=== PATIENT | male | born 1965 | race Caucasian/White ===

== ENCOUNTER 2017-05-09 15:52 | Emergency (ER) | payer OTHER ==
[~2017-05-09] VITALS: Ht 170.2 cm; Wt 91.6 kg
[~2017-05-09 15:52] MED LIST: ALBU18 IN; ASP81EC PO; ATO40T PO; CAR125T PO; CETI10CH PO; CHOL1TAB42 PO; FLUT50SP13; FURO20TA PO; HYDR-4663 PO; LEVO100T8 PO; LOSA25TA9 PO; OME20T PO; PRAM0.12 PO; SERT-138 PO; SPIR25TA89 PO
[2017-05-09 16:41] LABS: Basophils # (auto) 0 uL; Basophils % (auto) 0.4 % (0.0-2.0); CONDITION Y; Eosinophils # (auto) 0.3 uL; Eosinophils % (auto) 2.2 % (0.0-7.0); Hematocrit 48.6 % (41.0-53.0); Hemoglobin 16.9 g/dL (13.5-17.5); Lymphocytes # (auto) 2.1 uL; Lymphocytes % (auto) 17.3 % (10.0-50.0); Mean Corpuscular Hgb Conc. 34.8 g/dL (32.0-36.0); Mean Corpuscular Volume 86.3 fL (80.0-100.0); Mean Platelet Volume 9.5 fL (7.4-10.4); Monocytes # (auto) 0.7 uL; Monocytes % (auto) 6.1 % (0.0-12.0); Neutrophils # (auto) 8.8 uL; Platelet Count (auto) 237 10^3/uL (140-450); Red Cell Distribution Width 14.3 % (11.6-16.0); White Blood Cell 11.9 10^3/uL (4.4-10.8)
[2017-05-09 17:01] LABS: Albumin 3.8 g/dL (3.4-5.0); Alkaline Phosphatase 163 U/L (45-117); Anion Gap 9 (5-15); Aspartate Aminotransferase 17 U/L (15-37); BUN/Creatinine Ratio 12.3; Bilirubin, Total 0.3 mg/dL (0.2-1.0); Blood Urea Nitrogen 10 mg/dL (7-18); Calcium 9.1 mg/dL (8.5-10.1); Carbon Dioxide 24 mmol/L (21-32); Chloride 104 mmol/L (98-107); GFR African American 130 mL/min; GFR Non-African American 108 mL/min; Glucose 94 mg/dL (74-106); Magnesium 2.2 mg/dL (1.6-2.6); Potassium 3.8 mmol/L (3.5-5.1); Sodium 137 mmol/L (136-145); Total Protein 7.9 g/dL (6.4-8.2)
[2017-05-09 17:04] LABS: B-Type Natriuretic Peptide 13.21 pg/mL (0-100)
[2017-05-09] MEDS ORDERED: ASPirin 325 MG TAB PO ONE (17:15)
[2017-05-09 17:25] LABS: Temperature: 22.9 C (20.0-25.0)
[2017-05-09 17:49] VITALS: BP 143/81
== END 2017-05-09 17:54 | disposition home or self-care (01) ==
LOC: ER 15:55
DX: R07.89 Other chest pain (principal); J40 Bronchitis, not specified as acute or chronic; J44.9 Chronic obstructive pulmonary disease, unspecified; I13.0 Hypertensive heart and chronic kidney disease with heart failure and stage 1 through stage 4 chronic kidney disease, or unspecified chronic kidney disease; N18.9 Chronic kidney disease, unspecified; I50.9 Heart failure, unspecified; R51 Headache; I25.2 Old myocardial infarction; E07.9 Disorder of thyroid, unspecified; F17.210 Nicotine dependence, cigarettes, uncomplicated; Z79.82 Long term (current) use of aspirin; Z88.0 Allergy status to penicillin
CPT/HCPCS: 36415; 70450; 71020; 80053; 83735; 83880; 84484; 85025; 93005

== ENCOUNTER 2017-06-13 17:29 | Emergency (ER) | payer OTHER ==
[~2017-06-13] VITALS: Ht 170.2 cm; Wt 89.4 kg
[2017-06-13 17:43] VITALS: BP 120/75
[2017-06-13 18:26] LABS: Urine Bilirubin Negative (Negative); Urine Blood Negative /uL (Negative); Urine Color Yellow (Yellow); Urine Glucose Normal (Normal); Urine Ketone Negative (Negative); Urine Mucus FEW (None Seen); Urine Nitrite Negative (Negative); Urine RBC 1 /hpf (0 - 3); Urine Squamous Epithelial Cell FEW /hpf (<5); Urine Urobilinogen Normal (Negative); Urine pH 5.5 (5.0-8.0)
[2017-06-13 18:40] LABS: B-Type Natriuretic Peptide 14.39 pg/mL (0-100)
[2017-06-13 18:41] LABS: Albumin 3.9 g/dL (3.4-5.0); Alkaline Phosphatase 159 U/L (45-117); Anion Gap 8 (5-15); Aspartate Aminotransferase 19 U/L (15-37); BUN/Creatinine Ratio 10.3; Bilirubin, Total 0.3 mg/dL (0.2-1.0); Blood Urea Nitrogen 9 mg/dL (7-18); Carbon Dioxide 25 mmol/L (21-32); Chloride 104 mmol/L (98-107); GFR African American 120 mL/min; GFR Non-African American 99 mL/min; Glucose 92 mg/dL (74-106); Magnesium 2.3 mg/dL (1.6-2.6); Potassium 3.7 mmol/L (3.5-5.1); Sodium 137 mmol/L (136-145); Temperature: 22.2 C (20.0-25.0); Total Protein 7.8 g/dL (6.4-8.2)
[2017-06-13 21:15] LABS: Basophils # (auto) 0.1 uL; Basophils % (auto) 0.7 % (0.0-2.0); CONDITION Y; Eosinophils # (auto) 0.4 uL; Eosinophils % (auto) 3.3 % (0.0-7.0); Hemoglobin 16.5 g/dL (13.5-17.5); Lymphocytes # (auto) 2.8 uL; Lymphocytes % (auto) 23.4 % (10.0-50.0); Mean Corpuscular Hemoglobin 28.9 pg (28.0-32.0); Mean Corpuscular Hgb Conc. 33.8 g/dL (32.0-36.0); Mean Corpuscular Volume 85.7 fL (80.0-100.0); Monocytes # (auto) 0.8 uL; Neutrophils # (auto) 7.8 uL; Neutrophils % (auto) 65.6 % (37.0-80.0); Platelet Count (auto) 272 10^3/uL (140-450); Red Cell Distribution Width 14.2 % (11.6-16.0); White Blood Cell 11.9 10^3/uL (4.4-10.8)
[2017-06-15] MEDS ORDERED: LOSA25TA9 PO (01:41)
[2017-06-15] MEDS ORDERED: CARV12.544 PO (01:41)
== END 2017-06-13 21:51 | disposition left against medical advice (07) ==
LOC: ER 17:53
DX: R07.89 Other chest pain (principal); Z53.21 Procedure and treatment not carried out due to patient leaving prior to being seen by health care provider
CPT/HCPCS: 36415; 71010; 80053; 81001; 83735; 83880; 84484; 93005

== ENCOUNTER 2017-12-20 03:16 | Emergency (ER) | payer OTHER ==
[~2017-12-20] VITALS: Ht 170.2 cm; Wt 86.2 kg
[~2017-12-20 03:16] MED LIST changes: -HYDR-4663 PO
[2017-12-20] MEDS ORDERED: NALBUPHINE HCL 10 MG/1ml INJECTION IM ONE (07:15)
[2017-12-20 07:21] VITALS: BP 148/88
== END 2017-12-20 07:43 | disposition home or self-care (01) ==
LOC: ER 03:16
DX: M43.6 Torticollis (principal); I13.0 Hypertensive heart and chronic kidney disease with heart failure and stage 1 through stage 4 chronic kidney disease, or unspecified chronic kidney disease; I50.9 Heart failure, unspecified; N18.9 Chronic kidney disease, unspecified; J44.9 Chronic obstructive pulmonary disease, unspecified; I25.2 Old myocardial infarction; E07.9 Disorder of thyroid, unspecified; Z90.49 Acquired absence of other specified parts of digestive tract; F17.210 Nicotine dependence, cigarettes, uncomplicated
CPT/HCPCS: 70450; 96372; 99284; J2300

== ENCOUNTER 2018-07-14 13:59 | Emergency (ER) | payer OTHER ==
[~2018-07-14] VITALS: Ht 170.2 cm; Wt 88.9 kg
[~2018-07-14 13:59] MED LIST changes: +LOSA25TA40 PO; -LOSA25TA9 PO; -SPIR25TA89 PO
[2018-07-14 14:12] VITALS: BP 146/84
[2018-07-14] MEDS ORDERED: INDOMETHACIN 25 MG CAP PO ONE (15:00)
== END 2018-07-14 15:19 | disposition home or self-care (01) ==
LOC: ER 13:59
DX: M25.571 Pain in right ankle and joints of right foot (principal); I13.0 Hypertensive heart and chronic kidney disease with heart failure and stage 1 through stage 4 chronic kidney disease, or unspecified chronic kidney disease; N18.9 Chronic kidney disease, unspecified; I50.9 Heart failure, unspecified; J44.9 Chronic obstructive pulmonary disease, unspecified; E07.9 Disorder of thyroid, unspecified; I25.2 Old myocardial infarction; F17.210 Nicotine dependence, cigarettes, uncomplicated; Z88.0 Allergy status to penicillin; Z79.899 Other long term (current) drug therapy; Z79.82 Long term (current) use of aspirin
CPT/HCPCS: 73610

== ENCOUNTER 2018-08-26 21:13 | Inpatient (IN) | payer OTHER ==
[~2018-08-26] VITALS: Ht 170.2 cm; Wt 90.0 kg
[2018-08-26 22:01] LABS: Urine Bacteria NONE SEEN /hpf (None Seen); Urine Blood Negative /uL (Negative); Urine Hyaline Cast FEW /lpf (0 - 2); Urine Mucus FEW (None Seen); Urine Specific Gravity 1.015 (1.001-1.035); Urine WBC 4 /hpf (0 - 3)
[2018-08-26 22:07] LABS: Basophils # (auto) 0 uL; Basophils % (auto) 0.3 % (0.0-2.0); Eosinophils # (auto) 0.4 uL; Eosinophils % (auto) 3.4 % (0.0-7.0); Hemoglobin 17.5 g/dL (13.5-17.5); Lymphocytes # (auto) 3.3 uL; Mean Corpuscular Hemoglobin 29.7 pg (28.0-32.0); Mean Corpuscular Hgb Conc. 34.2 g/dL (32.0-36.0); Mean Corpuscular Volume 86.8 fL (80.0-100.0); Monocytes % (auto) 8.5 % (0.0-12.0); Neutrophils # (auto) 7.1 uL; Neutrophils % (auto) 59.8 % (37.0-80.0); Nucleated Red Blood Cells % 0.2 %; Platelet Count (auto) 245 10^3/uL (140-450); Red Blood Cells 5.88 10^6/uL (4.5-5.90); Red Cell Distribution Width 14.3 % (11.8-14.3); White Blood Cell 11.9 10^3/uL (4.4-10.8)
[2018-08-26 22:21] LABS: Alanine Aminotransferase 27 U/L (16-61); Anion Gap 10 (5-15); BUN/Creatinine Ratio 10.6; Blood Urea Nitrogen 11 mg/dL (7-18); Calcium 8.7 mg/dL (8.5-10.1); Carbon Dioxide 25 mmol/L (21-32); Chloride 104 mmol/L (98-107); GFR African American 97 mL/min; GFR Non-African American 80 mL/min; Glucose 92 mg/dL (74-106); Magnesium 2.2 mg/dL (1.6-2.6); Potassium 3.6 mmol/L (3.5-5.1); Sodium 139 mmol/L (136-145)
[2018-08-26 22:29] LABS: Alkaline Phosphatase 155 U/L (45-117); Aspartate Aminotransferase 21 U/L (15-37); Bilirubin, Total 0.5 mg/dL (0.2-1.0); Total Protein 7.9 g/dL (6.4-8.2)
[2018-08-27] MEDS ORDERED: FUROSEMIDE 20 MG/2 ML VIAL IV ONE (00:45)
[2018-08-27] MEDS ORDERED: NITROGLYCERIN 0.4 MG SL TAB SL PRN (02:45)
[2018-08-27] MEDS ORDERED: MORPHINE SULFATE 4 MG/ML SYR/VIAL IV PRN (02:45)
[2018-08-27] MEDS ORDERED: ACETAMINOPHEN 500 MG TAB PO PRN (02:45)
[2018-08-27] MEDS ORDERED: ONDANSETRON HCL 4 MG/2 ML VIAL IV PRN (02:45)
[2018-08-27] MEDS ORDERED: HYDROcodone-ACET 5/325MG TAB PO PRN (02:45)
[2018-08-27 03:50] VITALS: BP 122/84
[2018-08-27 05:00] VITALS: BP 122/84
[2018-08-27] MEDS ORDERED: ATOR1TAB PO (05:04)
[2018-08-27] MEDS ORDERED: LOSA25TA40 PO (05:04)
[2018-08-27] MEDS: LEVOTHYROXINE SODIUM 100 MCG TAB PO SCH (06:37)
[2018-08-27 09:00] VITALS: BP 126/78
[2018-08-27] MEDS: CARVEDILOL 12.5 MG TAB PO SCH ×2 (09:47→22:19)
[2018-08-27] MEDS: SERTRALINE HCL 50 MG TAB PO SCH (09:47)
[2018-08-27] MEDS: ASPirin-EC 81 mg tab PO SCH (09:47)
[2018-08-27] MEDS: FUROSEMIDE 20 MG TAB PO SCH (09:48)
[2018-08-27 13:00] VITALS: BP 110/68
[2018-08-27] MEDS: ENOXAPARIN SOD 40 MG/0.4 ML SYRINGE SC SCH (13:40)
[2018-08-27 17:00] VITALS: BP 106/71
[2018-08-27 22:00] VITALS: BP 122/74
[2018-08-27] MEDS ORDERED: PRAMIPEXOLE DIHYDROCHLORIDE MO 0.25 MG TAB PO SCH (22:00)
[2018-08-27] MEDS ORDERED: ATORVASTATIN 20 MG TAB PO SCH (22:00)
[2018-08-28 05:45] VITALS: BP 114/64
[2018-08-28] MEDS: LEVOTHYROXINE SODIUM 100 MCG TAB PO SCH (06:38)
[2018-08-28 08:00] LABS: Basophils # (auto) 0.1 uL; Eosinophils # (auto) 0.3 uL; Eosinophils % (auto) 3.3 % (0.0-7.0); Hematocrit 50.7 % (41.0-53.0); Hemoglobin 17.3 g/dL (13.5-17.5); Lymphocytes # (auto) 2.4 uL; Lymphocytes % (auto) 28.7 % (10.0-50.0); Mean Corpuscular Hemoglobin 29.4 pg (28.0-32.0); Mean Corpuscular Hgb Conc. 34.1 g/dL (32.0-36.0); Mean Corpuscular Volume 86.4 fL (80.0-100.0); Monocytes # (auto) 0.7 uL; Monocytes % (auto) 8.6 % (0.0-12.0); Neutrophils # (auto) 4.9 uL; Neutrophils % (auto) 58.4 % (37.0-80.0); Nucleated Red Blood Cells % 0.2 %; Platelet Count (auto) 202 10^3/uL (140-450); Red Blood Cells 5.87 10^6/uL (4.5-5.90); Red Cell Distribution Width 14.7 % (11.8-14.3); White Blood Cell 8.5 10^3/uL (4.4-10.8)
[2018-08-28 08:19] LABS: BUN/Creatinine Ratio 18.1; Potassium 3.8 mmol/L (3.5-5.1)
[2018-08-28 09:15] VITALS: BP 125/85
[2018-08-28] MEDS: FUROSEMIDE 20 MG TAB PO SCH (09:26)
[2018-08-28] MEDS: ENOXAPARIN SOD 40 MG/0.4 ML SYRINGE SC SCH (09:26)
[2018-08-28] MEDS: ASPirin-EC 81 mg tab PO SCH (09:27)
[2018-08-28] MEDS: SERTRALINE HCL 50 MG TAB PO SCH (09:27)
[2018-08-28] MEDS: CARVEDILOL 12.5 MG TAB PO SCH (09:27)
[2018-08-28 13:02] VITALS: BP 125/85
[2018-08-28 13:18] VITALS: BP 117/90
== END 2018-08-28 14:30 | disposition home or self-care (01) | DRG 194 ==
LOC: ER 21:14 → TELE 21:15 → TELE-CENTR 08-27 03:46
PROVIDERS: ADMIT Nurse Practitioner Family; ATTEND Internal Medicine
DX: I11.0 Hypertensive heart disease with heart failure (principal); E03.9 Hypothyroidism, unspecified; I50.43 Acute on chronic combined systolic (congestive) and diastolic (congestive) heart failure; I25.10 Atherosclerotic heart disease of native coronary artery without angina pectoris; E78.5 Hyperlipidemia, unspecified; F17.210 Nicotine dependence, cigarettes, uncomplicated; F32.9 Major depressive disorder, single episode, unspecified; F41.9 Anxiety disorder, unspecified; J44.9 Chronic obstructive pulmonary disease, unspecified; F10.10 Alcohol abuse, uncomplicated; Z79.82 Long term (current) use of aspirin; Z80.3 Family history of malignant neoplasm of breast; Z82.3 Family history of stroke; Z82.49 Family history of ischemic heart disease and other diseases of the circulatory system; Z95.810 Presence of automatic (implantable) cardiac defibrillator; Z83.3 Family history of diabetes mellitus; Z88.0 Allergy status to penicillin; Z71.41 Alcohol abuse counseling and surveillance of alcoholic; Z71.6 Tobacco abuse counseling; R07.2 Precordial pain
CPT/HCPCS: 36415; 71045; 80048; 80053; 81001; 83735; 83880; 84484; 85025; 93005; 93306; 94761; 96374; G0378

== ENCOUNTER 2019-03-14 17:18 | Emergency (ER) | payer MEDICAID, OTHER ==
[~2019-03-14] VITALS: Ht 170.2 cm; Wt 91.6 kg
[~2019-03-14 17:18] MED LIST changes: -ATO40T PO; +ATOR1TAB PO
[2019-03-14 20:03] LABS: Basophils # (auto) 0.1 uL; Basophils % (auto) 1.1 % (0.0-2.0); Eosinophils # (auto) 0.3 uL; Eosinophils % (auto) 3.2 % (0.0-7.0); Hematocrit 48.6 % (41.0-53.0); Lymphocytes % (auto) 28.9 % (10.0-50.0); Mean Corpuscular Hemoglobin 30.2 pg (28.0-32.0); Mean Corpuscular Volume 86.1 fL (80.0-100.0); Monocytes # (auto) 0.7 uL; Monocytes % (auto) 6.9 % (0.0-12.0); Neutrophils # (auto) 6.1 uL; Neutrophils % (auto) 59.9 % (37.0-80.0); Nucleated Red Blood Cells % 0.2 %; Platelet Count (auto) 217 10^3/uL (140-450); Red Blood Cells 5.64 10^6/uL (4.5-5.90); Red Cell Distribution Width 14.2 % (11.8-14.3); White Blood Cell 10.3 10^3/uL (4.4-10.8)
[2019-03-14 20:17] LABS: Albumin 3.9 g/dL (3.4-5.0); Calcium 8.9 mg/dL (8.5-10.1); Potassium 3.6 mmol/L (3.5-5.1)
[2019-03-14 20:20] LABS: Bilirubin, Total 0.5 mg/dL (0.2-1.0); Total Protein 7.7 g/dL (6.4-8.2)
[2019-03-14 23:54] VITALS: BP 125/99
[2019-03-15] MEDS ORDERED: KETOROLAC TROMETH 60MG/2ML VIAL IM ONE
== END 2019-03-15 00:36 | disposition home or self-care (01) ==
LOC: ER 17:18
DX: R51 Headache (principal); R42 Dizziness and giddiness; E11.22 Type 2 diabetes mellitus with diabetic chronic kidney disease; I13.0 Hypertensive heart and chronic kidney disease with heart failure and stage 1 through stage 4 chronic kidney disease, or unspecified chronic kidney disease; N18.9 Chronic kidney disease, unspecified; I50.9 Heart failure, unspecified; J44.9 Chronic obstructive pulmonary disease, unspecified; I25.2 Old myocardial infarction; F17.210 Nicotine dependence, cigarettes, uncomplicated; Z86.39 Personal history of other endocrine, nutritional and metabolic disease; Z79.4 Long term (current) use of insulin; Z95.0 Presence of cardiac pacemaker
CPT/HCPCS: 36415; 70450; 72125; 80053; 85025; 96372; 99284; J1885

== ENCOUNTER 2019-06-12 20:33 | Inpatient (IN) | payer MEDICAID ==
[~2019-06-12] VITALS: Ht 170.2 cm; Wt 98.2 kg
[~2019-06-12 20:33] MED LIST changes: +FURO1TAB33 PO; -FURO20TA PO; +LOSA25TA38 PO; -LOSA25TA40 PO; -SERT-138 PO; +SERT50TA PO
[2019-06-12 21:24] LABS: Basophils # (auto) 0.1 uL; Basophils % (auto) 1.1 % (0.0-2.0); Eosinophils # (auto) 0.4 uL; Eosinophils % (auto) 3.6 % (0.0-7.0); Hematocrit 46.9 % (41.0-53.0); Hemoglobin 16.1 g/dL (13.5-17.5); Lymphocytes # (auto) 3.2 uL; Lymphocytes % (auto) 31.1 % (10.0-50.0); Mean Corpuscular Hemoglobin 29.4 pg (28.0-32.0); Mean Corpuscular Hgb Conc. 34.4 g/dL (32.0-36.0); Mean Corpuscular Volume 85.4 fL (80.0-100.0); Monocytes # (auto) 0.9 uL; Monocytes % (auto) 9.1 % (0.0-12.0); Neutrophils # (auto) 5.7 uL; Neutrophils % (auto) 55.1 % (37.0-80.0); Platelet Count (auto) 221 10^3/uL (140-450); Red Cell Distribution Width 14.5 % (11.8-14.3); White Blood Cell 10.3 10^3/uL (4.4-10.8)
[2019-06-12] MEDS ORDERED: LORazepam 0.5 MG TAB PO ONE (21:30)
[2019-06-12] MEDS ORDERED: NITROGLYCERIN 0.2MG/HR TOPICAL PATCH TD ONE (21:30)
[2019-06-12] MEDS ORDERED: ASPirin-EC 325mg tab PO ONE (21:30)
[2019-06-12 21:38] LABS: Alanine Aminotransferase 28 U/L (16-61); Albumin 3.5 g/dL (3.4-5.0); Anion Gap 9 (5-15); Aspartate Aminotransferase 19 U/L (15-37); BUN/Creatinine Ratio 6.1; Blood Urea Nitrogen 6 mg/dL (7-18); Calcium 8.4 mg/dL (8.5-10.1); Carbon Dioxide 27 mmol/L (21-32); Chloride 104 mmol/L (98-107); GFR African American 104 mL/min; GFR Non-African American 86 mL/min; Glucose 114 mg/dL (74-106); Magnesium 2.2 mg/dL (1.6-2.6); Potassium 3.5 mmol/L (3.5-5.1); Sodium 140 mmol/L (136-145)
[2019-06-12 21:43] LABS: Alkaline Phosphatase 141 U/L (45-117); Bilirubin, Total 0.4 mg/dL (0.2-1.0); Total Protein 7.4 g/dL (6.4-8.2)
[2019-06-12 21:54] LABS: INR < 0.93 (0.9-1.15); Partial Thromboplastin Time 27.2 sec (23.64-32.05)
[2019-06-12 22:54] LABS: Urine Bacteria FEW /hpf (None Seen); Urine Blood Negative /uL (Negative); Urine Mucus FEW (None Seen); Urine Specific Gravity 1.016 (1.001-1.035); Urine WBC 8 /hpf (0 - 3)
[2019-06-13] MEDS ORDERED: ONDANSETRON HCL 4 MG/2 ML VIAL IV PRN (02:30)
[2019-06-13] MEDS ORDERED: MORPHINE SULF INJ 2 MG/ML SYRINGE 1ML IV PRN (02:30)
[2019-06-13] MEDS ORDERED: NITROGLYCERIN 0.4 MG SL TAB SL PRN (02:30)
[2019-06-13] MEDS ORDERED: TEMAZEPAM 15 MG CAP PO PRN (02:30)
[2019-06-13] MEDS: ACETAMINOPHEN 325 MG TAB PO PRN (04:43)
[2019-06-13 04:45] VITALS: BP 99/50
--- NOTE | 2019-06-13 05:01 | NUR ---
Telemetry admit from ER YAMILKA VASQUEZ admitted to Telemetry unit after SBAR received. Patient oriented to Serena Samuel RN primary RN, unit, room, bed, and unit policies regarding patient care and visiting hours. Patient now on continuous telemetry monitoring, tele box # [id number] and telemetry reading on arrival to unit is SR. Patient weighed by bedscale and encouraged to call if they need something. All questions and concerns addressed, patient verbalized understanding, will continue to monitor Note: []
[2019-06-13 05:14] VITALS: BP 99/50
[2019-06-13] MEDS ORDERED: LEVOTHYROXINE SODIUM 50 MCG TAB PO SCH (07:00)
--- NOTE | 2019-06-13 07:15 | NUR ---
Open Shift Note Received report on patient, awake and lying in bed. Patient shows no signs of distress at this time. Patient states still having slight pain 3/10 in chest but states it is better than yesterday. Discussed POC with patient and plans for cardiology consult. Patient verbalized understanding. Bed in lowest locked position, side rails up x2 and call light within reach. Will continue to monitor.
[2019-06-13 08:42] VITALS: BP 100/57
[2019-06-13] MEDS ORDERED: LOSARTAN POTASSIUM 25 MG TAB PO SCH (10:00)
[2019-06-13] MEDS ORDERED: FUROSEMIDE 20 MG TAB PO SCH (10:00)
[2019-06-13] MEDS ORDERED: CARVEDILOL 12.5 MG TAB PO SCH (10:00)
[2019-06-13] MEDS: SERTRALINE HCL 50 MG TAB PO SCH (10:50)
[2019-06-13] MEDS: ASPirin 81 mg TAB PO SCH (10:51)
[2019-06-13] MEDS: FAMOTIDINE 20 MG TAB PO SCH ×2 (10:51→21:45)
[2019-06-13] MEDS ORDERED: CARVEDILOL 3.125 MG TAB PO SCH ×2 (11:00→11:15)
[2019-06-13] MEDS ORDERED: SACUBITRIL-VALSARTAN 24mg/26mg TAB PO ONE (11:15)
[2019-06-13 12:42] LABS: Cholesterol 276 mg/dL (< 200)
[2019-06-13 12:44] LABS: HDL Cholesterol 28 mg/dL (40-59); LDL Cholesterol 188 mg/dL (< 100); Triglycerides 325 mg/dL (< 150)
[2019-06-13 12:46] VITALS: BP 102/58
[2019-06-13] MEDS ORDERED: ENOXAPARIN SOD 40 MG/0.4 ML SYRINGE SC ONE (15:00)
[2019-06-13] MEDS ORDERED: FUROSEMIDE 20 MG/2 ML VIAL IV ONE (16:45)
[2019-06-13 16:59] VITALS: BP 114/69
--- NOTE | 2019-06-13 19:01 | NUR ---
End of Shift Endorsed care to NOC nurse. Patient shows no signs of distress at this time. Bed in lowest locked position, side rails up x2 and call light within reach.
--- NOTE | 2019-06-13 19:30 | NUR ---
Opening Shift Note Assumed care of patient, awake and alert x4. Patient states he is having slight sharp chest pain (pain scale 3/10). Patient states the chest pain has been intermittent since admission. Patient denies nausea, shortness of breath, or radiation at this time. Patient instructed on plan of care and to call for assistance as needed. Bed is locked in lowest position, side rails x 2 are up, and call light is within reach.
[2019-06-13 21:43] VITALS: BP 106/71
[2019-06-13] MEDS: ATORVASTATIN 20 MG TAB PO SCH (21:44)
[2019-06-13] MEDS: SACUBITRIL-VALSARTAN 24mg/26mg TAB PO SCH (21:44)
--- NOTE | 2019-06-14 04:30 | NUR ---
IV INSERTION IV access obtained, via clean sterile technique by inserting 20 gauge catheter at left hand after 2 attempts. IV secured properly. No trauma to site. Patient tolerated well.
[2019-06-14 05:12] VITALS: BP 119/71
[2019-06-14] MEDS: LEVOTHYROXINE SODIUM 100 MCG TAB PO SCH (06:26)
[2019-06-14 06:56] LABS: Basophils # (auto) 0 uL; Basophils % (auto) 0.5 % (0.0-2.0); Eosinophils # (auto) 0.3 uL; Eosinophils % (auto) 3.7 % (0.0-7.0); Hematocrit 45.2 % (41.0-53.0); Hemoglobin 15.6 g/dL (13.5-17.5); Lymphocytes # (auto) 2.3 uL; Lymphocytes % (auto) 28.4 % (10.0-50.0); Mean Corpuscular Hemoglobin 29.5 pg (28.0-32.0); Mean Corpuscular Hgb Conc. 34.5 g/dL (32.0-36.0); Mean Corpuscular Volume 85.4 fL (80.0-100.0); Monocytes # (auto) 0.6 uL; Monocytes % (auto) 7.6 % (0.0-12.0); Neutrophils # (auto) 4.8 uL; Neutrophils % (auto) 59.8 % (37.0-80.0); Nucleated Red Blood Cells % 0.1 %; Platelet Count (auto) 193 10^3/uL (140-450); Red Blood Cells 5.29 10^6/uL (4.5-5.90); Red Cell Distribution Width 14.4 % (11.8-14.3)
[2019-06-14 07:03] LABS: Potassium 3.8 mmol/L (3.5-5.1)
[2019-06-14 07:07] LABS: BUN/Creatinine Ratio 11.7; Calcium 8.6 mg/dL (8.5-10.1)
--- NOTE | 2019-06-14 07:13 | NUR ---
Open Shift Note Received report on patient, asleep in bed but easily awoken. Patient shows no signs of distress at this time. Discussed POC with patient and how stress tests are not performed on the weekends, patient verbalized understanding. Bed in lowest locked position, side rails up x2 and call light within reach. Will continue to monitor.
[2019-06-14 09:00] VITALS: BP 117/80
[2019-06-14] MEDS: FUROSEMIDE 20 MG/2 ML VIAL IV SCH (10:29)
[2019-06-14] MEDS: ENOXAPARIN SOD 40 MG/0.4 ML SYRINGE SC SCH (10:29)
[2019-06-14] MEDS: ASPirin 81 mg TAB PO SCH (10:30)
[2019-06-14] MEDS: FAMOTIDINE 20 MG TAB PO SCH ×2 (10:31→22:21)
[2019-06-14] MEDS: CARVEDILOL 3.125 MG TAB PO SCH (10:31)
[2019-06-14] MEDS: SERTRALINE HCL 50 MG TAB PO SCH (10:31)
[2019-06-14] MEDS: SACUBITRIL-VALSARTAN 24mg/26mg TAB PO SCH ×2 (10:31→22:22)
--- NOTE | 2019-06-14 10:40 | NUR ---
Paged Dr Washington Paged Dr Washington to have echo read. Awaiting call back.
[2019-06-14 13:02] VITALS: BP 116/83
[2019-06-14] MEDS ORDERED: LEVOFLOXACIN 500MG 100 ML IV ONE (16:45)
[2019-06-14 17:00] VITALS: BP 123/74
[2019-06-14] MEDS: ACETAMINOPHEN 325 MG TAB PO PRN (17:40)
--- NOTE | 2019-06-14 18:53 | NUR ---
Closing Note Endorsed care to NOC nurse. Patient shows no signs of distress at this time. Bed in lowest locked position, side rails up x2 and call light within reach. Will continue to monitor.
--- NOTE | 2019-06-14 19:30 | NUR ---
Opening Shift Note Assumed care of patient, awake and alert x4. Patient denies pain at this time. No S/S of distress/SOB noted at this time. Patient instructed on plan of care and to call for assistance as needed. Bed is locked in lowest position, side rails x 2 are up, and call light is within reach.
[2019-06-14 21:49] VITALS: BP 127/79
[2019-06-14] MEDS: ATORVASTATIN 20 MG TAB PO SCH (22:22)
[2019-06-15 05:17] VITALS: BP 118/77
[2019-06-15] MEDS: LEVOTHYROXINE SODIUM 100 MCG TAB PO SCH (06:18)
[2019-06-15 07:10] LABS: BUN/Creatinine Ratio 11.3; Calcium 8.8 mg/dL (8.5-10.1)
--- NOTE | 2019-06-15 07:30 | NUR ---
Opening Shift Note Assumed care of patient, awake and alert. No S/S of distress/SOB or pain. Instructed on POC and to call for assist PRN, will continue to monitor for changes Q1hr and PRN.
[2019-06-15 08:00] VITALS: BP 113/78
[2019-06-15] MEDS: SACUBITRIL-VALSARTAN 24mg/26mg TAB PO SCH ×2 (09:44→21:59)
[2019-06-15] MEDS: ENOXAPARIN SOD 40 MG/0.4 ML SYRINGE SC SCH (09:44)
[2019-06-15] MEDS: FUROSEMIDE 20 MG/2 ML VIAL IV SCH (09:44)
[2019-06-15] MEDS: ASPirin 81 mg TAB PO SCH (09:45)
[2019-06-15] MEDS: CARVEDILOL 3.125 MG TAB PO SCH (09:45)
[2019-06-15] MEDS: FAMOTIDINE 20 MG TAB PO SCH ×2 (09:45→21:59)
[2019-06-15] MEDS: SERTRALINE HCL 50 MG TAB PO SCH (09:45)
--- NOTE | 2019-06-15 11:00 | NUR ---
Patient ambulates ad july in [place] and outside to smoke.
[2019-06-15 12:30] VITALS: BP 120/83
[2019-06-15] MEDS ORDERED: NITROFURANTOIN (MONO) 100 mg CAP PO ONE (14:00)
[2019-06-15] MEDS: ACETAMINOPHEN 325 MG TAB PO PRN (15:34)
[2019-06-15 17:10] VITALS: BP 109/62
--- NOTE | 2019-06-15 19:00 | NUR ---
OPENING NOTE- NOC SHIFT PATIENT IS ALERT AND ORIENTED X4, ANSWERS IN COMPLETE SENTENCES AND MAKES APPROPRIATE EYE CONTACT. PATIENT IS STANDING IN DOOR WAY AND IS ASKED TO RETURN TO BED FOR ASSESSMENT. GAIT IS NOTED TO BE STEADY AND INDEPENDENTLY, TOLERATES WELL WITHOUT NC O2. BEDSIDE TABLE IS WITHIN REACH, CALL LIGHT WITHIN REACH, DISCUSSED POC WITH PATIENT AND INSTRUCTED PATIENT TO CALL PRN; PATIENT VERBALIZED UNDERSTANDING. PATIENT STATED THAT HE WOULD BE GOING DOWN STAIRS TO SMOKE, MADE PATIENT AWARE OF HOSPITAL POLICY; PATIENT VERBALIZED UNDERSTANDING.
--- NOTE | 2019-06-15 19:25 | NUR ---
PATIENT BACK IN BED FROM AMA SMOKE. NO S/SX OF DISTRESS OR SOB NOTED. PATIENT DENIES PAIN AT THIS TIME.
[2019-06-15] MEDS: ATORVASTATIN 20 MG TAB PO SCH (21:59)
[2019-06-15] MEDS: NITROFURANTOIN (MONO) 100 mg CAP PO SCH (21:59)
[2019-06-15 22:00] VITALS: BP 130/80
--- NOTE | 2019-06-16 01:34 | NUR ---
ROUNDS PATIENT IS RESTING IN BED, EYES CLOSED. RESPIRATIONS ARE EVEN AND UNLABORED. NO S/SX OF DISTRESS, SOB OR PAIN.
[2019-06-16 05:24] VITALS: BP 113/72
[2019-06-16] MEDS: LEVOTHYROXINE SODIUM 100 MCG TAB PO SCH (06:39)
--- NOTE | 2019-06-16 06:52 | NUR ---
CLOSING NOTE PATIENT IS AWARE THAT HE IS SCHEDULED FOR A CARDIOLITE STRESS TEST. PATIENT IS AWARE THAT HE CAN ONLY HAVE WATER PRIOR TO TEST. TWO PATENT IVs TO LEFT ARM FOR PROCEDURE ARE PRESENT. NO S/SX OF DISTRESS, SOB OR PAIN. WILL ENDORSE CARE TO DAY SHIFT RN.
--- NOTE | 2019-06-16 07:20 | NUR ---
Open Shift Note Received report on patient, asleep in bed but easily awoken. Patient shows no signs of distress at this time. Discussed POC with patient and plans for stress test. Patient aware to remain NPO until after stress test. Instructed patient not to go downstairs and smoke before stress test, patient verbalized understanding. Patient states no pain at this time. Bed in lowest locked position, side rails up x2 and call light within reach. Will continue to monitor.
[2019-06-16] MEDS ORDERED: ADENOSINE 78 MG in GIVE UN-DILUTED 0 ML IV STA (08:40)
[2019-06-16 10:35] VITALS: BP 126/77
[2019-06-16 11:51] VITALS: BP 128/73
--- NOTE | 2019-06-16 12:24 | NUR ---
Nutrition Assessment Notes please see attached link for complete assessment Est. Needs ABW (80 kg): [id number] kcal (23-25 kcal/kgBW), 80-88 gms pro (1.0-1.1 gms/kgBW). Will continue to monitor pertinent labs and reassess nutrient need prn Addendum: 06/16/19 at [address] Amended: Links added.
[2019-06-16] MEDS: FAMOTIDINE 20 MG TAB PO SCH ×2 (12:33→21:47)
[2019-06-16] MEDS: ENOXAPARIN SOD 40 MG/0.4 ML SYRINGE SC SCH (12:33)
[2019-06-16] MEDS: SACUBITRIL-VALSARTAN 24mg/26mg TAB PO SCH ×2 (12:33→21:47)
[2019-06-16] MEDS: FUROSEMIDE 20 MG/2 ML VIAL IV SCH (12:33)
[2019-06-16] MEDS: NITROFURANTOIN (MONO) 100 mg CAP PO SCH ×2 (12:34→21:47)
[2019-06-16] MEDS: CARVEDILOL 3.125 MG TAB PO SCH (12:34)
[2019-06-16] MEDS: ASPirin 81 mg TAB PO SCH (12:35)
[2019-06-16] MEDS: SERTRALINE HCL 50 MG TAB PO SCH (12:35)
--- NOTE | 2019-06-16 13:25 | NUR ---
Endorsed Care to MIKO Chakraborty Endorsed care to MIKO Chakraborty. Patient currently downstairs.
--- NOTE | 2019-06-16 15:24 | NUR ---
SPOKE WITH DELIA SANCHEZ PT'S STRESS TEST CAME BACK SHOWING L INFERIOR INFARCT. WILL COME DISCUSS WITH PATIENT POSSIBLE LHC.
[2019-06-16 16:57] VITALS: BP 108/74
--- NOTE | 2019-06-16 19:00 | NUR ---
OPENING SHIFT NOTE- NOC SHIFT PATIENT IS ALERT AND ORIENTED X4. PATIENT IS COMFORTABLE IN BED. BED IS LOCKED IN LOWEST POSITION, BED RAILS UP X2 AND HEAD OF BED IS UP >30 DEGREES FOR SAFETY PRECAUTIONS. BEDSIDE TABLE WITHIN REACH, CALL LIGHT WITHIN, PERSONAL BELONGINGS WITHIN REACH. DISCUSSED POC WITH PATIENT AND INSTRUCTED PATIENT TO CALL PRN; PATIENT VERBALIZED UNDERSTANDING. WILL CONTINUE TO MONITOR Q1H AND PRN.
--- NOTE | 2019-06-16 19:30 | NUR ---
PATIENT OFF FLOOR TO SMOKE. AMA IS SIGNED AND CHARTED IN HARD CHART. PATIENT IS AWARE OF HOSPITAL POLICY. EDUCATED PATIENT REGARDING RISKS OF SMOKING. PATIENT VERBALIZES THAT HE IS AWARE AND DECIDES TO GO ANYWAY. STEADY GAIT IS NOTED. NO S/SX OF DISTRESS, SOB OR PAIN. PATIENT IS WEARING TENNIS SHOES, SOCKS AND HIS PERSONAL CLOTHES.
--- NOTE | 2019-06-16 19:48 | NUR ---
PATIENT IS BACK IN BED FROM AMA SMOKE. PATIENT IS RESTING COMFORTABLE IN BED. NO S/SX OF DISTRESS, SOB OR PAIN.
[2019-06-16] MEDS: ATORVASTATIN 20 MG TAB PO SCH (21:48)
[2019-06-16 22:09] VITALS: BP 110/73
[2019-06-17 05:26] VITALS: BP 111/75
[2019-06-17 05:58] LABS: Calcium 8.8 mg/dL (8.5-10.1)
[2019-06-17 05:59] LABS: BUN/Creatinine Ratio 15.7
[2019-06-17] MEDS: LEVOTHYROXINE SODIUM 100 MCG TAB PO SCH (06:51)
--- NOTE | 2019-06-17 07:10 | NUR ---
ENDORSED PATIENT CARE TO DAY SHIFT NURSE ROBERTA RN. PATIENT IS RESTING IN BED. NO S/SX OF DISTRESS, SOB OR PAIN.
[2019-06-17 08:00] VITALS: BP 122/79
[2019-06-17 09:00] VITALS: BP 122/79
[2019-06-17] MEDS: ENOXAPARIN SOD 40 MG/0.4 ML SYRINGE SC SCH (09:42)
[2019-06-17] MEDS: ASPirin 81 mg TAB PO SCH (09:43)
[2019-06-17] MEDS: FAMOTIDINE 20 MG TAB PO SCH (09:43)
[2019-06-17] MEDS: FUROSEMIDE 20 MG/2 ML VIAL IV SCH (09:43)
[2019-06-17] MEDS: NITROFURANTOIN (MONO) 100 mg CAP PO SCH (09:43)
[2019-06-17] MEDS: SACUBITRIL-VALSARTAN 24mg/26mg TAB PO SCH (09:43)
[2019-06-17] MEDS: SERTRALINE HCL 50 MG TAB PO SCH (09:47)
[2019-06-17] MEDS ORDERED: CARVEDILOL 12.5 MG TAB PO SCH (10:00)
--- NOTE | 2019-06-17 10:50 | NUR ---
DR. CRYSTAL AT BEDSIDE.
--- NOTE | 2019-06-17 11:10 | NUR ---
MARTINA OROSCO AT THE BEDSIDE. POC DISCUSSED WITH PT.
[2019-06-17 13:00] VITALS: BP 142/67
[2019-06-17] MEDS ORDERED: SACU1TAB PO (13:18)
[2019-06-17] MEDS ORDERED: NITR100C44 PO (13:18)
[2019-06-17 13:54] VITALS: BP 122/79
[2019-06-17 14:22] VITALS: BP 122/79
--- NOTE | 2019-06-17 15:45 | NUR ---
Discharge instructions given as ordered. Encourage to follow up with PCP and manager biostatistics Dr. Tomas Dunn within 2 days as instructed. All questions and concerns addressed. Patient verbalized understanding. Medication reconciliation form completed and copy given to patient. Prescription given to pt. IV removed with catheter intact, pressure dressing applied. Telemetry unit returned to [facility]. Patient taken to vehicle via wheelchair with all personal belongings, accompanied by staff and family member. No distress noted at time of departure.
== END 2019-06-17 15:50 | disposition home or self-care (01) | DRG 198 ==
LOC: ER 20:34 → TELE 20:35 → TELE-WESTW 06-13 03:45
PROVIDERS: ADMIT Nurse Practitioner; ATTEND Internal Medicine Nephrology
DX: I25.119 Atherosclerotic heart disease of native coronary artery with unspecified angina pectoris (principal); I50.23 Acute on chronic systolic (congestive) heart failure; I13.0 Hypertensive heart and chronic kidney disease with heart failure and stage 1 through stage 4 chronic kidney disease, or unspecified chronic kidney disease; I42.9 Cardiomyopathy, unspecified; B95.2 Enterococcus as the cause of diseases classified elsewhere; E03.9 Hypothyroidism, unspecified; J44.9 Chronic obstructive pulmonary disease, unspecified; N18.9 Chronic kidney disease, unspecified; F41.8 Other specified anxiety disorders; F32.9 Major depressive disorder, single episode, unspecified; E78.5 Hyperlipidemia, unspecified; N39.0 Urinary tract infection, site not specified; G43.909 Migraine, unspecified, not intractable, without status migrainosus; I08.0 Rheumatic disorders of both mitral and aortic valves; E78.00 Pure hypercholesterolemia, unspecified; F17.210 Nicotine dependence, cigarettes, uncomplicated; F41.9 Anxiety disorder, unspecified; Z79.82 Long term (current) use of aspirin; Z80.3 Family history of malignant neoplasm of breast; Z82.3 Family history of stroke; Z82.49 Family history of ischemic heart disease and other diseases of the circulatory system; Z82.5 Family history of asthma and other chronic lower respiratory diseases; Z83.3 Family history of diabetes mellitus; Z87.19 Personal history of other diseases of the digestive system; Z95.810 Presence of automatic (implantable) cardiac defibrillator; Z88.0 Allergy status to penicillin; Z88.8 Allergy status to other drugs, medicaments and biological substances; Z83.6 Family history of other diseases of the respiratory system; Z79.899 Other long term (current) drug therapy
CPT/HCPCS: 36415; 71045; 78452; 80048; 80053; 80061; 81001; 82533; 83735; 83880; 84443; 84484; 85025; 85379; 85610; 85730; 87086; 87088; 87186; 93005; 93017; 93306; 96365; 96367; 96372; G0378; J0153; J1956

== ENCOUNTER 2020-08-05 15:26 | Inpatient (IN) | payer MEDICAID ==
[~2020-08-05] VITALS: Ht 170.2 cm; Wt 90.6 kg
[~2020-08-05 15:26] MED LIST changes: -ASP81EC PO; +ASPI-394 PO; -CETI10CH PO; -CHOL1TAB42 PO; -LOSA25TA38 PO; +NITR-87 PO; -PRAM0.12 PO; +SACU1TAB PO
[2020-08-05] MEDS ORDERED: ASPirin 81 mg TAB PO ONE (15:45)
[2020-08-05 16:27] LABS: Chloride 106 mmol/L (98-107); Potassium 3.4 mmol/L (3.5-5.1); Sodium 139 mmol/L (136-145)
[2020-08-05 16:36] LABS: Alanine Aminotransferase 35 U/L (16-61); Alkaline Phosphatase 159 U/L (45-117); Anion Gap 8 (5-15); Aspartate Aminotransferase 19 U/L (15-37); BUN/Creatinine Ratio 11.7; Bilirubin, Total 0.8 mg/dL (0.2-1.0); Blood Urea Nitrogen 13 mg/dL (7-18); Calcium 8.9 mg/dL (8.5-10.1); Carbon Dioxide 25 mmol/L (21-32); GFR African American 89 mL/min; GFR Non-African American 74 mL/min; Glucose 86 mg/dL (74-106); Total Protein 7.5 g/dL (6.4-8.2)
[2020-08-05 16:49] LABS: Basophils # (auto) 0.1 10 ^3/uL (0-0.2); Basophils % (auto) 0.6 % (0.0-2.0); Eosinophils # (auto) 0.3 10 ^3/uL (0-0.8); Eosinophils % (auto) 2.4 % (0.0-7.0); Hematocrit 46.9 % (41.0-53.0); Hemoglobin 16.2 g/dL (13.5-17.5); Lymphocytes # (auto) 2.6 10 ^3/uL (0.4-5.4); Lymphocytes % (auto) 22.8 % (10.0-50.0); Mean Corpuscular Hemoglobin 29.8 pg (28.0-32.0); Mean Corpuscular Hgb Conc. 34.6 g/dL (32.0-36.0); Monocytes % (auto) 8.5 % (0.0-12.0); Neutrophils # (auto) 7.4 10 ^3/uL (1.6-8.6); Neutrophils % (auto) 65.7 % (37.0-80.0); Nucleated Red Blood Cells % 0.1 %; Platelet Count (auto) 231 10^3/uL (140-450); Red Blood Cells 5.45 10^6/uL (4.5-5.90); Red Cell Distribution Width 14.1 % (11.8-14.3); White Blood Cell 11.3 10^3/uL (4.4-10.8)
[2020-08-05] MEDS ORDERED: POTASSIUM EFFERVESENT TAB 25 MEQ PO ONE (17:00)
[2020-08-05] MEDS ORDERED: MORPHINE SULF INJ 2 MG/ML SYRINGE 1ML IV PRN ×3 (18:00→18:30)
[2020-08-05] MEDS ORDERED: NITROGLYCERIN 0.4 MG SL TAB SL PRN ×2 (18:00→18:30)
[2020-08-05] MEDS ORDERED: ONDANSETRON HCL 4 MG/2 ML VIAL IV PRN (18:30)
[2020-08-05] MEDS ORDERED: DOCUSATE SOD 100 MG CAP PO PRN (18:30)
[2020-08-05] MEDS ORDERED: ALUM & MAG HYDROX-SIMETH LIQ(MAALOX) 30 ML PO PRN (18:30)
[2020-08-05] MEDS ORDERED: ACETAMINOPHEN 325 MG TAB PO PRN (18:30)
[2020-08-05] MEDS ORDERED: POTASSIUM CHL 20MEQ/100ML 100 ML IV ONE (18:30)
[2020-08-05] MEDS ORDERED: LORazepam 0.5 MG TAB PO PRN (18:30)
[2020-08-05] MEDS ORDERED: HYDROcodone-ACET 5/325MG TAB PO PRN (18:30)
[2020-08-05] MEDS ORDERED: SODIUM CHLORIDE 0.9% 1,000 ML IV SCH (18:30)
[2020-08-05] MEDS ORDERED: AZTREONAM 1GM INJ 1 GM in D5W 5% 50 ML IV ONE (18:45)
[2020-08-05 20:02] LABS: Cholesterol 184 mg/dL (< 200)
[2020-08-05 20:06] LABS: HDL Cholesterol 33 mg/dL (40-59); LDL Cholesterol 113 mg/dL (< 100); Triglycerides 328 mg/dL (< 150)
[2020-08-05] MEDS ORDERED: ALBUTEROL SULF 2.5 MG/0.5ML(0.5%) NEB SOLN NEB PRN (20:15)
[2020-08-05] MEDS ORDERED: IPRATROPIUM BROM 0.5 MG/2.5ML INH SOL NEB PRN (20:30)
--- NOTE | 2020-08-05 20:40 | NUR ---
ADMIT TO TELE FROM ER Assumed care of patient who is alert and oriented, currently on RA with no S/S of distress or SOB noted at this time. Patient is oriented to room and hospital policies. Tele monitor #27 running normal sinus at 70bpm. Bed in lowest position, locked, side rails up x2. POC discussed with patient in detail and all questions answered. Patient is ambulatory and encouraged to call for assistance as needed. Call light within reach. Will continue to monitor PRN.
[2020-08-05 20:43] LABS: Urine Bacteria NONE SEEN /hpf (None Seen); Urine Blood Negative /uL (Negative); Urine Mucus MANY (None Seen); Urine Specific Gravity 1.036 (1.001-1.035); Urine WBC 7 /hpf (0 - 3)
[2020-08-05 20:50] VITALS: BP 116/43
[2020-08-05 20:56] LABS: Alcohol, Urine < 3.0 mg/dL (0-10); Amphetamine Screen, Urine NEGATIVE (NEGATIVE); Barbiturate Scree,Urine NEGATIVE (NEGATIVE); Benzodiazephine Screen, Urine NEGATIVE (NEGATIVE); Cannabinoid Screen, Urine NEGATIVE (NEGATIVE); Cocaine Screen, Urine NEGATIVE (NEGATIVE); Opiate Scree,Urine NEGATIVE (NEGATIVE); Phencyclidine Screen, Urine NEGATIVE (NEGATIVE)
[2020-08-05 21:00] VITALS: BP 112/77
[2020-08-05] MEDS ORDERED: AZITHROMYCIN 500MG/ 250ML 250 ML IV ONE (21:00)
--- NOTE | 2020-08-05 21:45 | NUR ---
CALL FROM FAMILY Password verified, updated on plan of care.
[2020-08-05 22:00] VITALS: BP 112/72
[2020-08-05] MEDS ORDERED: IPRATROPIUM BROM 0.5 MG/2.5ML INH SOL NEB SCH (22:00)
[2020-08-05] MEDS ORDERED: ATORVASTATIN 20 MG TAB PO SCH (22:00)
[2020-08-05] MEDS ORDERED: ATOR80TA PO (22:27)
[2020-08-05] MEDS ORDERED: CETI10TA80 PO (22:27)
[2020-08-05] MEDS ORDERED: CHOL20007 PO (22:27)
[2020-08-05] MEDS ORDERED: FLUT1SUS (22:27)
[2020-08-05] MEDS ORDERED: HYDR-4833 PO (22:27)
--- NOTE | 2020-08-05 22:30 | NUR ---
RT NOTE PT WAS SEEN BY RT FOR PRN HHN TX ASSESSMENT. PT IS SLEEPING BUT EASILY AWAKENED. NO SOB OR DISTRESS NOTED. PT STATES NO TX NEEDED AT THIS TIME. NO TX INDICATED EITHER. HR 77, RR 16, BS CLEAR/SIM, POX 96% ON ROOM AIR. WILL CONT TO MONITOR Addendum: 08/05/20 at 2235 by Nika Jessica RT Amended: Links added.
[2020-08-05] MEDS: FAMOTIDINE 20 MG TAB PO SCH (22:32)
[2020-08-05] MEDS: SACUBITRIL-VALSARTAN 24mg/26mg TAB PO SCH (22:32)
[2020-08-05] MEDS: methylPREDNISolone SOD SUCC 40 MG/ML VL IV SCH (22:33)
[2020-08-05] MEDS: CARVEDILOL 3.125 MG TAB PO SCH (22:33)
--- NOTE | 2020-08-05 23:39 | NUR ---
ER CALLED CARDIO CONSULT TO DR. VALERO.
[2020-08-06 05:00] VITALS: BP 97/69
[2020-08-06] MEDS: AZTREONAM 1GM INJ 1 GM in D5W 5% 50 ML IV SCH ×2 (05:40→14:00)
[2020-08-06] MEDS ORDERED: FUROSEMIDE 20 MG/2 ML VIAL IV SCH (06:00)
[2020-08-06] MEDS ORDERED: LEVOTHYROXINE SODIUM 100 MCG TAB PO SCH (07:00)
--- NOTE | 2020-08-06 07:18 | NUR ---
CARE ENDORSED TO GO CROUCH
--- NOTE | 2020-08-06 07:20 | NUR ---
Opening Shift Note Assumed care of patient, awake and alert. No S/S of distress/SOB or pain. Instructed on POC and to call for assist PRN, will continue to monitor for changes Q1hr and PRN. Bed locked in lowest position, HOB elevated at least 30 degrees, call light is within reach and side rails up x 2.
--- NOTE | 2020-08-06 08:16 | NUR ---
AMA TO SMOKE PATIENT SIGNED AMA TO SMOKE. EDUCATED PATIENT ON RISKS OF LEAVING UNIT. PATIENT THEN SIGNED AMA AND LEFT UNIT TO SMOKE IN DESIGNATED SMOKING AREA.
--- NOTE | 2020-08-06 08:25 | NUR ---
PATIENT RETURNED TO ROOM. NO DISTRESS NOTED AT THIS TIME
--- NOTE | 2020-08-06 08:40 | NUR ---
Respiratory note: ASSESSED PT FOR PRN TX PT WAS AWAKE AND ALERT, NO RESP DISTRESS NOTED. HR 76, RR 16, SPO2 95% ON ROOM AIR. BS ARE CLEAR, NO INDICATION FOR TX AT THIS TIME. PT KNOWS TO HAVE RT PAGED IF TX IS NEEDED.
[2020-08-06 09:44] VITALS: BP 102/54
[2020-08-06] MEDS ORDERED: CHOLECALCIFEROL (VITD3) 2,000 UNIT CAP PO SCH (10:00)
[2020-08-06] MEDS ORDERED: SERTRALINE HCL 50 MG TAB PO SCH (10:00)
[2020-08-06] MEDS ORDERED: ENOXAPARIN SOD 40 MG/0.4 ML SYRINGE SC SCH (10:00)
[2020-08-06] MEDS: CARVEDILOL 3.125 MG TAB PO SCH (10:00)
[2020-08-06] MEDS ORDERED: ASPirin 81 mg TAB PO SCH (10:00)
[2020-08-06] MEDS ORDERED: AZITHROMYCIN 500MG/ 250ML 250 ML IV SCH (10:00)
[2020-08-06] MEDS ORDERED: POTASSIUM CHL 20 Meq TABLET PO SCH ×2 (10:00)
[2020-08-06] MEDS: SACUBITRIL-VALSARTAN 24mg/26mg TAB PO SCH (10:24)
[2020-08-06] MEDS: FAMOTIDINE 20 MG TAB PO SCH (10:24)
[2020-08-06] MEDS: methylPREDNISolone SOD SUCC 40 MG/ML VL IV SCH (10:33)
--- NOTE | 2020-08-06 10:35 | NUR ---
patient refused medication Patient refused coreg. Patient verbalized that he felt his blood pressure was too low and that he felt a headache. Blood pressure check performed. BBlood pressure at 102/54. Heart rate at 71. Educated patient on importance of administering medication however patent still refused.
[2020-08-06 12:45] VITALS: BP 101/65
--- NOTE | 2020-08-06 12:53 | NUR ---
ENDORSED CARE TO FUNMI CROUCH
--- NOTE | 2020-08-06 12:58 | NUR ---
Opening Shift Note Assumed care of patient after report received, patient awake and alert Walking in hallway. Patient is on room air with even and unlabored respirations. No S/S of distress/SOB or pain at this time. Instructed on POC and to call for assist PRN, will continue to monitor for changes Q1hr and PRN.
[2020-08-06] MEDS ORDERED: ALBU108A14 IN (13:50)
[2020-08-06] MEDS ORDERED: NITR0.4S29 SL (13:50)
--- NOTE | 2020-08-06 15:23 | NUR ---
Patient Discharged Discharge instructions given as ordered. Encourage to follow up with PMD as instructed. All questions and concerns addressed. Patient verbalized understanding. Medication reconciliation form completed and copy given to patient. IV removed with catheter intact, pressure dressing applied, no trauma to site noted. Telemetry unit returned to ICU. Patient declined wheelchair at this time. Pt escorted with all personal belongings, accompanied by this RN to lobby. Patient alert and awake with even and unlabored respirations. No s/s of distress/SOB or pain noted at time of discharge. Patient ambulating with steady gait at time of departure.
== END 2020-08-06 15:23 | disposition home or self-care (01) | DRG 198 ==
LOC: ER 15:26 → TELE 15:27 → TELE-CENTR 20:35
PROVIDERS: ADMIT Hospitalist; ATTEND Internal Medicine
DX: I25.110 Atherosclerotic heart disease of native coronary artery with unstable angina pectoris (principal); J44.1 Chronic obstructive pulmonary disease with (acute) exacerbation; E87.6 Hypokalemia; I11.0 Hypertensive heart disease with heart failure; I50.82 Biventricular heart failure; E03.9 Hypothyroidism, unspecified; E78.5 Hyperlipidemia, unspecified; F17.210 Nicotine dependence, cigarettes, uncomplicated; F32.9 Major depressive disorder, single episode, unspecified; Z91.19 Patient's noncompliance with other medical treatment and regimen; K21.9 Gastro-esophageal reflux disease without esophagitis; D72.829 Elevated white blood cell count, unspecified; N39.0 Urinary tract infection, site not specified; K29.70 Gastritis, unspecified, without bleeding; Z79.82 Long term (current) use of aspirin; Z79.899 Other long term (current) drug therapy; Z80.3 Family history of malignant neoplasm of breast; Z82.3 Family history of stroke; Z82.49 Family history of ischemic heart disease and other diseases of the circulatory system; Z83.3 Family history of diabetes mellitus; Z86.73 Personal history of transient ischemic attack (TIA), and cerebral infarction without residual deficits; Z91.81 History of falling; Z95.810 Presence of automatic (implantable) cardiac defibrillator; F15.10 Other stimulant abuse, uncomplicated; F10.10 Alcohol abuse, uncomplicated; F41.9 Anxiety disorder, unspecified; R16.0 Hepatomegaly, not elsewhere classified; Z88.0 Allergy status to penicillin; Z88.8 Allergy status to other drugs, medicaments and biological substances; I42.8 Other cardiomyopathies
CPT/HCPCS: 36415; 71046; 80053; 80061; 80307; 81001; 83036; 83880; 84484; 85025; 87040; 87086; 93005; 93306; 96365; 96367; G0378; J3480; J7060

== ENCOUNTER 2021-04-13 11:48 | Emergency (ER) | payer MEDICAID ==
[~2021-04-13] VITALS: Ht 170.2 cm; Wt 86.2 kg
[~2021-04-13 11:48] MED LIST changes: +ALBU108A14 IN; +ATOR-47 PO; -ATOR1TAB PO; +CETI10TA80 PO; +CHOL20007 PO; +FLUT1SUS; -FLUT50SP13; +HYDR-4833 PO; -NITR-87 PO; +NITR0.4S29 SL
[2021-04-13] MEDS ORDERED: SODIUM CHLORIDE 0.9% 1,000 ML IV ONE (12:30)
[2021-04-13 12:34] LABS: Basophils # (auto) 0.1 10 ^3/uL (0-0.2); Basophils % (auto) 1.2 % (0.0-2.0); Eosinophils # (auto) 0.3 10 ^3/uL (0-0.8); Eosinophils % (auto) 2.9 % (0.0-7.0); Hemoglobin 16.5 g/dL (13.5-17.5); Lymphocytes # (auto) 2.7 10 ^3/uL (0.4-5.4); Lymphocytes % (auto) 23.5 % (10.0-50.0); Mean Corpuscular Hgb Conc. 34.4 g/dL (32.0-36.0); Mean Corpuscular Volume 87.2 fL (80.0-100.0); Monocytes # (auto) 0.8 10 ^3/uL (0-1.3); Monocytes % (auto) 6.8 % (0.0-12.0); Neutrophils # (auto) 7.6 10 ^3/uL (1.6-8.6); Neutrophils % (auto) 65.6 % (37.0-80.0); Nucleated Red Blood Cells % 0.1 %; Platelet Count (auto) 220 10^3/uL (140-450); White Blood Cell 11.6 10^3/uL (4.4-10.8)
[2021-04-13] MEDS ORDERED: KETOROLAC TROMETH 30 MG/ML 1ML VIAL IV ONE (12:45)
[2021-04-13] MEDS ORDERED: PROMETHAZINE HCL 25 MG/ML 1ML IM ONE (12:45)
[2021-04-13 12:49] LABS: Magnesium 2.2 mg/dL (1.6-2.6)
[2021-04-13 12:50] LABS: Albumin 3.8 g/dL (3.4-5.0); Calcium 8.8 mg/dL (8.5-10.1); Potassium 3.9 mmol/L (3.5-5.1)
[2021-04-13 12:54] LABS: BUN/Creatinine Ratio 16.1; Bilirubin, Total 0.5 mg/dL (0.2-1.0); Total Protein 7.5 g/dL (6.4-8.2)
[2021-04-13 14:20] VITALS: BP 103/53
[2021-04-13 17:42] LABS: Urine Bacteria NONE SEEN /hpf (None Seen); Urine Blood TRACE /uL (Negative); Urine Mucus FEW (None Seen); Urine WBC 5 /hpf (0 - 3)
== END 2021-04-13 15:29 | disposition home or self-care (01) ==
LOC: ER 11:48
DX: M54.16 Radiculopathy, lumbar region (principal); M79.10 Myalgia, unspecified site; J44.9 Chronic obstructive pulmonary disease, unspecified; I25.2 Old myocardial infarction; F17.210 Nicotine dependence, cigarettes, uncomplicated; I13.0 Hypertensive heart and chronic kidney disease with heart failure and stage 1 through stage 4 chronic kidney disease, or unspecified chronic kidney disease; N18.9 Chronic kidney disease, unspecified; I50.9 Heart failure, unspecified; Z95.810 Presence of automatic (implantable) cardiac defibrillator; Z90.89 Acquired absence of other organs; Z79.82 Long term (current) use of aspirin; Z79.899 Other long term (current) drug therapy; Z88.0 Allergy status to penicillin; Z88.8 Allergy status to other drugs, medicaments and biological substances
CPT/HCPCS: 36415; 71045; 71250; 72131; 80053; 81001; 83690; 83735; 85025; 85049; 96361; 96372; 96374; 99285; J1885; J2550

== ENCOUNTER 2021-04-20 11:37 | Emergency (ER) | payer MEDICAID ==
[~2021-04-20] VITALS: Ht 170.2 cm; Wt 89.8 kg
[~2021-04-20 11:37] MED LIST changes: +CETI10TA2 PO; -CETI10TA80 PO
[2021-04-20] MEDS ORDERED: TETRACAINE HCL 0.5% OPTH(EYE) SOLN 4ML EACHEYE ONE (12:30)
[2021-04-20] MEDS ORDERED: FLUORESCEIN SOD OPTH TEST STRIP OP ONE (12:30)
[2021-04-20 13:20] VITALS: BP 139/80
== END 2021-04-20 13:55 | disposition home or self-care (01) ==
LOC: ER 11:37
DX: S05.01XA Injury of conjunctiva and corneal abrasion without foreign body, right eye, initial encounter (principal); I13.0 Hypertensive heart and chronic kidney disease with heart failure and stage 1 through stage 4 chronic kidney disease, or unspecified chronic kidney disease; N18.9 Chronic kidney disease, unspecified; I50.9 Heart failure, unspecified; J44.9 Chronic obstructive pulmonary disease, unspecified; I25.2 Old myocardial infarction; F17.210 Nicotine dependence, cigarettes, uncomplicated; Z95.0 Presence of cardiac pacemaker; Z90.89 Acquired absence of other organs; Z79.82 Long term (current) use of aspirin; Z79.899 Other long term (current) drug therapy; Z88.0 Allergy status to penicillin; Z88.8 Allergy status to other drugs, medicaments and biological substances; X58.XXXA Exposure to other specified factors, initial encounter; Y93.89 Activity, other specified; Y92.89 Other specified places as the place of occurrence of the external cause; Y99.8 Other external cause status

== ENCOUNTER 2021-08-03 21:50 | Emergency (ER) | payer MEDICAID ==
[~2021-08-03] VITALS: Ht 170.2 cm; Wt 87.1 kg
[2021-08-03 21:52] VITALS: BP 131/74
[2021-08-04] MEDS ORDERED: KETOROLAC TROMETH 60MG/2ML VIAL IM ONE (01:15)
[2021-08-04] MEDS ORDERED: ACETAMINOPHEN 500 MG TAB PO ONE (01:15)
== END 2021-08-04 01:18 | disposition home or self-care (01) ==
LOC: ER 21:50
DX: M25.551 Pain in right hip (principal); I13.0 Hypertensive heart and chronic kidney disease with heart failure and stage 1 through stage 4 chronic kidney disease, or unspecified chronic kidney disease; N18.9 Chronic kidney disease, unspecified; I50.9 Heart failure, unspecified; J44.9 Chronic obstructive pulmonary disease, unspecified; I25.2 Old myocardial infarction; E03.9 Hypothyroidism, unspecified; F17.210 Nicotine dependence, cigarettes, uncomplicated; Z79.82 Long term (current) use of aspirin; Z79.899 Other long term (current) drug therapy; Z88.0 Allergy status to penicillin; Z88.8 Allergy status to other drugs, medicaments and biological substances
CPT/HCPCS: 72170; 73502; 96372; 99284; J1885

== ENCOUNTER 2021-12-24 11:40 | Emergency (ER) | payer MEDICAID ==
[~2021-12-24] VITALS: Ht 170.2 cm; Wt 89.8 kg
[2021-12-24] MEDS ORDERED: SODIUM CHLORIDE 0.9% 1,000 ML IV ONE (12:00)
[2021-12-24] MEDS ORDERED: ASPirin 81 mg TAB PO ONE (12:00)
[2021-12-24] MEDS ORDERED: SODIUM CHLORIDE 0.9% 250 ML IV ONE (12:30)
[2021-12-24] MEDS ORDERED: FUROSEMIDE 40 MG/4 ML VIAL IV ONE (12:45)
[2021-12-24 13:05] LABS: Basophils # (auto) 0.1 10 ^3/uL (0-0.2); Basophils % (auto) 0.8 % (0.0-2.0); Eosinophils # (auto) 0.3 10 ^3/uL (0-0.8); Eosinophils % (auto) 3.4 % (0.0-7.0); Hematocrit 46.3 % (41.0-53.0); Hemoglobin 15.6 g/dL (13.5-17.5); Lymphocytes # (auto) 2.6 10 ^3/uL (0.4-5.4); Lymphocytes % (auto) 27.6 % (10.0-50.0); Mean Corpuscular Hemoglobin 29.3 pg (28.0-32.0); Mean Corpuscular Hgb Conc. 33.7 g/dL (32.0-36.0); Mean Corpuscular Volume 86.8 fL (80.0-100.0); Monocytes # (auto) 0.6 10 ^3/uL (0-1.3); Monocytes % (auto) 6.8 % (0.0-12.0); Neutrophils # (auto) 5.7 10 ^3/uL (1.6-8.6); Neutrophils % (auto) 61.4 % (37.0-80.0); Nucleated Red Blood Cells % 0.1 %; Red Blood Cells 5.33 10^6/uL (4.5-5.90); White Blood Cell 9.3 10^3/uL (4.4-10.8)
[2021-12-24 13:22] LABS: Albumin 3.5 g/dL (3.4-5.0); Calcium 8.6 mg/dL (8.5-10.1); Potassium 3.8 mmol/L (3.5-5.1)
[2021-12-24 13:28] LABS: BUN/Creatinine Ratio 10.5; Bilirubin, Total 0.6 mg/dL (0.2-1.0); Total Protein 6.8 g/dL (6.4-8.2)
[2021-12-24] MEDS ORDERED: IOHEXOL 350 MG/ML 100ML IJ ONE (14:30)
[2021-12-24 15:41] VITALS: BP 108/74
== END 2021-12-24 16:07 | disposition home or self-care (01) ==
LOC: ER 11:40
DX: I13.0 Hypertensive heart and chronic kidney disease with heart failure and stage 1 through stage 4 chronic kidney disease, or unspecified chronic kidney disease (principal); N18.9 Chronic kidney disease, unspecified; I50.9 Heart failure, unspecified; R07.89 Other chest pain; I25.2 Old myocardial infarction; J44.9 Chronic obstructive pulmonary disease, unspecified; E03.9 Hypothyroidism, unspecified; F17.210 Nicotine dependence, cigarettes, uncomplicated; Z95.0 Presence of cardiac pacemaker; Z90.89 Acquired absence of other organs; Z79.82 Long term (current) use of aspirin; Z79.899 Other long term (current) drug therapy; Z88.0 Allergy status to penicillin; Z88.8 Allergy status to other drugs, medicaments and biological substances
CPT/HCPCS: 36415; 71275; 80053; 83880; 84484; 85025; 93005; 96361; 96374; 99285; J1940; J7050; Q9967

== ENCOUNTER 2022-04-02 11:39 | Emergency (ER) | payer MEDICAID ==
[~2022-04-02] VITALS: Ht 170.2 cm; Wt 86.2 kg
[2022-04-02 11:47] VITALS: BP 129/72
== END 2022-04-02 13:52 | disposition home or self-care (01) ==
LOC: ER 11:39
DX: S20.212A Contusion of left front wall of thorax, initial encounter (principal); I13.0 Hypertensive heart and chronic kidney disease with heart failure and stage 1 through stage 4 chronic kidney disease, or unspecified chronic kidney disease; N18.9 Chronic kidney disease, unspecified; I50.9 Heart failure, unspecified; J44.9 Chronic obstructive pulmonary disease, unspecified; F17.210 Nicotine dependence, cigarettes, uncomplicated; Z88.0 Allergy status to penicillin; W26.8XXA Contact with other sharp object(s), not elsewhere classified, initial encounter; Y93.89 Activity, other specified; Y92.89 Other specified places as the place of occurrence of the external cause; Y99.8 Other external cause status
CPT/HCPCS: 71046; 93005

== ENCOUNTER 2022-10-24 06:22 | Inpatient (IN) | payer MEDICAID ==
[~2022-10-24] VITALS: Ht 170.2 cm; Wt 87.6 kg
[2022-10-24] VITALS (8 sets, daily range): BP systolic 117–159; BP diastolic 67–109
[2022-10-24] MEDS ORDERED: ONDANSETRON HCL 4 MG/2 ML VIAL IV ONE (07:00)
[2022-10-24] MEDS ORDERED: ASPirin 325 MG TAB PO ONE (07:00)
[2022-10-24] MEDS ORDERED: MORPHINE SULFATE 4 MG/ML SYR/VIAL IV ONE (07:00)
[2022-10-24] MEDS ORDERED: NITROGLYCERIN 0.4 MG SL TAB SL ONE (07:00)
[2022-10-24 07:05] LABS: Basophils # (auto) 0.1 10 ^3/uL (0-0.2); Basophils % (auto) 0.3 % (0.0-2.0); Eosinophils # (auto) 0 10 ^3/uL (0-0.8); Hematocrit 45.6 % (41.0-53.0); Hemoglobin 16.1 g/dL (13.5-17.5); Lymphocytes # (auto) 0.8 10 ^3/uL (0.4-5.4); Lymphocytes % (auto) 4.8 % (10.0-50.0); Mean Corpuscular Hemoglobin 30.1 pg (28.0-32.0); Mean Corpuscular Hgb Conc. 35.4 g/dL (32.0-36.0); Mean Corpuscular Volume 85.2 fL (80.0-100.0); Monocytes # (auto) 0.1 10 ^3/uL (0-1.3); Monocytes % (auto) 0.8 % (0.0-12.0); Neutrophils # (auto) 14.9 10 ^3/uL (1.6-8.6); Neutrophils % (auto) 94.1 % (37.0-80.0); Nucleated Red Blood Cells % 0.8 %; Red Blood Cells 5.35 10^6/uL (4.5-5.90); Red Cell Distribution Width 13.8 % (11.8-14.3); White Blood Cell 15.8 10^3/uL (4.4-10.8)
[2022-10-24 07:10] LABS: Albumin 4.2 g/dL (3.4-5.0); Potassium 3.9 mmol/L (3.5-5.1)
[2022-10-24 07:12] LABS: BUN/Creatinine Ratio 16.1
[2022-10-24 07:14] LABS: Bilirubin, Total 0.4 mg/dL (0.2-1.0); Total Protein 7.4 g/dL (6.4-8.2)
[2022-10-24] MEDS ORDERED: ENOXAPARIN SOD 100 MG/1 ML SYRINGE SC ONE (07:30)
[2022-10-24] MEDS ORDERED: DAPA1TAB4 PO (09:18)
[2022-10-24] MEDS ORDERED: NTG 0.1MG/HR TOPICAL PATCH TD ONE (09:30)
[2022-10-24] MEDS ORDERED: NITROGLYCERIN 0.4 MG SL TAB SL PRN ×2 (09:30)
[2022-10-24] MEDS ORDERED: MORPHINE SULFATE INJ 2 MG/ml SYRG IV PRN ×2 (09:30)
[2022-10-24 09:59] LABS: INR 0.94 (0.9-1.15); Partial Thromboplastin Time 27.8 sec (24.6-33.4)
[2022-10-24] MEDS: EMPAGLIFLOZIN 10 MG TAB PO SCH (10:00)
[2022-10-24] MEDS ORDERED: PATIENTS OWN MEDICATION (Dapagliflozin Propanediol (Farxiga) 10 MG) PO SCH (10:00)
[2022-10-24] MEDS ORDERED: CARVEDILOL 3.125 MG TAB PO SCH (10:00)
[2022-10-24] MEDS: LEVOTHYROXINE SODIUM 100 MCG TAB PO SCH (10:00)
[2022-10-24] MEDS: SACUBITRIL-VALSARTAN 24mg/26mg TAB PO SCH ×2 (10:00→21:26)
[2022-10-24 10:17] LABS: Cholesterol 205 mg/dL (< 200); HDL Cholesterol 46 mg/dL (40-59); LDL Cholesterol 149 mg/dL (< 100); Triglycerides 60 mg/dL (< 150)
[2022-10-24] MEDS ORDERED: ONDANSETRON HCL 4 MG/2 ML VIAL IV PRN (10:45)
[2022-10-24] MEDS ORDERED: HEPARIN SODIUM (PORCINE) 5000 UNITS/ML 1ML VIAL IV ONE (10:45)
[2022-10-24] MEDS ORDERED: DEXTROSE (50%) 50ML SYRG IV PRN (10:45)
[2022-10-24] MEDS ORDERED: HYDROcodone-ACET 5/325MG TAB PO PRN (10:45)
[2022-10-24] MEDS ORDERED: MORPHINE SULFATE 4 MG/ML SYR/VIAL IV PRN (10:45)
[2022-10-24] MEDS: PANTOPRAZOLE 40 MG TAB PO SCH (10:45)
[2022-10-24] MEDS: InsuLIN REG 1unit/0.01ml Soln (100units/ml) SC SCH ×2 (11:30→17:55)
[2022-10-24] MEDS: ACCU-CHEK COMFORT CURVE STRIP VI SCH ×3 (11:30→21:28)
[2022-10-24] MEDS ORDERED: HEPARIN DRIP/D5W 100UNITS/ML 250 ML IV SCH (11:45)
[2022-10-24] MEDS ORDERED: VERAPAMIL 2.5MG/ML INJ 2ML VIAL IV ONE (16:10)
[2022-10-24] MEDS ORDERED: HEPARIN SODIUM (PORCINE) 5000 UNITS/ML 1ML VIAL ONE (16:10)
[2022-10-24] MEDS ORDERED: ANGIOMAX 250 MG VIAL IV ONE (16:10)
[2022-10-24] MEDS ORDERED: SODIUM CHL 0.9% 50 ML ONE (16:11)
[2022-10-24] MEDS ORDERED: MIDAZOLAM HCL 2MG/2ML 2ml VIAL (1mg/ml) ONE (16:11)
[2022-10-24] MEDS ORDERED: IOHEXOL 350 MG/ML 100ML IJ ONE ×2 (16:11→17:00)
[2022-10-24] MEDS ORDERED: LIDOCAINE 2%HCL (LOCAL ANESTH.) INJ 10ml MDV ONE (16:11)
[2022-10-24] MEDS ORDERED: fentaNYL CITRATE 100 MCG/2 ML VL ONE (16:11)
[2022-10-24] MEDS ORDERED: ATROPINE SULF 1 MG/10ml SYR ONE (16:53)
[2022-10-24] MEDS ORDERED: EPINEPHrine HCL 1 MG/10 ML SYRG ONE (16:53)
[2022-10-24] MEDS ORDERED: CLOPIDOGREL 300 MG TAB ONE (17:25)
[2022-10-24] MEDS ORDERED: NICOTINE 14 MG/24HR TOPICAL PATCH TD ONE (20:00)
[2022-10-24 21:06] LABS: INR 0.93 (0.9-1.15); Partial Thromboplastin Time 33.1 sec (24.6-33.4)
[2022-10-24] MEDS ORDERED: InsuLIN REG 1unit/0.01ml Soln (100units/ml) SC SCH (22:00)
[2022-10-24] MEDS ORDERED: ATORVASTATIN 20 MG TAB PO SCH (22:00)
[2022-10-25 05:00] VITALS: BP 101/62
[2022-10-25] MEDS: InsuLIN REG 1unit/0.01ml Soln (100units/ml) SC SCH ×2 (06:16→12:19)
[2022-10-25] MEDS: ACCU-CHEK COMFORT CURVE STRIP VI SCH ×2 (06:16→11:30)
[2022-10-25 06:28] LABS: Basophils # (auto) 0.1 10 ^3/uL (0-0.2); Basophils % (auto) 0.4 % (0.0-2.0); Eosinophils # (auto) 0 10 ^3/uL (0-0.8); Eosinophils % (auto) 0.2 % (0.0-7.0); Hematocrit 44.6 % (41.0-53.0); Hemoglobin 15.6 g/dL (13.5-17.5); Lymphocytes # (auto) 2.8 10 ^3/uL (0.4-5.4); Mean Corpuscular Hemoglobin 30.1 pg (28.0-32.0); Mean Corpuscular Volume 86.1 fL (80.0-100.0); Monocytes # (auto) 0.9 10 ^3/uL (0-1.3); Monocytes % (auto) 6.6 % (0.0-12.0); Neutrophils # (auto) 10.2 10 ^3/uL (1.6-8.6); Neutrophils % (auto) 72.8 % (37.0-80.0); Nucleated Red Blood Cells % 0.1 %; Red Blood Cells 5.18 10^6/uL (4.5-5.90); Red Cell Distribution Width 14.1 % (11.8-14.3)
[2022-10-25 06:47] LABS: Potassium 4.1 mmol/L (3.5-5.1)
[2022-10-25 07:00] LABS: Albumin 3.7 g/dL (3.4-5.0); BUN/Creatinine Ratio 18.9; Bilirubin, Total 0.8 mg/dL (0.2-1.0); Calcium 8.8 mg/dL (8.5-10.1); Total Protein 6.4 g/dL (6.4-8.2)
[2022-10-25] MEDS ORDERED: SERTRALINE HCL 50 MG TAB PO SCH (07:00)
[2022-10-25 09:00] VITALS: BP 102/69
[2022-10-25] MEDS ORDERED: CLOPIDOGREL BISULFATE 75 MG TAB PO SCH (10:00)
[2022-10-25] MEDS ORDERED: ASPirin-EC 81 mg tab PO SCH (10:00)
[2022-10-25] MEDS ORDERED: NICOTINE 14 MG/24HR TOPICAL PATCH TD SCH (10:00)
[2022-10-25] MEDS: PANTOPRAZOLE 40 MG TAB PO SCH (10:06)
[2022-10-25] MEDS: LEVOTHYROXINE SODIUM 100 MCG TAB PO SCH (10:07)
[2022-10-25 11:19] VITALS: BP 105/63
[2022-10-25] MEDS ORDERED: CARVEDILOL 3.125 MG TAB PO SCH (11:45)
[2022-10-25] MEDS ORDERED: SACUBITRIL-VALSARTAN 24mg/26mg TAB PO SCH (11:45)
[2022-10-25] MEDS: EMPAGLIFLOZIN 10 MG TAB PO SCH (12:22)
[2022-10-25 12:49] VITALS: BP 113/68
[2022-10-25] MEDS ORDERED: BENZ100C19 PO (13:52)
[2022-10-25] MEDS ORDERED: ASPI-543 PO (13:52)
[2022-10-25] MEDS ORDERED: CLOP75TA70 PO (13:52)
[2022-10-25 16:11] VITALS: BP 113/68
== END 2022-10-25 16:56 | disposition home or self-care (01) | DRG 174 ==
LOC: ER 06:22 → TELE 09:25 → TELE-CENTR 19:06
PROVIDERS: ADMIT Registered Nurse; ATTEND Nurse Practitioner
PROC: 4A023N7 Measurement of Cardiac Sampling and Pressure, Left Heart, Percutaneous Approach (ICD-10-PCS; principal; 2022-10-24)
PROC: 027034Z Dilation of Coronary Artery, One Artery with Drug-eluting Intraluminal Device, Percutaneous Approach (ICD-10-PCS; 2022-10-24)
PROC: B2111ZZ Fluoroscopy of Multiple Coronary Arteries using Low Osmolar Contrast (ICD-10-PCS; 2022-10-24)
PROC: B2151ZZ Fluoroscopy of Left Heart using Low Osmolar Contrast (ICD-10-PCS; 2022-10-24)
PROC: B241ZZ3 Ultrasonography of Multiple Coronary Arteries, Intravascular (ICD-10-PCS; 2022-10-24)
DX: I21.4 Non-ST elevation (NSTEMI) myocardial infarction (principal); I13.0 Hypertensive heart and chronic kidney disease with heart failure and stage 1 through stage 4 chronic kidney disease, or unspecified chronic kidney disease; I42.8 Other cardiomyopathies; E78.5 Hyperlipidemia, unspecified; E11.22 Type 2 diabetes mellitus with diabetic chronic kidney disease; E03.9 Hypothyroidism, unspecified; Z20.822 Contact with and (suspected) exposure to COVID-19; E11.65 Type 2 diabetes mellitus with hyperglycemia; I25.10 Atherosclerotic heart disease of native coronary artery without angina pectoris; K21.9 Gastro-esophageal reflux disease without esophagitis; N18.9 Chronic kidney disease, unspecified; Z80.3 Family history of malignant neoplasm of breast; Z82.3 Family history of stroke; Z82.49 Family history of ischemic heart disease and other diseases of the circulatory system; Z82.5 Family history of asthma and other chronic lower respiratory diseases; Z83.3 Family history of diabetes mellitus; Z87.19 Personal history of other diseases of the digestive system; Z88.0 Allergy status to penicillin; Z95.810 Presence of automatic (implantable) cardiac defibrillator; Z72.0 Tobacco use
CPT/HCPCS: 36415; 71045; 80053; 80061; 82962; 83036; 83880; 84443; 84484; 85025; 85379; 85610; 85730; 86850; 86900; 86901; 87426; 92928; 92978; 93005; 93306; 93458; 96365; 96372; 99152; 99153; C1874; C1887; G0378; J1815; J2001; J2250

== ENCOUNTER 2023-02-13 00:22 | Emergency (ER) | payer MEDICAID ==
[~2023-02-13] VITALS: Ht 170.2 cm; Wt 84.1 kg
[~2023-02-13 00:22] MED LIST changes: -ASPI-394 PO; +ASPI-543 PO; +BENZ100C19 PO; +CLOP75TA70 PO; +DAPA1TAB4 PO
[2023-02-13 01:16] LABS: Basophils # (auto) 0.1 10 ^3/uL (0-0.2); Basophils % (auto) 0.7 % (0.0-2.0); Eosinophils # (auto) 0.4 10 ^3/uL (0-0.8); Eosinophils % (auto) 3.1 % (0.0-7.0); Hematocrit 46.9 % (41.0-53.0); Hemoglobin 16.5 g/dL (13.5-17.5); Lymphocytes # (auto) 3.4 10 ^3/uL (0.4-5.4); Lymphocytes % (auto) 25.2 % (10.0-50.0); Mean Corpuscular Hemoglobin 30.6 pg (28.0-32.0); Mean Corpuscular Hgb Conc. 35.1 g/dL (32.0-36.0); Mean Corpuscular Volume 87.1 fL (80.0-100.0); Monocytes # (auto) 0.9 10 ^3/uL (0-1.3); Monocytes % (auto) 6.9 % (0.0-12.0); Neutrophils # (auto) 8.6 10 ^3/uL (1.6-8.6); Neutrophils % (auto) 64.1 % (37.0-80.0); Nucleated Red Blood Cells % 0.1 %; Red Blood Cells 5.38 10^6/uL (4.5-5.90); White Blood Cell 13.4 10^3/uL (4.4-10.8)
[2023-02-13 01:25] LABS: Albumin 3.6 g/dL (3.4-5.0); BUN/Creatinine Ratio 20.2 (10.0-20.0); Magnesium 2.2 mg/dL (1.6-2.6); Potassium 3.7 mmol/L (3.5-5.1)
[2023-02-13 01:28] LABS: Bilirubin, Total 0.3 mg/dL (0.2-1.0); Total Protein 7.2 g/dL (6.4-8.2)
[2023-02-13 04:52] VITALS: BP 103/64
== END 2023-02-13 04:52 | disposition home or self-care (01) ==
LOC: ER 00:22
DX: R07.89 Other chest pain (principal); F41.9 Anxiety disorder, unspecified; J44.9 Chronic obstructive pulmonary disease, unspecified; F32.9 Major depressive disorder, single episode, unspecified; F17.210 Nicotine dependence, cigarettes, uncomplicated; I13.0 Hypertensive heart and chronic kidney disease with heart failure and stage 1 through stage 4 chronic kidney disease, or unspecified chronic kidney disease; N18.9 Chronic kidney disease, unspecified; I50.89 Other heart failure; Z88.0 Allergy status to penicillin; Z88.8 Allergy status to other drugs, medicaments and biological substances; Z98.890 Other specified postprocedural states; Z90.89 Acquired absence of other organs; Z79.82 Long term (current) use of aspirin
CPT/HCPCS: 36415; 71045; 80053; 83735; 83880; 84484; 85025; 93005

== ENCOUNTER 2023-09-11 02:07 | Emergency (ER) | payer MEDICAID ==
[~2023-09-11] VITALS: Ht 170.2 cm; Wt 86.0 kg
[2023-09-11 02:30] LABS: Basophils # (auto) 0.1 10 ^3/uL (0-0.2); Basophils % (auto) 1.2 % (0.0-2.0); Eosinophils # (auto) 0.1 10 ^3/uL (0-0.8); Eosinophils % (auto) 2.2 % (0.0-7.0); Hematocrit 48.3 % (41.0-53.0); Hemoglobin 16.7 g/dL (13.5-17.5); Lymphocytes # (auto) 1.7 10 ^3/uL (0.4-5.4); Lymphocytes % (auto) 28.1 % (10.0-50.0); Mean Corpuscular Hemoglobin 30.8 pg (28.0-32.0); Mean Corpuscular Hgb Conc. 34.6 g/dL (32.0-36.0); Mean Corpuscular Volume 89.1 fL (80.0-100.0); Monocytes # (auto) 0.8 10 ^3/uL (0-1.3); Monocytes % (auto) 13.3 % (0.0-12.0); Neutrophils # (auto) 3.4 10 ^3/uL (1.6-8.6); Neutrophils % (auto) 55.2 % (37.0-80.0); Nucleated Red Blood Cells % 0.5 %; Red Blood Cells 5.43 10^6/uL (4.5-5.90); Red Cell Distribution Width 14.5 % (11.8-14.3); White Blood Cell 6.2 10^3/uL (4.4-10.8)
[2023-09-11] MEDS ORDERED: ALBUTEROL MEDNEB 2.5 mg/3ml NEB NEB ONE (02:30)
[2023-09-11] MEDS ORDERED: IPRATROPIUM BROM 0.5 MG/2.5ML INH SOL NEB ONE (02:30)
[2023-09-11 02:43] LABS: Alanine Aminotransferase 25 U/L (7-40); Albumin 4.5 g/dL (3.2-4.8); Alkaline Phosphatase 112 U/L (46-116); Anion Gap 10 (5-15); BUN/Creatinine Ratio 10.9 (10.0-20.0); Blood Urea Nitrogen 11 mg/dL (9-23); Calcium 8.8 mg/dL (8.7-10.4); Carbon Dioxide 20 mmol/L (20-30); Chloride 106 mmol/L (98-107); Glucose 90 mg/dL (74-106); Potassium 4.2 mmol/L (3.5-5.1); Sodium 136 mmol/L (136-145)
[2023-09-11 02:44] LABS: Bilirubin, Total 0.2 mg/dL (0.2-1.0); Total Protein 6.8 g/dL (5.7-8.2)
[2023-09-11 02:45] LABS: INR 0.93 (0.9-1.15); Partial Thromboplastin Time 29.4 SEC (24.5-34.5); Prothrombin Time 9.8 sec (9.3-11.8)
[2023-09-11 02:47] LABS: Aspartate Aminotransferase 19 U/L (13-40)
[2023-09-11] MEDS ORDERED: DexAMETHasone SOD PHOS 10MG/1ML VIAL INJ IV ONE (06:45)
[2023-09-11] MEDS ORDERED: ASPirin 325 MG TAB PO ONE (06:45)
[2023-09-11 07:10] VITALS: BP 141/81; PULSE 82; RESP 20; O2SAT 98
== END 2023-09-11 09:39 | disposition left against medical advice (07) ==
LOC: ER 02:07
DX: R07.89 Other chest pain (principal); R06.02 Shortness of breath; I25.10 Atherosclerotic heart disease of native coronary artery without angina pectoris; I13.0 Hypertensive heart and chronic kidney disease with heart failure and stage 1 through stage 4 chronic kidney disease, or unspecified chronic kidney disease; N18.9 Chronic kidney disease, unspecified; I50.9 Heart failure, unspecified; J44.9 Chronic obstructive pulmonary disease, unspecified; I25.2 Old myocardial infarction; E03.9 Hypothyroidism, unspecified; F17.210 Nicotine dependence, cigarettes, uncomplicated; Z95.0 Presence of cardiac pacemaker; Z90.89 Acquired absence of other organs; Z79.899 Other long term (current) drug therapy; Z79.82 Long term (current) use of aspirin; Z79.01 Long term (current) use of anticoagulants; Z88.0 Allergy status to penicillin; Z88.8 Allergy status to other drugs, medicaments and biological substances
CPT/HCPCS: 36415; 71045; 80053; 83735; 83880; 84484; 85025; 85610; 85730; 93005; 96374; 99285; J1100; J7644

== ENCOUNTER 2023-10-11 07:44 | Emergency (ER) | payer MEDICAID ==
[~2023-10-11] VITALS: Ht 170.2 cm; Wt 90.5 kg
[2023-10-11] MEDS ORDERED: ASPirin 81 mg TAB PO ONE (08:00)
[2023-10-11 08:19] LABS: Basophils # (auto) 0.1 10 ^3/uL (0-0.2); Basophils % (auto) 1.2 % (0.0-2.0); Eosinophils # (auto) 0.4 10 ^3/uL (0-0.8); Eosinophils % (auto) 3.3 % (0.0-7.0); Hematocrit 47.1 % (41.0-53.0); Hemoglobin 16.1 g/dL (13.5-17.5); Lymphocytes # (auto) 2.3 10 ^3/uL (0.4-5.4); Lymphocytes % (auto) 19.3 % (10.0-50.0); Mean Corpuscular Hgb Conc. 34.1 g/dL (32.0-36.0); Monocytes # (auto) 1.1 10 ^3/uL (0-1.3); Monocytes % (auto) 9.3 % (0.0-12.0); Neutrophils % (auto) 66.9 % (37.0-80.0); Nucleated Red Blood Cells % 0.1 %; Red Blood Cells 5.35 10^6/uL (4.5-5.90); Red Cell Distribution Width 14.7 % (11.8-14.3); White Blood Cell 11.9 10^3/uL (4.4-10.8)
[2023-10-11 08:34] LABS: Alanine Aminotransferase 32 U/L (7-40); Albumin 4.5 g/dL (3.2-4.8); Alkaline Phosphatase 116 U/L (46-116); Anion Gap 7 (5-15); Aspartate Aminotransferase 19 U/L (13-40); BUN/Creatinine Ratio 12.9 (10.0-20.0); Bilirubin, Total 0.6 mg/dL (0.2-1.0); Blood Urea Nitrogen 12 mg/dL (9-23); Calcium 9.4 mg/dL (8.5-10.1); Carbon Dioxide 25 mmol/L (20-30); Chloride 106 mmol/L (98-107); Glucose 81 mg/dL (74-106); Potassium 4.3 mmol/L (3.5-5.1); Sodium 138 mmol/L (136-145); Total Protein 6.6 g/dL (5.7-8.2)
[2023-10-11 08:38] LABS: INR 0.95 (0.9-1.15); Partial Thromboplastin Time 30.3 SEC (24.5-34.5)
[2023-10-11 10:21] VITALS: BP 123/58; PULSE 70; RESP 20; TEMP 98; O2SAT 100
[2023-10-11 10:35] LABS: Urine Bacteria NONE SEEN /hpf (None Seen); Urine Blood TRACE /uL (Negative); Urine Clarity Clear (Clear); Urine Color Yellow (Yellow); Urine Protein, UAD Negative (Negative); Urine Specific Gravity 1.023 (1.001-1.035); Urine WBC 1 /hpf (0 - 3)
[2023-10-11 10:46] LABS: Amphetamine Screen, Urine Neg (NEGATIVE)
[2023-10-11 10:47] LABS: Barbiturate Scree,Urine Neg (NEGATIVE); Benzodiazephine Screen, Urine Neg (NEGATIVE); Cocaine Screen, Urine Neg (NEGATIVE); Opiate Scree,Urine Neg (NEGATIVE); Phencyclidine Screen, Urine Neg (NEGATIVE)
[2023-10-11 10:48] LABS: Cannabinoid Screen, Urine Neg (NEGATIVE)
[2023-10-11 15:18] LABS: Magnesium 2.1 mg/dL (1.6-2.6)
== END 2023-10-11 10:44 | disposition home or self-care (01) ==
LOC: ER 07:44
DX: R07.89 Other chest pain (principal); I13.0 Hypertensive heart and chronic kidney disease with heart failure and stage 1 through stage 4 chronic kidney disease, or unspecified chronic kidney disease; N18.9 Chronic kidney disease, unspecified; I50.9 Heart failure, unspecified; J44.9 Chronic obstructive pulmonary disease, unspecified; F17.210 Nicotine dependence, cigarettes, uncomplicated; Z88.0 Allergy status to penicillin; Z88.6 Allergy status to analgesic agent; Z79.899 Other long term (current) drug therapy
CPT/HCPCS: 36415; 71045; 80053; 80307; 81001; 83735; 83880; 84484; 85025; 85610; 85730; 93005

== ENCOUNTER 2023-11-29 21:59 | Emergency (ER) | payer MEDICAID ==
[~2023-11-29] VITALS: Ht 170.2 cm; Wt 90.0 kg
[2023-11-29 22:26] LABS: Basophils # (auto) 0.1 10 ^3/uL (0-0.2); Basophils % (auto) 1.1 % (0.0-2.0); Eosinophils # (auto) 0.4 10 ^3/uL (0-0.8); Eosinophils % (auto) 4.1 % (0.0-7.0); Hematocrit 49.3 % (41.0-53.0); Hemoglobin 16.8 g/dL (13.5-17.5); Lymphocytes # (auto) 2.7 10 ^3/uL (0.4-5.4); Lymphocytes % (auto) 27.9 % (10.0-50.0); Mean Corpuscular Hemoglobin 30.2 pg (28.0-32.0); Mean Corpuscular Hgb Conc. 34.2 g/dL (32.0-36.0); Mean Corpuscular Volume 88.3 fL (80.0-100.0); Monocytes % (auto) 10.6 % (0.0-12.0); Neutrophils # (auto) 5.5 10 ^3/uL (1.6-8.6); Neutrophils % (auto) 56.3 % (37.0-80.0); Nucleated Red Blood Cells % 0.2 %; Red Blood Cells 5.58 10^6/uL (4.5-5.90); Red Cell Distribution Width 13.9 % (11.8-14.3); White Blood Cell 9.8 10^3/uL (4.4-10.8)
[2023-11-29 22:29] LABS: Chloride 106 mmol/L (98-107); Potassium 3.7 mmol/L (3.5-5.1); Sodium 139 mmol/L (136-145)
[2023-11-29 22:30] LABS: Anion Gap 4 (5-15); Carbon Dioxide 29 mmol/L (20-30)
[2023-11-29 22:31] LABS: Calcium 9.6 mg/dL (8.5-10.1)
[2023-11-29 22:35] LABS: Blood Urea Nitrogen 8 mg/dL (9-23); Glucose 93 mg/dL (74-106)
[2023-11-29 23:53] VITALS: BP 112/75; TEMP 98; O2SAT 97
[2023-11-29 23:55] VITALS: PULSE 75; RESP 18
== END 2023-11-30 00:03 | disposition home or self-care (01) ==
LOC: ER 21:59
DX: R07.89 Other chest pain (principal); R06.00 Dyspnea, unspecified; I13.2 Hypertensive heart and chronic kidney disease with heart failure and with stage 5 chronic kidney disease, or end stage renal disease; N18.6 End stage renal disease; I50.9 Heart failure, unspecified; J44.9 Chronic obstructive pulmonary disease, unspecified; I25.2 Old myocardial infarction; E03.9 Hypothyroidism, unspecified; F17.210 Nicotine dependence, cigarettes, uncomplicated; Z95.0 Presence of cardiac pacemaker; Z90.89 Acquired absence of other organs; Z79.82 Long term (current) use of aspirin; Z79.899 Other long term (current) drug therapy; Z88.0 Allergy status to penicillin; Z88.8 Allergy status to other drugs, medicaments and biological substances
CPT/HCPCS: 36415; 71045; 80048; 84484; 85025; 93005

== ENCOUNTER 2023-11-30 18:57 | Inpatient (IN) | payer MEDICAID ==
[~2023-11-30] VITALS: Ht 170.2 cm; Wt 94.2 kg
[2023-11-30 19:49] LABS: Basophils # (auto) 0.1 10 ^3/uL (0-0.2); Basophils % (auto) 1.2 % (0.0-2.0); Eosinophils # (auto) 0.4 10 ^3/uL (0-0.8); Eosinophils % (auto) 4.3 % (0.0-7.0); Hematocrit 48.7 % (41.0-53.0); Hemoglobin 16.9 g/dL (13.5-17.5); Lymphocytes # (auto) 2.7 10 ^3/uL (0.4-5.4); Lymphocytes % (auto) 28.8 % (10.0-50.0); Mean Corpuscular Hemoglobin 30.3 pg (28.0-32.0); Mean Corpuscular Hgb Conc. 34.7 g/dL (32.0-36.0); Mean Corpuscular Volume 87.4 fL (80.0-100.0); Monocytes # (auto) 0.8 10 ^3/uL (0-1.3); Monocytes % (auto) 8.4 % (0.0-12.0); Neutrophils # (auto) 5.4 10 ^3/uL (1.6-8.6); Neutrophils % (auto) 57.3 % (37.0-80.0); Nucleated Red Blood Cells % 0.2 %; Red Blood Cells 5.57 10^6/uL (4.5-5.90); Red Cell Distribution Width 13.9 % (11.8-14.3); White Blood Cell 9.4 10^3/uL (4.4-10.8)
[2023-11-30 19:53] LABS: Urine Bacteria NONE SEEN /hpf (None Seen); Urine Blood Negative /uL (Negative); Urine Clarity Clear (Clear); Urine Color Colorless (Yellow); Urine Protein, UAD Negative (Negative); Urine Specific Gravity 1.005 (1.001-1.035); Urine Urobilinogen Normal (Negative); Urine WBC 1 /hpf (0 - 3)
[2023-11-30 20:02] LABS: INR 0.93 (0.9-1.15); Partial Thromboplastin Time 28.6 SEC (24.5-34.5); Prothrombin Time 9.8 sec (9.3-11.8)
[2023-11-30 20:04] LABS: Amphetamine Screen, Urine Neg (NEGATIVE); Barbiturate Scree,Urine Neg (NEGATIVE); Benzodiazephine Screen, Urine Neg (NEGATIVE); Opiate Scree,Urine Neg (NEGATIVE)
[2023-11-30 20:05] LABS: Cannabinoid Screen, Urine Neg (NEGATIVE); Phencyclidine Screen, Urine Neg (NEGATIVE)
[2023-11-30 20:06] LABS: Alanine Aminotransferase 14 U/L (7-40); Albumin 4.5 g/dL (3.2-4.8); Alkaline Phosphatase 120 U/L (46-116); Anion Gap 4 (5-15); Aspartate Aminotransferase 18 U/L (13-40); BUN/Creatinine Ratio 7.2 (10.0-20.0); Bilirubin, Total 0.5 mg/dL (0.2-1.0); Blood Urea Nitrogen 8 mg/dL (9-23); Calcium 9.6 mg/dL (8.5-10.1); Carbon Dioxide 28 mmol/L (20-30); Chloride 105 mmol/L (98-107); Glucose 83 mg/dL (74-106); Potassium 3.7 mmol/L (3.5-5.1); Sodium 137 mmol/L (136-145)
[2023-11-30 20:11] LABS: Lipase 55 U/L (12-53)
[2023-11-30 20:36] LABS: Rapid Influenza A Negative (Negative); Rapid Influenza B Negative (Negative)
[2023-11-30 20:37] LABS: COVID19 ANTIGEN SOFIA FIA NEGATIVE (NEGATIVE)
[2023-11-30 21:38] LABS: Cocaine Screen, Urine Neg (NEGATIVE)
[2023-11-30] MEDS ORDERED: ONDANSETRON HCL 4 MG/2 ML VIAL IV PRN (23:00)
[2023-11-30] MEDS ORDERED: MORPHINE SULFATE INJ 2 MG/ml SYRG IV PRN (23:00)
[2023-11-30] MEDS ORDERED: DOCUSATE SOD 100 MG CAP PO PRN (23:00)
[2023-11-30] MEDS ORDERED: NITROGLYCERIN 0.4 MG SL TAB SL PRN (23:00)
[2023-11-30] MEDS ORDERED: ALBUTEROL SULF 2.5 MG/0.5ML(0.5%) NEB SOLN NEB PRN (23:00)
[2023-11-30] MEDS: SODIUM CHLORIDE 0.9% 1,000 ML IV SCH (23:36)
[2023-11-30 23:53] VITALS: BP 132/82; PULSE 78; RESP 18; TEMP 98; O2SAT 97
[2023-12-01] VITALS (10 sets, daily range): BP systolic 109–128; BP diastolic 55–85; PULSE 67–88; RESP 18–19; TEMP 97.5–98; O2SAT 96–100
[2023-12-01] MEDS: ACETAMINOPHEN 325 MG TAB PO PRN (02:44)
[2023-12-01 06:49] LABS: Basophils # (auto) 0.1 10 ^3/uL (0-0.2); Eosinophils # (auto) 0.4 10 ^3/uL (0-0.8); Eosinophils % (auto) 3.9 % (0.0-7.0); Hematocrit 46.3 % (41.0-53.0); Hemoglobin 16.1 g/dL (13.5-17.5); Lymphocytes # (auto) 2.5 10 ^3/uL (0.4-5.4); Lymphocytes % (auto) 26.9 % (10.0-50.0); Mean Corpuscular Hemoglobin 30.2 pg (28.0-32.0); Mean Corpuscular Hgb Conc. 34.9 g/dL (32.0-36.0); Mean Corpuscular Volume 86.6 fL (80.0-100.0); Monocytes # (auto) 0.8 10 ^3/uL (0-1.3); Monocytes % (auto) 8.7 % (0.0-12.0); Neutrophils # (auto) 5.5 10 ^3/uL (1.6-8.6); Neutrophils % (auto) 59.5 % (37.0-80.0); Nucleated Red Blood Cells % 0.2 %; Red Blood Cells 5.34 10^6/uL (4.5-5.90); Red Cell Distribution Width 13.7 % (11.8-14.3); White Blood Cell 9.2 10^3/uL (4.4-10.8)
[2023-12-01] MEDS: LEVOTHYROXINE SODIUM 100 MCG TAB PO SCH (06:51)
[2023-12-01 06:53] LABS: Alanine Aminotransferase 13 U/L (7-40); Albumin 4.4 g/dL (3.2-4.8); Alkaline Phosphatase 106 U/L (46-116); Anion Gap 8 (5-15); Aspartate Aminotransferase 13 U/L (13-40); BUN/Creatinine Ratio 11.8 (10.0-20.0); Bilirubin, Total 0.7 mg/dL (0.2-1.0); Blood Urea Nitrogen 11 mg/dL (9-23); Carbon Dioxide 22 mmol/L (20-30); Chloride 106 mmol/L (98-107); Glucose 92 mg/dL (74-106); Potassium 3.6 mmol/L (3.5-5.1); Sodium 136 mmol/L (136-145)
[2023-12-01 06:54] LABS: Total Protein 6.8 g/dL (5.7-8.2)
[2023-12-01] MEDS: FAMOTIDINE (10MG/ML) 2ML VL IV SCH (10:09)
[2023-12-01] MEDS: CLOPIDOGREL BISULFATE 75 MG TAB PO SCH (10:09)
[2023-12-01] MEDS: ASPirin 81 mg TAB PO SCH (10:09)
[2023-12-01] MEDS: FUROSEMIDE 20 MG/2 ML VIAL IV SCH (10:10)
[2023-12-01] MEDS: PANTOPRAZOLE 40 MG TAB PO ONE (15:45)
[2023-12-01] MEDS: ATORVASTATIN 20 MG TAB PO SCH (21:04)
[2023-12-01] MEDS: SACUBITRIL-VALSARTAN 24mg/26mg TAB PO SCH (21:05)
[2023-12-01] MEDS: METOPROLOL TARTRATE 25 MG TAB PO SCH (21:05)
[2023-12-02] VITALS (8 sets, daily range): BP systolic 105–111; BP diastolic 64–73; PULSE 65–74; RESP 17–22; TEMP 97.7–98.6; O2SAT 94–98
[2023-12-02] MEDS: EMPAGLIFLOZIN 10 MG TAB PO SCH (09:31)
[2023-12-02] MEDS: PANTOPRAZOLE 40 MG TAB PO SCH (09:31)
[2023-12-02] MEDS: MAGNESIUM OXIDE 400 MG TAB PO SCH (09:31)
[2023-12-02] MEDS: SPIRONOLACTONE 25 MG TAB PO SCH (09:32)
[2023-12-02] MEDS: ENOXAPARIN SOD 40 MG/0.4 ML SYRINGE SC SCH (09:32)
[2023-12-03] VITALS (12 sets, daily range): BP systolic 96–136; BP diastolic 53–81; PULSE 58–77; RESP 12–20; TEMP 97.9–98.1; O2SAT 94–98
[2023-12-03] MEDS: LEVOTHYROXINE SODIUM 100 MCG TAB PO SCH (06:01)
[2023-12-03 07:32] LABS: Basophils # (auto) 0.1 10 ^3/uL (0-0.2); Basophils % (auto) 0.6 % (0.0-2.0); Eosinophils # (auto) 0.3 10 ^3/uL (0-0.8); Eosinophils % (auto) 3.8 % (0.0-7.0); Hematocrit 47.8 % (41.0-53.0); Lymphocytes # (auto) 2.2 10 ^3/uL (0.4-5.4); Lymphocytes % (auto) 27.6 % (10.0-50.0); Mean Corpuscular Hemoglobin 29.6 pg (28.0-32.0); Mean Corpuscular Hgb Conc. 33.5 g/dL (32.0-36.0); Mean Corpuscular Volume 88.5 fL (80.0-100.0); Monocytes # (auto) 0.6 10 ^3/uL (0-1.3); Monocytes % (auto) 8.3 % (0.0-12.0); Neutrophils # (auto) 4.7 10 ^3/uL (1.6-8.6); Neutrophils % (auto) 59.7 % (37.0-80.0); Red Cell Distribution Width 13.9 % (11.8-14.3); White Blood Cell 7.9 10^3/uL (4.4-10.8)
[2023-12-03 07:48] LABS: INR 0.98 (0.9-1.15); Partial Thromboplastin Time 29.1 SEC (24.5-34.5); Prothrombin Time 10.3 sec (9.3-11.8)
[2023-12-03 08:06] LABS: Calcium 9.6 mg/dL (8.5-10.1); Chloride 108 mmol/L (98-107); Potassium 3.9 mmol/L (3.5-5.1); Sodium 139 mmol/L (136-145)
[2023-12-03 08:07] LABS: Anion Gap 6 (5-15); Carbon Dioxide 25 mmol/L (20-30)
[2023-12-03 08:12] LABS: BUN/Creatinine Ratio 14.3 (10.0-20.0); Blood Urea Nitrogen 14 mg/dL (9-23); Glucose 90 mg/dL (74-106)
[2023-12-03] MEDS: SPIRONOLACTONE 25 MG TAB PO SCH (10:00)
[2023-12-03] MEDS: LIDOCAINE 2%HCL (LOCAL ANESTH.) INJ 20ML MDV ONE (10:04)
[2023-12-03] MEDS: IODIXANOL 320MG/ML 100ML BTL IV ONE ×2 (10:04→11:20)
[2023-12-03] MEDS: HEPARIN SODIUM (PORCINE) 5000 UNITS/ML 1ML VIAL ONE (10:05)
[2023-12-03] MEDS: ANGIOMAX 250 MG VIAL IV ONE (10:05)
[2023-12-03] MEDS: VERAPAMIL 2.5MG/ML INJ 2ML VIAL IV ONE (10:06)
[2023-12-03] MEDS: SODIUM CHL 0.9% 50 ML ONE (10:06)
[2023-12-03] MEDS: MIDAZOLAM HCL 2MG/2ML 2ml VIAL (1mg/ml) ONE (10:06)
[2023-12-03] MEDS: fentaNYL CITRATE 100 MCG/2 ML VL ONE (10:06)
[2023-12-03] MEDS: CLOPIDOGREL BISULFATE 75 MG TAB ONE (12:10)
[2023-12-03] MEDS: ASPirin 81 mg TAB ONE (12:10)
[2023-12-03] MEDS ORDERED: CARV3.1240 PO (13:08)
[2023-12-03] MEDS ORDERED: PANT40TA57 PO (13:11)
[2023-12-03] MEDS ORDERED: FLUT50SP31 EACHNOSTRI (13:11)
[2023-12-03] MEDS ORDERED: METO-289 PO (13:18)
[2023-12-03] MEDS ORDERED: IPRA0.03 EACHNOSTRI (13:18)
[2023-12-03] MEDS ORDERED: SPIR25TA8 PO (13:18)
[2023-12-03] MEDS: HYDROcodone-ACET 5/325MG TAB PO PRN (14:06)
[2023-12-04 05:00] VITALS: BP 100/57; PULSE 70; RESP 18; TEMP 97.8; O2SAT 94
[2023-12-04 05:37] LABS: Chloride 106 mmol/L (98-107); Potassium 4.1 mmol/L (3.5-5.1); Sodium 135 mmol/L (136-145)
[2023-12-04 05:38] LABS: Anion Gap 4 (5-15); Carbon Dioxide 25 mmol/L (20-30)
[2023-12-04 05:39] LABS: Calcium 9.3 mg/dL (8.5-10.1)
[2023-12-04 05:43] LABS: Glucose 97 mg/dL (74-106)
[2023-12-04 05:44] LABS: BUN/Creatinine Ratio 10.1 (10.0-20.0); Blood Urea Nitrogen 9 mg/dL (9-23)
[2023-12-04] MEDS ORDERED: ALBUTEROL SULF 2.5 MG/0.5ML(0.5%) NEB SOLN NEB PRN (06:30)
[2023-12-04 08:00] VITALS: PULSE 83
[2023-12-04 09:00] VITALS: BP 111/73; PULSE 79; RESP 19; TEMP 97.3; O2SAT 96
[2023-12-04 12:29] VITALS: PULSE 82
[2023-12-04 12:48] VITALS: BP 115/73; PULSE 76; RESP 19; TEMP 97.6; O2SAT 96
== END 2023-12-04 14:27 | disposition home or self-care (01) | DRG 175 ==
LOC: ER 18:57 → TELE-WESTW 23:04 → TELE 23:04 → TELE-WESTW 12-01 05:55
PROVIDERS: ADMIT Nurse Practitioner Family; ATTEND Internal Medicine Geriatric Medicine
PROC: B211YZZ Fluoroscopy of Multiple Coronary Arteries using Other Contrast (ICD-10-PCS; principal; 2023-12-03)
PROC: 02703ZZ Dilation of Coronary Artery, One Artery, Percutaneous Approach (ICD-10-PCS; 2023-12-03)
PROC: 027135Z Dilation of Coronary Artery, Two Arteries with Two Drug-eluting Intraluminal Devices, Percutaneous Approach (ICD-10-PCS; 2023-12-03)
DX: I25.110 Atherosclerotic heart disease of native coronary artery with unstable angina pectoris (principal); J96.10 Chronic respiratory failure, unspecified whether with hypoxia or hypercapnia; I24.9 Acute ischemic heart disease, unspecified; I50.22 Chronic systolic (congestive) heart failure; I12.9 Hypertensive chronic kidney disease with stage 1 through stage 4 chronic kidney disease, or unspecified chronic kidney disease; F32.A Depression, unspecified; J44.9 Chronic obstructive pulmonary disease, unspecified; I25.5 Ischemic cardiomyopathy; F17.210 Nicotine dependence, cigarettes, uncomplicated; F41.9 Anxiety disorder, unspecified; I45.10 Unspecified right bundle-branch block; K21.9 Gastro-esophageal reflux disease without esophagitis; Z20.822 Contact with and (suspected) exposure to COVID-19; I25.2 Old myocardial infarction; Z88.0 Allergy status to penicillin; Z88.5 Allergy status to narcotic agent; Z95.5 Presence of coronary angioplasty implant and graft; Z95.810 Presence of automatic (implantable) cardiac defibrillator
CPT/HCPCS: 36415; 71045; 80048; 80053; 80307; 81001; 83605; 83690; 83735; 83880; 84436; 84443; 84480; 84484; 85025; 85379; 85610; 85730; 86850; 86900; 86901; 87040; 87426; 87804; 93005; 93306; 96360; 99152; G0378; J2250; J3490; Q9967

== ENCOUNTER 2024-02-16 20:38 | Inpatient (IN) | payer MEDICAID ==
[~2024-02-16] VITALS: Ht 170.2 cm; Wt 93.6 kg
[~2024-02-16 20:38] MED LIST changes: -BENZ100C19 PO; -CAR125T PO; -FLUT1SUS; +FLUT50SP31 EACHNOSTRI; +IPRA0.03 EACHNOSTRI; +METO-289 PO; -NITR0.4S29 SL; -OME20T PO; +PANT40TA57 PO; +SPIR25TA8 PO
[2024-02-16 23:23] LABS: Basophils # (auto) 0.1 10 ^3/uL (0-0.2); Basophils % (auto) 1.4 % (0.0-2.0); Eosinophils # (auto) 0.3 10 ^3/uL (0-0.8); Eosinophils % (auto) 3.1 % (0.0-7.0); Hemoglobin 15.6 g/dL (13.5-17.5); Lymphocytes # (auto) 2.9 10 ^3/uL (0.4-5.4); Lymphocytes % (auto) 32.1 % (10.0-50.0); Mean Corpuscular Hemoglobin 29.8 pg (28.0-32.0); Mean Corpuscular Hgb Conc. 35.5 g/dL (32.0-36.0); Mean Corpuscular Volume 84.1 fL (80.0-100.0); Monocytes # (auto) 0.7 10 ^3/uL (0-1.3); Monocytes % (auto) 7.7 % (0.0-12.0); Neutrophils # (auto) 5.1 10 ^3/uL (1.6-8.6); Neutrophils % (auto) 55.7 % (37.0-80.0); Nucleated Red Blood Cells % 2.7 %; Red Blood Cells 5.24 10^6/uL (4.5-5.90); Red Cell Distribution Width 13.7 % (11.8-14.3); White Blood Cell 9.2 10^3/uL (4.4-10.8)
[2024-02-16 23:41] LABS: INR 0.92 (0.9-1.15); Partial Thromboplastin Time 26.9 SEC (24.5-34.5); Prothrombin Time 9.8 sec (9.3-11.8)
[2024-02-16] MEDS: HYDROcodone-ACET 5/325MG TAB PO ONE (23:53)
[2024-02-17] VITALS (7 sets, daily range): BP systolic 110–131; BP diastolic 77–80; PULSE 60–85; RESP 17–20; TEMP 97.8–98; O2SAT 93–99
[2024-02-17 01:12] LABS: Urine Bacteria FEW /hpf (None Seen); Urine Blood 1+ /uL (Negative); Urine Clarity Clear (Clear); Urine Color Light-Yellow (Yellow); Urine Protein, UAD Negative (Negative); Urine Specific Gravity 1.025 (1.001-1.035); Urine Sperm PRESENT /hpf (None Seen); Urine Urobilinogen Normal (Negative); Urine WBC 8 /hpf (0 - 3)
[2024-02-17] MEDS ORDERED: ACETAMINOPHEN 325 MG TAB PO PRN (01:30)
[2024-02-17] MEDS ORDERED: ONDANSETRON HCL 4 MG/2 ML VIAL IV PRN (01:30)
[2024-02-17] MEDS ORDERED: DOCUSATE SOD 100 MG CAP PO PRN (01:30)
[2024-02-17] MEDS ORDERED: ALBUTEROL SULF 2.5 MG/0.5ML(0.5%) NEB SOLN NEB PRN (01:45)
[2024-02-17] MEDS ORDERED: MORPHINE SULFATE INJ 2 MG/ml SYRG IV PRN (03:30)
[2024-02-17] MEDS ORDERED: NITROGLYCERIN 0.4 MG SL TAB SL PRN (03:30)
[2024-02-17] MEDS ORDERED: MECLIZINE HCL 25 MG TAB PO PRN (03:45)
[2024-02-17 06:18] LABS: Basophils # (auto) 0.1 10 ^3/uL (0-0.2); Eosinophils # (auto) 0.3 10 ^3/uL (0-0.8); Eosinophils % (auto) 3.1 % (0.0-7.0); Hematocrit 45.1 % (41.0-53.0); Hemoglobin 15.6 g/dL (13.5-17.5); Lymphocytes # (auto) 3.1 10 ^3/uL (0.4-5.4); Lymphocytes % (auto) 36.3 % (10.0-50.0); Mean Corpuscular Hemoglobin 29.2 pg (28.0-32.0); Mean Corpuscular Hgb Conc. 34.5 g/dL (32.0-36.0); Mean Corpuscular Volume 84.4 fL (80.0-100.0); Monocytes # (auto) 0.7 10 ^3/uL (0-1.3); Monocytes % (auto) 7.7 % (0.0-12.0); Neutrophils # (auto) 4.5 10 ^3/uL (1.6-8.6); Neutrophils % (auto) 51.9 % (37.0-80.0); Nucleated Red Blood Cells % 0.2 %; Red Blood Cells 5.34 10^6/uL (4.5-5.90); White Blood Cell 8.7 10^3/uL (4.4-10.8)
[2024-02-17] MEDS: SODIUM CHLOR 0.9% PF (SALINE LOCK) 10ML VIAL/SYR IV SCH (06:22)
[2024-02-17 06:47] LABS: Alanine Aminotransferase 19 U/L (7-40); Albumin 4.7 g/dL (3.2-4.8); Alkaline Phosphatase 139 U/L (46-116); Anion Gap 7 (5-15); Aspartate Aminotransferase 16 U/L (13-40); BUN/Creatinine Ratio 12.8 (10.0-20.0); Bilirubin, Total 0.9 mg/dL (0.2-1.0); Blood Urea Nitrogen 16 mg/dL (9-23); Carbon Dioxide 28 mmol/L (20-30); Chloride 103 mmol/L (98-107); Glucose 91 mg/dL (74-106); Potassium 4.3 mmol/L (3.5-5.1); Sodium 138 mmol/L (136-145); Total Protein 7.2 g/dL (5.7-8.2)
[2024-02-17] MEDS: LEVOTHYROXINE SODIUM 100 MCG TAB PO SCH (08:12)
[2024-02-17] MEDS: ASPirin 81 mg TAB PO SCH (10:00)
[2024-02-17] MEDS: CLOPIDOGREL BISULFATE 75 MG TAB PO SCH (10:00)
[2024-02-17] MEDS: methylPREDNISolone SOD SUCC 40 MG/ML VL IV SCH (11:21)
[2024-02-17] MEDS: FAMOTIDINE (10MG/ML) 2ML VL IV SCH (11:21)
[2024-02-17] MEDS ORDERED: METO25TA93 PO (18:01)
[2024-02-17] MEDS ORDERED: CHOL20TA PO (18:01)
[2024-02-17] MEDS ORDERED: FAMO-12 PO (18:02)
[2024-02-17] MEDS ORDERED: NITR0.4S29 SL (18:03)
[2024-02-17] MEDS: HYDROcodone-ACET 5/325MG TAB PO PRN (21:40)
[2024-02-17] MEDS: ATORVASTATIN 20 MG TAB PO SCH (21:41)
[2024-02-18] VITALS (10 sets, daily range): BP systolic 107–147; BP diastolic 72–92; PULSE 18–95; RESP 17–18; TEMP 97.9–98.3; O2SAT 91–97
[2024-02-18] MEDS ORDERED: MAGN400T40 PO (00:58)
[2024-02-18 06:42] LABS: Basophils # (auto) 0.1 10 ^3/uL (0-0.2); Basophils % (auto) 0.4 % (0.0-2.0); Eosinophils # (auto) 0 10 ^3/uL (0-0.8); Hematocrit 48.4 % (41.0-53.0); Hemoglobin 16.4 g/dL (13.5-17.5); Lymphocytes # (auto) 1.2 10 ^3/uL (0.4-5.4); Lymphocytes % (auto) 9.9 % (10.0-50.0); Mean Corpuscular Hemoglobin 28.8 pg (28.0-32.0); Mean Corpuscular Volume 84.9 fL (80.0-100.0); Monocytes # (auto) 0.2 10 ^3/uL (0-1.3); Monocytes % (auto) 1.9 % (0.0-12.0); Neutrophils # (auto) 10.9 10 ^3/uL (1.6-8.6); Neutrophils % (auto) 87.8 % (37.0-80.0); Nucleated Red Blood Cells % 0.6 %; Red Blood Cells 5.71 10^6/uL (4.5-5.90); Red Cell Distribution Width 13.8 % (11.8-14.3); White Blood Cell 12.4 10^3/uL (4.4-10.8)
[2024-02-18 06:56] LABS: Alanine Aminotransferase 17 U/L (7-40); Albumin 4.8 g/dL (3.2-4.8); Alkaline Phosphatase 141 U/L (46-116); Anion Gap 11 (5-15); Aspartate Aminotransferase 13 U/L (13-40); BUN/Creatinine Ratio 11.8 (10.0-20.0); Bilirubin, Total 0.9 mg/dL (0.2-1.0); Blood Urea Nitrogen 13 mg/dL (9-23); Calcium 9.9 mg/dL (8.7-10.4); Carbon Dioxide 20 mmol/L (20-30); Chloride 106 mmol/L (98-107); Glucose 124 mg/dL (74-106); Potassium 4.3 mmol/L (3.5-5.1); Sodium 137 mmol/L (136-145); Total Protein 7.8 g/dL (5.7-8.2)
[2024-02-19] VITALS (8 sets, daily range): BP systolic 106–126; BP diastolic 69–73; PULSE 69–82; RESP 18; TEMP 97.6–98.3; O2SAT 93–97
[2024-02-19] MEDS: PANTOPRAZOLE 40 MG TAB PO ONE (22:30)
[2024-02-19] MEDS: SACUBITRIL-VALSARTAN 24mg/26mg TAB PO SCH (22:30)
[2024-02-19] MEDS: METOPROLOL TARTRATE 25 MG TAB PO SCH (22:35)
[2024-02-19 23:19] LABS: Erythrocyte Sedimentation Rate 2 mm/hr (0-20)
[2024-02-20] VITALS (7 sets, daily range): BP systolic 109–127; BP diastolic 65–85; PULSE 70–81; RESP 16–19; TEMP 97.5–98; O2SAT 92–96
[2024-02-20 06:59] LABS: Anion Gap 8 (5-15); Carbon Dioxide 26 mmol/L (20-30); Chloride 106 mmol/L (98-107); Potassium 3.8 mmol/L (3.5-5.1); Sodium 140 mmol/L (136-145)
[2024-02-20 07:01] LABS: Calcium 9.5 mg/dL (8.5-10.1)
[2024-02-20 07:05] LABS: BUN/Creatinine Ratio 15.8 (10.0-20.0); Blood Urea Nitrogen 16 mg/dL (9-23); Glucose 98 mg/dL (74-106)
[2024-02-20 07:37] LABS: Basophils # (auto) 0.1 10 ^3/uL (0-0.2); Basophils % (auto) 0.6 % (0.0-2.0); Eosinophils # (auto) 0.1 10 ^3/uL (0-0.8); Eosinophils % (auto) 0.6 % (0.0-7.0); Hematocrit 45.3 % (41.0-53.0); Hemoglobin 15.6 g/dL (13.5-17.5); Lymphocytes # (auto) 3.4 10 ^3/uL (0.4-5.4); Lymphocytes % (auto) 37.7 % (10.0-50.0); Mean Corpuscular Hemoglobin 29.5 pg (28.0-32.0); Mean Corpuscular Hgb Conc. 34.5 g/dL (32.0-36.0); Mean Corpuscular Volume 85.6 fL (80.0-100.0); Monocytes # (auto) 0.7 10 ^3/uL (0-1.3); Monocytes % (auto) 7.5 % (0.0-12.0); Neutrophils # (auto) 4.9 10 ^3/uL (1.6-8.6); Neutrophils % (auto) 53.6 % (37.0-80.0); Nucleated Red Blood Cells % 0.1 %; Red Blood Cells 5.29 10^6/uL (4.5-5.90); White Blood Cell 9.1 10^3/uL (4.4-10.8)
[2024-02-20] MEDS ORDERED: PRED20TA2 PO (10:05)
[2024-02-20] MEDS: DexAMETHasone SOD PHOS 10MG/1ML VIAL INJ IV SCH (10:20)
[2024-02-20] MEDS: PANTOPRAZOLE 40 MG TAB PO SCH (10:21)
[2024-02-20] MEDS: EMPAGLIFLOZIN 10 MG TAB PO SCH (10:21)
[2024-02-20] MEDS: FUROSEMIDE 20 MG/2 ML VIAL IV SCH (10:21)
== END 2024-02-20 13:00 | disposition home or self-care (01) | DRG 140 ==
LOC: ER 20:38 → TELE 02-17 03:20 → TELE-WESTW 02-17 17:01
PROVIDERS: ADMIT Family Medicine; ATTEND Family Medicine
DX: J44.1 Chronic obstructive pulmonary disease with (acute) exacerbation (principal); J96.20 Acute and chronic respiratory failure, unspecified whether with hypoxia or hypercapnia; I50.23 Acute on chronic systolic (congestive) heart failure; I13.0 Hypertensive heart and chronic kidney disease with heart failure and stage 1 through stage 4 chronic kidney disease, or unspecified chronic kidney disease; I67.2 Cerebral atherosclerosis; I65.23 Occlusion and stenosis of bilateral carotid arteries; G44.1 Vascular headache, not elsewhere classified; K21.9 Gastro-esophageal reflux disease without esophagitis; I25.10 Atherosclerotic heart disease of native coronary artery without angina pectoris; F32.A Depression, unspecified; F03.93 Unspecified dementia, unspecified severity, with mood disturbance; N18.9 Chronic kidney disease, unspecified; E03.9 Hypothyroidism, unspecified; E78.00 Pure hypercholesterolemia, unspecified; H53.8 Other visual disturbances; E66.9 Obesity, unspecified; R26.81 Unsteadiness on feet; H53.2 Diplopia; I45.10 Unspecified right bundle-branch block; I25.2 Old myocardial infarction; Z88.0 Allergy status to penicillin; Z95.5 Presence of coronary angioplasty implant and graft; Z68.32 Body mass index [BMI] 32.0-32.9, adult; Z95.810 Presence of automatic (implantable) cardiac defibrillator; Z82.49 Family history of ischemic heart disease and other diseases of the circulatory system; Z82.3 Family history of stroke; Z80.3 Family history of malignant neoplasm of breast; Z82.5 Family history of asthma and other chronic lower respiratory diseases; Z83.3 Family history of diabetes mellitus; Z87.891 Personal history of nicotine dependence
CPT/HCPCS: 36415; 70450; 71045; 80048; 80053; 81001; 83880; 84484; 85025; 85610; 85652; 85730; 86141; 93005; 97163; G0378; J1100; J3490

== ENCOUNTER → 2024-04-28 | Outpatient (CLI) | payer MEDICAID ==
[~2024-04-28] VITALS: Ht 170.2 cm; Wt 92.1 kg
[~2024-04-28] MED LIST changes: +CHOL20TA PO; +FAMO-12 PO; +MAGN400T40 PO; +METO25TA93 PO; +NITR0.4S29 SL; +PRED20TA2 PO
[2024-04-28] MEDS: ATROPINE SULF 0.5 MG/5ML SYR ONE (08:01)
[2024-04-28] MEDS: METOPROLOL TARTRATE 1MG/1ML-5ML VIAL IV ONE (08:01)
[2024-04-28 08:40] VITALS: BP 137/71
[2024-04-28] MEDS: DOBUTamine 1000MCG/ML 250 ML IV ONE (08:40)
[2024-04-28] MEDS: DOBUTamine 1000MCG/ML 100 ML IV ONE (08:40)
== END | disposition home or self-care (01) ==
LOC: XYW 07:52
PROVIDERS: ATTEND Internal Medicine
DX: I25.118 Atherosclerotic heart disease of native coronary artery with other forms of angina pectoris (principal); R07.9 Chest pain, unspecified
CPT/HCPCS: 93017; 93350; J1250; J0461

== ENCOUNTER → 2024-04-30 | Outpatient (CLI) | payer MEDICAID | END | disposition home or self-care (01) | LOC: XYW 09:22 | PROVIDERS: ATTEND Student in an Organized Health Care Education/Training Program | DX: R51.9 Headache, unspecified (principal) | CPT/HCPCS: 93886 ==

== ENCOUNTER 2024-05-28 13:02 | Inpatient (IN) | payer MEDICAID ==
[~2024-05-28] VITALS: Ht 170.2 cm; Wt 92.0 kg
[2024-05-28 13:18] VITALS: RESP 15; O2SAT 98
[2024-05-28 13:28] LABS: Basophils # (auto) 0.1 10 ^3/uL (0-0.2); Basophils % (auto) 0.8 % (0.0-2.0); Eosinophils # (auto) 0.2 10 ^3/uL (0-0.8); Eosinophils % (auto) 3.1 % (0.0-7.0); Hematocrit 49.7 % (41.0-53.0); Hemoglobin 17.2 g/dL (13.5-17.5); Lymphocytes # (auto) 1.8 10 ^3/uL (0.4-5.4); Lymphocytes % (auto) 24.6 % (10.0-50.0); Mean Corpuscular Hemoglobin 29.5 pg (28.0-32.0); Mean Corpuscular Hgb Conc. 34.5 g/dL (32.0-36.0); Mean Corpuscular Volume 85.4 fL (80.0-100.0); Monocytes # (auto) 0.5 10 ^3/uL (0-1.3); Monocytes % (auto) 7.4 % (0.0-12.0); Neutrophils # (auto) 4.7 10 ^3/uL (1.6-8.6); Neutrophils % (auto) 64.1 % (37.0-80.0); Nucleated Red Blood Cells % 0.1 %; Platelet Count (auto) 225 10^3/uL (140-450); Red Blood Cells 5.82 10^6/uL (4.5-5.90); White Blood Cell 7.3 10^3/uL (4.4-10.8)
[2024-05-28 13:48] LABS: Alanine Aminotransferase 27 U/L (7-40); Alkaline Phosphatase 151 U/L (46-116); Anion Gap 6 (5-15); Aspartate Aminotransferase 14 U/L (13-40); BUN/Creatinine Ratio 7.2 (10.0-20.0); Bilirubin, Total 1.2 mg/dL (0.2-1.0); Blood Urea Nitrogen 9 mg/dL (9-23); Calcium 10.2 mg/dL (8.7-10.4); Carbon Dioxide 29 mmol/L (20-30); Chloride 103 mmol/L (98-107); Glucose 126 mg/dL (74-106); Sodium 138 mmol/L (136-145); Total Protein 7.6 g/dL (5.7-8.2)
[2024-05-28] MEDS ORDERED: MORPHINE SULFATE INJ 2 MG/ml SYRG IV PRN (15:45)
[2024-05-28] MEDS ORDERED: DOCUSATE SOD 100 MG CAP PO PRN (15:45)
[2024-05-28] MEDS ORDERED: ACETAMINOPHEN 325 MG TAB PO PRN (15:45)
[2024-05-28] MEDS ORDERED: HYDROcodone-ACET 5/325MG TAB PO PRN (15:45)
[2024-05-28] MEDS ORDERED: NITROGLYCERIN 0.4 MG SL TAB SL PRN (15:45)
[2024-05-28] MEDS ORDERED: ONDANSETRON HCL 4 MG/2 ML VIAL IV PRN (15:45)
[2024-05-28 17:50] LABS: Triglycerides 250 mg/dL (< 150)
[2024-05-28 17:51] LABS: LDL Cholesterol 72 mg/dL (< 100)
[2024-05-28 17:52] LABS: Cholesterol 137 mg/dL (< 200); HDL Cholesterol 34 mg/dL (40-59)
[2024-05-28] MEDS: SODIUM CHLOR 0.9% PF (SALINE LOCK) 10ML VIAL/SYR IV SCH (22:15)
[2024-05-28] MEDS: SACUBITRIL-VALSARTAN 24mg/26mg TAB PO SCH (22:18)
[2024-05-28 23:22] VITALS: BP 149/89; PULSE 66; RESP 18; TEMP 97.7; O2SAT 95
[2024-05-28 23:31] VITALS: BP 129/74; PULSE 66; RESP 18; TEMP 97.7; O2SAT 95
[2024-05-29] VITALS (8 sets, daily range): BP systolic 101–129; BP diastolic 61–74; PULSE 61–117; RESP 14–18; TEMP 97.4–98.6; O2SAT 93–96
[2024-05-29] MEDS: LEVOTHYROXINE SODIUM 100 MCG TAB PO SCH (06:03)
[2024-05-29] MEDS: FUROSEMIDE 20 MG TAB PO SCH (06:03)
[2024-05-29] MEDS: FAMOTIDINE 20 MG TAB PO SCH (10:00)
[2024-05-29] MEDS: SPIRONOLACTONE 25 MG TAB PO SCH (10:00)
[2024-05-29] MEDS: METOPROLOL SUCCINATE XL 50 MG TAB PO SCH (10:00)
[2024-05-29] MEDS: CHOLECALCIFEROL (VITD3) 1,000UNIT=25mCg TAB PO SCH (10:07)
[2024-05-29] MEDS: SERTRALINE HCL 50 MG TAB PO SCH (10:08)
[2024-05-29] MEDS: PANTOPRAZOLE 40 MG TAB PO SCH (10:08)
[2024-05-29] MEDS: ASPirin-EC 81 mg tab PO SCH (10:08)
[2024-05-29] MEDS: CLOPIDOGREL BISULFATE 75 MG TAB PO SCH (10:09)
[2024-05-29] MEDS: ENOXAPARIN SOD 40 MG/0.4 ML SYRINGE SC SCH (10:10)
[2024-05-29] MEDS ORDERED: AMIO200T33 PO (12:31)
[2024-05-29] MEDS ORDERED: FAMO40TA7 PO (14:22)
[2024-05-29] MEDS ORDERED: LEVO100T8 PO (14:22)
[2024-05-29] MEDS ORDERED: MEMA1TAB3 PO (14:29)
[2024-05-29] MEDS ORDERED: UBRO100T2 PO (14:29)
[2024-05-29] MEDS: AMIODARONE HCL 200 MG TAB PO SCH (22:06)
[2024-05-29] MEDS: SACUBITRIL-VALSARTAN 24mg/26mg TAB PO SCH (22:06)
[2024-05-29] MEDS: ATORVASTATIN 20 MG TAB PO SCH (23:27)
[2024-05-30] VITALS (7 sets, daily range): BP systolic 100–111; BP diastolic 56–79; PULSE 67–80; RESP 17–20; TEMP 97.9–98.1; O2SAT 95–98
[2024-05-30] MEDS: METOPROLOL SUCCINATE XL 50 MG TAB PO SCH (09:42)
== END 2024-05-30 18:17 | disposition home or self-care (01) | DRG 196 ==
LOC: ER 13:02 → TELE 15:44 → TELE-WESTW 23:05
PROVIDERS: ADMIT Internal Medicine; ATTEND Internal Medicine
DX: I49.01 Ventricular fibrillation (principal); I42.9 Cardiomyopathy, unspecified; I50.9 Heart failure, unspecified; I11.0 Hypertensive heart disease with heart failure; R07.89 Other chest pain; I25.10 Atherosclerotic heart disease of native coronary artery without angina pectoris; E78.5 Hyperlipidemia, unspecified; F17.210 Nicotine dependence, cigarettes, uncomplicated; F32.A Depression, unspecified; J43.9 Emphysema, unspecified; I25.2 Old myocardial infarction; Z80.3 Family history of malignant neoplasm of breast; Z98.61 Coronary angioplasty status; Z83.3 Family history of diabetes mellitus; Z82.5 Family history of asthma and other chronic lower respiratory diseases; Z82.49 Family history of ischemic heart disease and other diseases of the circulatory system; Z82.3 Family history of stroke; Z88.0 Allergy status to penicillin; Z95.0 Presence of cardiac pacemaker
CPT/HCPCS: 36415; 71046; 76705; 80053; 80061; 83036; 84439; 84443; 84484; 85025; 93005; G0378

== ENCOUNTER 2024-07-26 21:14 | Inpatient (IN) | payer MEDICAID ==
[~2024-07-26] VITALS: Ht 170.2 cm; Wt 92.5 kg
[~2024-07-26 21:14] MED LIST changes: -ALBU18 IN; +AMIO200T33 PO; -CHOL20TA PO; -FAMO-12 PO; +FAMO40TA7 PO; +FLUT50SP EACHNOSTRI; -HYDR-4833 PO; +MEMA1TAB3 PO; -METO25TA93 PO; -PRED20TA2 PO; +UBRO100T2 PO
[2024-07-26 21:37] LABS: Basophils # (auto) 0.1 10 ^3/uL (0-0.2); Basophils % (auto) 1.2 % (0.0-2.0); Eosinophils # (auto) 0.3 10 ^3/uL (0-0.8); Eosinophils % (auto) 3.5 % (0.0-7.0); Hematocrit 45.1 % (41.0-53.0); Hemoglobin 15.9 g/dL (13.5-17.5); Lymphocytes # (auto) 2.4 10 ^3/uL (0.4-5.4); Lymphocytes % (auto) 26.8 % (10.0-50.0); Mean Corpuscular Hgb Conc. 35.2 g/dL (32.0-36.0); Mean Corpuscular Volume 85.3 fL (80.0-100.0); Monocytes # (auto) 0.7 10 ^3/uL (0-1.3); Monocytes % (auto) 8.2 % (0.0-12.0); Neutrophils # (auto) 5.4 10 ^3/uL (1.6-8.6); Neutrophils % (auto) 60.3 % (37.0-80.0); Nucleated Red Blood Cells % 0.1 %; Platelet Count (auto) 196 10^3/uL (140-450); Red Blood Cells 5.29 10^6/uL (4.5-5.90); Red Cell Distribution Width 14.8 % (11.8-14.3); White Blood Cell 8.9 10^3/uL (4.4-10.8)
[2024-07-26] MEDS: ASPirin 81 mg TAB PO ONE (21:38)
[2024-07-26 21:45] VITALS: PULSE 68; RESP 12; O2SAT 98
[2024-07-26 21:50] LABS: Alanine Aminotransferase 24 U/L (7-40); Albumin 4.6 g/dL (3.2-4.8); Alkaline Phosphatase 145 U/L (46-116); Anion Gap 10 (5-15); Aspartate Aminotransferase 17 U/L (13-40); BUN/Creatinine Ratio 7.6 (10.0-20.0); Blood Urea Nitrogen 9 mg/dL (9-23); Calcium 9.7 mg/dL (8.7-10.4); Carbon Dioxide 21 mmol/L (20-31); Chloride 109 mmol/L (98-107); Glucose 125 mg/dL (74-106); Potassium 3.6 mmol/L (3.5-5.1); Sodium 140 mmol/L (136-145)
[2024-07-26 21:51] LABS: Bilirubin, Total 0.8 mg/dL (0.2-1.0)
[2024-07-26 22:26] LABS: Urine WBC None Seen /hpf (0 - 3)
[2024-07-26 22:48] LABS: Urine Bacteria FEW /hpf (None Seen); Urine Blood TRACE /uL (Negative); Urine Clarity Clear (Clear); Urine Color Yellow (Yellow); Urine Mucus FEW (None Seen); Urine Protein, UAD Negative (Negative); Urine Specific Gravity 1.036 (1.001-1.035); Urine Urobilinogen Normal (Negative)
[2024-07-27] MEDS ORDERED: hydrALAZINE HCL 20 MG/ML VL IV PRN (03:00)
[2024-07-27] MEDS ORDERED: HYDROcodone-ACET 5/325MG TAB PO PRN (03:00)
[2024-07-27] MEDS ORDERED: DOCUSATE SOD 100 MG CAP PO PRN (03:00)
[2024-07-27] MEDS ORDERED: ONDANSETRON HCL 4 MG/2 ML VIAL IV PRN (03:00)
[2024-07-27] MEDS ORDERED: ACETAMINOPHEN 325 MG TAB PO PRN (03:00)
[2024-07-27 04:20] LABS: Basophils # (auto) 0 10 ^3/uL (0-0.2); Basophils % (auto) 0.7 % (0.0-2.0); Eosinophils # (auto) 0.2 10 ^3/uL (0-0.8); Eosinophils % (auto) 3.3 % (0.0-7.0); Hematocrit 43.6 % (41.0-53.0); Hemoglobin 15.1 g/dL (13.5-17.5); Lymphocytes # (auto) 2.1 10 ^3/uL (0.4-5.4); Lymphocytes % (auto) 32.5 % (10.0-50.0); Mean Corpuscular Hemoglobin 29.3 pg (28.0-32.0); Mean Corpuscular Hgb Conc. 34.7 g/dL (32.0-36.0); Mean Corpuscular Volume 84.4 fL (80.0-100.0); Monocytes # (auto) 0.6 10 ^3/uL (0-1.3); Monocytes % (auto) 8.5 % (0.0-12.0); Neutrophils # (auto) 3.6 10 ^3/uL (1.6-8.6); Nucleated Red Blood Cells % 0.1 %; Platelet Count (auto) 179 10^3/uL (140-450); Red Blood Cells 5.16 10^6/uL (4.5-5.90); Red Cell Distribution Width 14.7 % (11.8-14.3); White Blood Cell 6.5 10^3/uL (4.4-10.8)
[2024-07-27 04:31] LABS: Alanine Aminotransferase 21 U/L (7-40); Albumin 4.4 g/dL (3.2-4.8); Alkaline Phosphatase 135 U/L (46-116); Anion Gap 9 (5-15); Aspartate Aminotransferase 14 U/L (13-40); BUN/Creatinine Ratio 11.6 (10.0-20.0); Blood Urea Nitrogen 13 mg/dL (9-23); Calcium 9.5 mg/dL (8.7-10.4); Carbon Dioxide 25 mmol/L (20-31); Chloride 107 mmol/L (98-107); Glucose 96 mg/dL (74-106); Potassium 3.9 mmol/L (3.5-5.1); Sodium 141 mmol/L (136-145)
[2024-07-27 04:32] LABS: Bilirubin, Total 0.7 mg/dL (0.2-1.0); Total Protein 6.7 g/dL (5.7-8.2)
[2024-07-27] MEDS ORDERED: MORPHINE SULFATE INJ 2 MG/ml SYRG IV PRN (05:45)
[2024-07-27] MEDS ORDERED: NITROGLYCERIN 0.4 MG SL TAB SL PRN (05:45)
[2024-07-27] MEDS: SODIUM CHLOR 0.9% PF (SALINE LOCK) 10ML VIAL/SYR IV SCH (06:08)
[2024-07-27] MEDS: LEVOTHYROXINE SODIUM 100 MCG TAB PO SCH (06:08)
[2024-07-27 08:00] VITALS: PULSE 62; RESP 12; O2SAT 96
[2024-07-27] MEDS: ASPirin 81 mg TAB PO SCH (09:57)
[2024-07-27] MEDS: FAMOTIDINE (10MG/ML) 2ML VL IV SCH (09:57)
[2024-07-27] MEDS ORDERED: SACU1TAB PO (11:40)
[2024-07-27] MEDS ORDERED: LEVO125T7 PO (11:40)
[2024-07-27] MEDS ORDERED: CHOL20003 PO (11:40)
[2024-07-27] MEDS ORDERED: SOTA80TA62 PO (11:40)
[2024-07-27 11:51] LABS: Magnesium 2.1 mg/dL (1.6-2.6)
[2024-07-27 13:33] LABS: Amphetamine Screen, Urine Neg (NEGATIVE); Barbiturate Scree,Urine Neg (NEGATIVE); Benzodiazephine Screen, Urine Neg (NEGATIVE); Cocaine Screen, Urine Neg (NEGATIVE); Opiate Scree,Urine Neg (NEGATIVE); Phencyclidine Screen, Urine Neg (NEGATIVE)
[2024-07-27 13:34] LABS: Cannabinoid Screen, Urine Neg (NEGATIVE)
[2024-07-27] MEDS: CLOPIDOGREL BISULFATE 75 MG TAB PO ONE (14:52)
[2024-07-27] MEDS: SPIRONOLACTONE 25 MG TAB PO ONE (15:00)
[2024-07-27] MEDS ORDERED: ASPirin 81 mg TAB PO ONE (15:00)
[2024-07-27] MEDS ORDERED: METOPROLOL SUCCINATE XL 50 MG TAB PO ONE (15:00)
[2024-07-27] MEDS ORDERED: CLOPIDOGREL BISULFATE 75 MG TAB PO ONE (15:00)
[2024-07-27] MEDS: SOTALOL HCL 80 MG TAB PO ONE (15:00)
[2024-07-27] MEDS: EMPAGLIFLOZIN 10 MG TAB PO ONE (15:00)
[2024-07-27] MEDS: MEMANTINE HCL 5 MG TAB PO ONE (15:00)
[2024-07-27] MEDS ORDERED: ALBUTEROL SULF 2.5 MG/0.5ML(0.5%) NEB SOLN NEB PRN (15:30)
[2024-07-27] MEDS ORDERED: IPRATROPIUM BROM 0.5 MG/2.5ML INH SOL NEB PRN (15:30)
[2024-07-27] MEDS: ATORVASTATIN 20 MG TAB PO ONE (15:46)
[2024-07-27] MEDS: LEVOTHYROXINE SODIUM 100 MCG TAB PO ONE (16:09)
[2024-07-27] MEDS: FUROSEMIDE 20 MG TAB PO ONE (16:10)
[2024-07-27] MEDS: SERTRALINE HCL 50 MG TAB PO ONE (16:10)
[2024-07-27 17:20] VITALS: BP 110/62; PULSE 60; RESP 18; TEMP 97.4; O2SAT 96
[2024-07-27 20:00] VITALS: PULSE 62
[2024-07-27 21:00] VITALS: BP 108/72; PULSE 60; RESP 20; TEMP 97.5; O2SAT 96; O2SAT 97
[2024-07-27 21:22] VITALS: BP 110/62; PULSE 60; RESP 18; TEMP 97.4; O2SAT 96
[2024-07-27] MEDS: SOTALOL HCL 80 MG TAB PO SCH (21:53)
[2024-07-27] MEDS: SACUBITRIL-VALSARTAN 24mg/26mg TAB PO SCH (21:53)
[2024-07-27] MEDS: MEMANTINE HCL 5 MG TAB PO SCH (21:54)
[2024-07-27] MEDS ORDERED: ATORVASTATIN 20 MG TAB PO SCH (22:00)
[2024-07-28] VITALS (8 sets, daily range): BP systolic 98–118; BP diastolic 58–70; PULSE 59–92; RESP 18–20; TEMP 36.4; O2SAT 95–100
[2024-07-28] MEDS: LEVOTHYROXINE SODIUM 100 MCG TAB PO SCH (05:55)
[2024-07-28 06:00] LABS: Basophils # (auto) 0.1 10 ^3/uL (0-0.2); Basophils % (auto) 0.8 % (0.0-2.0); Eosinophils # (auto) 0.2 10 ^3/uL (0-0.8); Eosinophils % (auto) 3.1 % (0.0-7.0); Hematocrit 44.8 % (41.0-53.0); Lymphocytes # (auto) 1.8 10 ^3/uL (0.4-5.4); Lymphocytes % (auto) 23.1 % (10.0-50.0); Mean Corpuscular Hemoglobin 30.1 pg (28.0-32.0); Mean Corpuscular Hgb Conc. 35.7 g/dL (32.0-36.0); Mean Corpuscular Volume 84.4 fL (80.0-100.0); Monocytes # (auto) 0.5 10 ^3/uL (0-1.3); Monocytes % (auto) 6.8 % (0.0-12.0); Neutrophils % (auto) 66.2 % (37.0-80.0); Platelet Count (auto) 179 10^3/uL (140-450); Red Cell Distribution Width 14.5 % (11.8-14.3); White Blood Cell 7.6 10^3/uL (4.4-10.8)
[2024-07-28 06:06] LABS: Alanine Aminotransferase 21 U/L (7-40); Albumin 4.5 g/dL (3.2-4.8); Alkaline Phosphatase 141 U/L (46-116); Anion Gap 10 (5-15); Aspartate Aminotransferase 13 U/L (13-40); BUN/Creatinine Ratio 11.1 (10.0-20.0); Bilirubin, Total 1.2 mg/dL (0.2-1.0); Blood Urea Nitrogen 12 mg/dL (9-23); Calcium 9.5 mg/dL (8.7-10.4); Carbon Dioxide 25 mmol/L (20-31); Chloride 106 mmol/L (98-107); Glucose 100 mg/dL (74-106); Potassium 3.6 mmol/L (3.5-5.1); Sodium 141 mmol/L (136-145); Total Protein 6.8 g/dL (5.7-8.2)
[2024-07-28] MEDS: ASPirin 81 mg TAB PO SCH (09:13)
[2024-07-28] MEDS: SPIRONOLACTONE 25 MG TAB PO SCH (09:14)
[2024-07-28] MEDS: SERTRALINE HCL 50 MG TAB PO SCH (09:15)
[2024-07-28] MEDS: FUROSEMIDE 20 MG TAB PO SCH (09:15)
[2024-07-28] MEDS: CLOPIDOGREL BISULFATE 75 MG TAB PO SCH (09:15)
[2024-07-28] MEDS: EMPAGLIFLOZIN 10 MG TAB PO SCH (09:16)
[2024-07-28] MEDS ORDERED: CHOL1TAB42 PO (09:57)
[2024-07-28] MEDS ORDERED: METOPROLOL SUCCINATE XL 50 MG TAB PO SCH (10:00)
[2024-07-28] MEDS ORDERED: CLOPIDOGREL BISULFATE 75 MG TAB PO SCH (10:00)
[2024-07-28] MEDS ORDERED: SOTA80TA PO (10:22)
[2024-07-28 10:44] LABS: Free T3 2.4 pg/mL (2.3-4.2); Free T4 (Free Thyroxine) 1.18 ng/dL (0.89-1.76)
[2024-07-28] MEDS ORDERED: SPIR25TA PO (10:55)
[2024-07-28] MEDS ORDERED: ATORVASTATIN 20 MG TAB PO SCH (22:00)
== END 2024-07-28 13:09 | disposition home or self-care (01) | DRG 194 ==
LOC: ER 21:14 → TELE 07-27 05:45 → TELE-WESTW 07-27 17:05
PROVIDERS: ADMIT Radiology Body Imaging; ATTEND Radiology Body Imaging
DX: I11.0 Hypertensive heart disease with heart failure (principal); E03.9 Hypothyroidism, unspecified; I50.23 Acute on chronic systolic (congestive) heart failure; N39.0 Urinary tract infection, site not specified; I25.5 Ischemic cardiomyopathy; J44.9 Chronic obstructive pulmonary disease, unspecified; E07.9 Disorder of thyroid, unspecified; I45.10 Unspecified right bundle-branch block; F17.210 Nicotine dependence, cigarettes, uncomplicated; F31.9 Bipolar disorder, unspecified; I20.89 Other forms of angina pectoris; F41.9 Anxiety disorder, unspecified; Z95.5 Presence of coronary angioplasty implant and graft; Z88.0 Allergy status to penicillin; I25.2 Old myocardial infarction; Z83.3 Family history of diabetes mellitus; Z82.5 Family history of asthma and other chronic lower respiratory diseases; Z82.49 Family history of ischemic heart disease and other diseases of the circulatory system; Z82.3 Family history of stroke; Z80.3 Family history of malignant neoplasm of breast; Z79.4 Long term (current) use of insulin
CPT/HCPCS: 36415; 71045; 80053; 80061; 80307; 81001; 82306; 82607; 83036; 83735; 83880; 84439; 84443; 84481; 84484; 85025; 93005; 99291; G0378; J3490

== ENCOUNTER 2024-08-05 23:13 | Inpatient (IN) | payer MEDICAID ==
[~2024-08-05] VITALS: Ht 177.8 cm; Wt 94.3 kg
[~2024-08-05 23:13] MED LIST changes: -ALBU108A14 IN; -AMIO200T33 PO; -CETI10TA2 PO; +CHOL1TAB42 PO; -CHOL20007 PO; -FLUT50SP31 EACHNOSTRI; -IPRA0.03 EACHNOSTRI; -LEVO100T8 PO; +LEVO125T7 PO; -MEMA1TAB3 PO; -METO-289 PO; -PANT40TA57 PO; +SOTA80TA PO; +SPIR25TA PO; -SPIR25TA8 PO; -UBRO100T2 PO
[2024-08-05 23:26] VITALS: PULSE 66; RESP 25; O2SAT 95
[2024-08-06] VITALS (8 sets, daily range): BP systolic 99–118; BP diastolic 59–77; PULSE 60–72; RESP 16–22; TEMP 97.4–98.1; O2SAT 94–95
[2024-08-06 02:09] LABS: Urine Bacteria None Seen /hpf (None Seen)
[2024-08-06] MEDS: SODIUM CHLORIDE 0.9% 1,000 ML IV ONE (02:17)
[2024-08-06] MEDS: AMIODARONE HCL 200 MG TAB PO ONE (02:18)
[2024-08-06 02:24] LABS: Basophils # (auto) 0 10 ^3/uL (0-0.2); Basophils % (auto) 0.4 % (0.0-2.0); Eosinophils # (auto) 0.2 10 ^3/uL (0-0.8); Eosinophils % (auto) 2.8 % (0.0-7.0); Hematocrit 45.4 % (41.0-53.0); Hemoglobin 15.6 g/dL (13.5-17.5); Lymphocytes # (auto) 2.5 10 ^3/uL (0.4-5.4); Lymphocytes % (auto) 29.6 % (10.0-50.0); Mean Corpuscular Hemoglobin 29.1 pg (28.0-32.0); Mean Corpuscular Hgb Conc. 34.5 g/dL (32.0-36.0); Mean Corpuscular Volume 84.4 fL (80.0-100.0); Monocytes # (auto) 0.7 10 ^3/uL (0-1.3); Monocytes % (auto) 8.4 % (0.0-12.0); Neutrophils # (auto) 4.9 10 ^3/uL (1.6-8.6); Neutrophils % (auto) 58.8 % (37.0-80.0); Nucleated Red Blood Cells % 0.1 %; Platelet Count (auto) 205 10^3/uL (140-450); Red Blood Cells 5.38 10^6/uL (4.5-5.90); Red Cell Distribution Width 14.3 % (11.8-14.3); White Blood Cell 8.4 10^3/uL (4.4-10.8)
[2024-08-06 02:33] LABS: Urine Blood Negative /uL (Negative); Urine Clarity Clear (Clear); Urine Color Light-Yellow (Yellow); Urine Protein, UAD Negative (Negative); Urine Specific Gravity 1.012 (1.001-1.035); Urine Urobilinogen Normal (Negative); Urine WBC <1 /hpf (0 - 3); Urine pH 6.5 (5.0-9.0)
[2024-08-06 02:33] LABS: Sodium 139 mmol/L (136-145)
[2024-08-06 02:34] LABS: Alanine Aminotransferase 18 U/L (7-40); Alkaline Phosphatase 145 U/L (46-116); Anion Gap 7 (5-15); Aspartate Aminotransferase 13 U/L (13-40); BUN/Creatinine Ratio 11.6 (10.0-20.0); Blood Urea Nitrogen 13 mg/dL (9-23); Carbon Dioxide 27 mmol/L (20-31); Chloride 105 mmol/L (98-107); Glucose 100 mg/dL (74-106); Potassium 3.9 mmol/L (3.5-5.1)
[2024-08-06 02:35] LABS: Albumin 4.8 g/dL (3.2-4.8); Bilirubin, Total 0.7 mg/dL (0.2-1.0); Calcium 10.2 mg/dL (8.7-10.4); Total Protein 7.1 g/dL (5.7-8.2)
[2024-08-06] MEDS: ONDANSETRON HCL 4 MG/2 ML VIAL IV ONE (04:09)
[2024-08-06] MEDS: MORPHINE SULFATE 4 MG/ML SYR/VIAL IV ONE (04:09)
[2024-08-06 04:35] LABS: Basophils # (auto) 0.1 10 ^3/uL (0-0.2); Basophils % (auto) 0.8 % (0.0-2.0); Eosinophils # (auto) 0.2 10 ^3/uL (0-0.8); Eosinophils % (auto) 2.9 % (0.0-7.0); Hematocrit 43.8 % (41.0-53.0); Hemoglobin 15.3 g/dL (13.5-17.5); Lymphocytes # (auto) 2.5 10 ^3/uL (0.4-5.4); Mean Corpuscular Hemoglobin 29.4 pg (28.0-32.0); Mean Corpuscular Hgb Conc. 34.9 g/dL (32.0-36.0); Mean Corpuscular Volume 84.4 fL (80.0-100.0); Monocytes # (auto) 0.6 10 ^3/uL (0-1.3); Neutrophils % (auto) 54.3 % (37.0-80.0); Nucleated Red Blood Cells % 0.1 %; Platelet Count (auto) 183 10^3/uL (140-450); Red Blood Cells 5.19 10^6/uL (4.5-5.90); Red Cell Distribution Width 14.9 % (11.8-14.3); White Blood Cell 7.3 10^3/uL (4.4-10.8)
[2024-08-06 04:45] LABS: Chloride 107 mmol/L (98-107); Potassium 3.7 mmol/L (3.5-5.1); Sodium 139 mmol/L (136-145)
[2024-08-06 04:46] LABS: Anion Gap 7 (5-15); Carbon Dioxide 25 mmol/L (20-31)
[2024-08-06 04:47] LABS: Calcium 9.4 mg/dL (8.7-10.4)
[2024-08-06 04:49] LABS: INR 1.01 (0.9-1.15); Partial Thromboplastin Time 27.3 SEC (24.5-34.5); Prothrombin Time 10.7 sec (9.3-11.8)
[2024-08-06 04:52] LABS: BUN/Creatinine Ratio 12.4 (10.0-20.0); Blood Urea Nitrogen 12 mg/dL (9-23); Glucose 95 mg/dL (74-106)
[2024-08-06] MEDS ORDERED: ACETAMINOPHEN 500 MG TAB PO PRN (05:00)
[2024-08-06] MEDS ORDERED: ONDANSETRON HCL 4 MG/2 ML VIAL IV PRN (05:45)
[2024-08-06] MEDS: LEVOTHYROXINE SODIUM 50 MCG TAB PO SCH (06:06)
[2024-08-06] MEDS: FUROSEMIDE 20 MG TAB PO SCH (06:06)
[2024-08-06] MEDS: ASPirin 81 mg TAB PO ONE (06:06)
[2024-08-06] MEDS: POTASSIUM EFFERVESENT TAB 25 MEQ PO ONE ×2 (06:47)
[2024-08-06] MEDS: PANTOPRAZOLE 40 MG TAB PO ONE (06:47)
[2024-08-06 07:02] LABS: Free T3 2.7 pg/mL (2.3-4.2); Free T4 (Free Thyroxine) 1.37 ng/dL (0.89-1.76)
[2024-08-06 09:21] LABS: COVID19 ANTIGEN SOFIA FIA NEGATIVE (NEGATIVE)
[2024-08-06] MEDS ORDERED: PATIENTS OWN MEDICATION PO SCH (10:00)
[2024-08-06] MEDS: SERTRALINE HCL 50 MG TAB PO SCH (10:35)
[2024-08-06] MEDS: SPIRONOLACTONE 25 MG TAB PO SCH (10:35)
[2024-08-06] MEDS: CLOPIDOGREL BISULFATE 75 MG TAB PO SCH (10:35)
[2024-08-06 13:23] LABS: Amphetamine Screen, Urine Neg (NEGATIVE); Barbiturate Scree,Urine Neg (NEGATIVE); Benzodiazephine Screen, Urine Neg (NEGATIVE); Cannabinoid Screen, Urine Neg (NEGATIVE); Cocaine Screen, Urine Neg (NEGATIVE); Opiate Scree,Urine Neg (NEGATIVE); Phencyclidine Screen, Urine Neg (NEGATIVE)
[2024-08-06] MEDS: ATORVASTATIN 20 MG TAB PO SCH (21:39)
[2024-08-07 01:00] VITALS: BP 111/76; PULSE 68; RESP 16; TEMP 97.8; O2SAT 93
[2024-08-07 05:00] VITALS: BP 119/76; PULSE 60; RESP 16; TEMP 98.2; O2SAT 95
[2024-08-07] MEDS: PANTOPRAZOLE 40 MG TAB PO SCH (05:49)
[2024-08-07 06:20] LABS: Basophils # (auto) 0.1 10 ^3/uL (0-0.2); Basophils % (auto) 1.3 % (0.0-2.0); Eosinophils # (auto) 0.2 10 ^3/uL (0-0.8); Eosinophils % (auto) 3.3 % (0.0-7.0); Hemoglobin 15.7 g/dL (13.5-17.5); Lymphocytes # (auto) 1.7 10 ^3/uL (0.4-5.4); Lymphocytes % (auto) 23.1 % (10.0-50.0); Mean Corpuscular Hemoglobin 29.7 pg (28.0-32.0); Mean Corpuscular Volume 84.8 fL (80.0-100.0); Monocytes # (auto) 0.5 10 ^3/uL (0-1.3); Monocytes % (auto) 6.7 % (0.0-12.0); Neutrophils # (auto) 4.8 10 ^3/uL (1.6-8.6); Neutrophils % (auto) 65.6 % (37.0-80.0); Nucleated Red Blood Cells % 0.2 %; Platelet Count (auto) 185 10^3/uL (140-450); Red Blood Cells 5.31 10^6/uL (4.5-5.90); Red Cell Distribution Width 14.4 % (11.8-14.3); White Blood Cell 7.3 10^3/uL (4.4-10.8)
[2024-08-07 06:31] LABS: Chloride 104 mmol/L (98-107); Potassium 3.9 mmol/L (3.5-5.1); Sodium 137 mmol/L (136-145)
[2024-08-07 06:32] LABS: Anion Gap 8 (5-15); Calcium 9.8 mg/dL (8.7-10.4); Carbon Dioxide 25 mmol/L (20-31)
[2024-08-07 06:37] LABS: BUN/Creatinine Ratio 10.6 (10.0-20.0); Blood Urea Nitrogen 12 mg/dL (9-23); Glucose 117 mg/dL (74-106)
[2024-08-07 08:00] VITALS: PULSE 62; RESP 18; O2SAT 94
[2024-08-07 09:00] VITALS: BP 128/85; PULSE 64; RESP 19; TEMP 98.4; O2SAT 94
[2024-08-07] MEDS: ASPirin 81 mg TAB PO SCH (09:36)
[2024-08-07 11:49] VITALS: BP 125/76; PULSE 62; RESP 18; TEMP 36.9; O2SAT 94
[2024-08-07 13:02] VITALS: BP 115/76; PULSE 63; RESP 18; TEMP 98.1; O2SAT 96
== END 2024-08-07 13:00 | disposition home or self-care (01) | DRG 194 ==
LOC: ER 23:13 → TELE 08-06 04:54 → TELE-EAST 08-06 04:54
PROVIDERS: ADMIT Internal Medicine Geriatric Medicine; ATTEND Internal Medicine Geriatric Medicine
DX: I11.0 Hypertensive heart disease with heart failure (principal); E03.9 Hypothyroidism, unspecified; I25.10 Atherosclerotic heart disease of native coronary artery without angina pectoris; I50.23 Acute on chronic systolic (congestive) heart failure; J44.9 Chronic obstructive pulmonary disease, unspecified; I49.3 Ventricular premature depolarization; K21.9 Gastro-esophageal reflux disease without esophagitis; I44.0 Atrioventricular block, first degree; I25.5 Ischemic cardiomyopathy; F31.9 Bipolar disorder, unspecified; F41.9 Anxiety disorder, unspecified; I25.2 Old myocardial infarction; Z95.5 Presence of coronary angioplasty implant and graft; Z95.810 Presence of automatic (implantable) cardiac defibrillator; Z86.79 Personal history of other diseases of the circulatory system; Z80.3 Family history of malignant neoplasm of breast; Z82.3 Family history of stroke; Z82.49 Family history of ischemic heart disease and other diseases of the circulatory system; Z82.5 Family history of asthma and other chronic lower respiratory diseases; Z83.3 Family history of diabetes mellitus
CPT/HCPCS: 36415; 71045; 80048; 80053; 80307; 81001; 82306; 82607; 83735; 83880; 84439; 84443; 84481; 84484; 85025; 85610; 85730; 87081; 87426; 93005; 96361; 96374; 96375; G0378; J2405

== ENCOUNTER → 2024-09-10 | Outpatient (CLI) | payer MEDICAID ==
[~2024-09-10] MED LIST changes: -SOTA80TA PO
--- NOTE | 2024-09-10 13:52 | DVHSR ---
APPROVED REPORT EXAM: Two-dimensional and M-mode echocardiogram with Doppler and color Doppler. Surgery/Intervention Pacemaker: DIMENSIONS LVDd5.9 (3.8-5.7cm)LA (2D)4.0 (1.9-4.0cm)Aortic Root3.1 (2.0-3.7cm) LVDs4.6 (2.5-4.0cm)LA (MM) (1.9-4.0cm)Aortic Cusp Exc1.5 (1.5-2.0cm) EF (%) 45.0 (55-70%)Rt. Atrium4.1 (1.9-4.0cm)Asc. Aorta cm IVSd1.2 (0.7-1.1cm)RV (D) (1.8-2.4cm) PWd1.0 (0.7-1.1cm) Mitral Valve MitralMitral Stenosis E wave0.61m/sMV Mean GR.mmHg A wave0.96m/sMV Peak GR.mmHg E/A ratio0.62D MVAcm2 DECEL [id number] 1/2 Timems Aortic Valve Aortic ValveAortic Stenosis V10.64m/Danitza Mean GR.6mmHg V21.67m/Danitza Peak GR.11mmHg LVOT Diameter2.5 (1.8-2.4cm)Doppler AVA1.88cm2 Pulmonic Valve V20.86m/s LEFT VENTRICLE The left ventricle is enlarged. The left ventricle is normal in structure. The Ejection Fraction is below normal limits. The Ejection Fraction is 40-50%. RIGHT VENTRICLE The right ventricle is normal size. There is a pacemaker lead in the right ventricle. ATRIA The left atrium is enlarged. The right atrium is enlarged. A pacemaker is seen in the right atrium. The interatrial septum is intact with no evidence for an atrial septal defect. MITRAL VALVE The mitral valve is normal in structure. Mitral regurgitation is mild. PULMONIC VALVE The pulmonic valve is not well visualized. TRICUSPID VALVE The tricuspid valve is grossly normal. There is trace tricuspid regurgitation. AORTIC VALVE The aortic valve opens well. The aortic valve is mildly sclerotic. No aortic regurgitation is present. GREAT VESSELS The aortic root is normal size. PERICARDIAL EFFUSION There is no pericardial effusion. Other Information Technically limited study due to body habitus. Conclusion LVE MILD MR EF 40-45% PACEMAKER LEAD SEEN
== END | disposition home or self-care (01) ==
LOC: Rad HDHVI 09:57
PROVIDERS: ATTEND Internal Medicine Cardiovascular Disease
DX: I08.0 Rheumatic disorders of both mitral and aortic valves (principal); I50.22 Chronic systolic (congestive) heart failure
CPT/HCPCS: 93306

== ENCOUNTER → 2024-09-29 | Outpatient (CLI) | payer MEDICAID ==
[~2024-09-29] VITALS: Ht 170.2 cm; Wt 90.7 kg
[~2024-09-29] MED LIST changes: +ADENOSINE 76 MG in GIVE UN-DILUTED 0 ML IV ONE; +ADENOSINE 90 MG/30 ML INJ IV ONE
== END | disposition home or self-care (01) ==
LOC: Rad HDHVI 08:45
PROVIDERS: ATTEND Internal Medicine Cardiovascular Disease
DX: I11.0 Hypertensive heart disease with heart failure (principal); I50.23 Acute on chronic systolic (congestive) heart failure; I25.2 Old myocardial infarction; E78.00 Pure hypercholesterolemia, unspecified; R00.2 Palpitations; R93.1 Abnormal findings on diagnostic imaging of heart and coronary circulation; I47.20 Ventricular tachycardia, unspecified; I25.5 Ischemic cardiomyopathy; I25.10 Atherosclerotic heart disease of native coronary artery without angina pectoris; Z95.0 Presence of cardiac pacemaker; Z82.49 Family history of ischemic heart disease and other diseases of the circulatory system
CPT/HCPCS: 78452; 93005; 96374; 96375; A9500; J0153

== ENCOUNTER 2024-10-19 16:59 | Emergency (ER) | payer MEDICAID ==
[~2024-10-19] VITALS: Ht 170.2 cm; Wt 91.1 kg
[~2024-10-19 16:59] MED LIST changes: -ADENOSINE 76 MG in GIVE UN-DILUTED 0 ML IV ONE; -ADENOSINE 90 MG/30 ML INJ IV ONE
[2024-10-19 17:25] VITALS: BP 108/66; RESP 18; O2SAT 97
[2024-10-19 17:34] VITALS: PULSE 78
--- NOTE | 2024-10-19 17:44 | ECG ---
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
[2024-10-19 18:41] LABS: Basophils # (auto) 0.1 10 ^3/uL (0-0.2); Basophils % (auto) 1.2 % (0.0-2.0); Eosinophils # (auto) 0.2 10 ^3/uL (0-0.8); Eosinophils % (auto) 2.8 % (0.0-7.0); Hematocrit 47.1 % (41.0-53.0); Hemoglobin 16.3 g/dL (13.5-17.5); Lymphocytes # (auto) 2.1 10 ^3/uL (0.4-5.4); Lymphocytes % (auto) 28.4 % (10.0-50.0); Mean Corpuscular Hemoglobin 29.4 pg (28.0-32.0); Mean Corpuscular Hgb Conc. 34.5 g/dL (32.0-36.0); Mean Corpuscular Volume 85.3 fL (80.0-100.0); Monocytes # (auto) 0.6 10 ^3/uL (0-1.3); Monocytes % (auto) 7.8 % (0.0-12.0); Neutrophils # (auto) 4.5 10 ^3/uL (1.6-8.6); Neutrophils % (auto) 59.8 % (37.0-80.0); Nucleated Red Blood Cells % 0.4 %; Platelet Count (auto) 214 10^3/uL (140-450); Red Blood Cells 5.53 10^6/uL (4.5-5.90); Red Cell Distribution Width 13.9 % (11.8-14.3); White Blood Cell 7.6 10^3/uL (4.4-10.8)
[2024-10-19 19:03] LABS: Alanine Aminotransferase 16 U/L (7-40); Albumin 4.5 g/dL (3.2-4.8); Anion Gap 5 (5-15); BUN/Creatinine Ratio 11.3 (10.0-20.0); Bilirubin, Total 0.7 mg/dL (0.2-1.0); Blood Urea Nitrogen 12 mg/dL (9-23); Calcium 9.9 mg/dL (8.7-10.4); Carbon Dioxide 27 mmol/L (20-31); Potassium 3.9 mmol/L (3.5-5.1); Sodium 140 mmol/L (136-145); Total Protein 6.9 g/dL (5.7-8.2)
[2024-10-19 19:10] LABS: Alkaline Phosphatase 135 U/L (46-116); Aspartate Aminotransferase 13 U/L (13-40); Chloride 108 mmol/L (98-107); Glucose 126 mg/dL (74-106)
[2024-10-19] MEDS ORDERED: ONDA-155 PO (20:06)
--- NOTE | 2024-10-19 20:06 | ED.PDOC ---
GI ASSESSMENT HPI Comments 58-year-old male complaining of one episode of vomiting this morning where he believes he threw up blood. Has a picture present. Patient made breakfast burrito and eat it. Feeling nauseous and threw up. When he threw up he noticed blood streaked tinge. Patient was on Eliquis. States he has had prior esophagitis and ulcers in his stomach. Denies any pain currently. Nothing makes it better, nothing makes it worse. Chief Complaint: GI Bleed Time Seen by MD: 17:27 Primary Care Provider: ADRIANA HUNTER Reviewed Notes: Nurses Notes Allergies: Coded Allergies: Tramadol (Verified Allergy, Severe, MUSCLE RIGITITY, 03/14/19) Penicillins (Verified Allergy, Unknown, 11/06/14) Home Meds Active Scripts Spironolactone (Aldactone) 25 Mg Tab, 25 MG PO DAILY for 30 Days, #30 TAB 2 Refills Prov:JUDY DOBSON RESIDENT 07/28/24 Clopidogrel Bisulfate (CLOPIDOGREL) 75 Mg Tab, 75 MG PO DAILY for 30 Days, #30 TAB 3 Refills Prov:MARISSA GILES REJECT OPENER AND FILLER 10/25/22 Aspirin (Aspir-Low) 81 Mg Tab, 81 MG PO DAILY for 30 Days, #30 TAB 3 Refills Prov:MARISSA GILES REJECT OPENER AND FILLER 10/25/22 Sacubitril-Valsartan (Entresto 24-26 mg) 1 Tab Tab, 1 TAB PO BID for 30 Days, #60 TAB Prov:SULEMAN CRYSTAL MD 06/17/19 Reported Medications Cholecalciferol (VITAMIN D-3) 2,000 Unit Tab, 1 TAB PO DAILY [50 MCG = 2,000 UNITS] 07/28/24 Fluticasone Propionate (Nasal) (Fluticasone Propionate) 50 Mcg/Act Spr, 1 SPRAY EACHNOSTRI BID for 30 Days, #16 07/27/24 Levothyroxine Sodium (Levothyroxine Sodium) 125 Mcg Tab, 1 TAB PO DAILY 07/27/24 Famotidine (Famotidine) 40 Mg Tab, 40 MG PO HS, TAB 05/29/24 Magnesium Oxide (MAGNESIUM OXIDE) 400 Mg Tab, 1 TAB PO DAILY, #30 TAB 5 Refills 02/18/24 Nitroglycerin (NTROSTAT SUBLINGUAL) 0.4 Mg Sl, 0.3 MG SL UD PRN for FOR CHEST PAIN for 30 Days, #100 *MAY REPEAT EVERY 5 MINUTES X 3 TOTAL IF NO RELIEF, INITIATE ANALGESIC THERAPY. NOTIFY PHYSICIAN *Do not crush. 02/17/24 Dapagliflozin Propanediol (Farxiga) 10 Mg Tab, 10 MG PO DAILY, TAB 10/24/22 Atorvastatin Calcium (ATORVASTATIN CALCIUM) 80 Mg Tab, 1 TAB PO DAILY, #30 TAB 5 Refills 08/27/18 Furosemide (Lasix) 20 Mg Tb, 1 TAB PO QAM, #90 TAB 1 Refill 11/09/15 Sertraline Hcl (Zoloft) 50 Mg Tab, 50 MG PO DAILY, TAB 12/12/14 Information Source: Patient Mode of Arrival: Ambulatory Past Medical History PAST MEDICAL HISTORY: Anxiety, CHF, CKF, COPD, Depression, HTN, HI, Thyroid Surgical History: Pacemaker, PTCA, Tonsillectomy Family History Family History: Family hx of Cancer, Family hx of heart yoselin Social History Smoker: Cigarettes, Less Than 1 Pack/Day Alcohol: Denies ETOH Use Drugs: Denies Drug Use Lives In: Home Constitutional: denies: chills, diaphoresis, fatigue, fever, malaise, sweats, weakness, others EENTM: denies: blurred vision, double vision, ear bleeding, ear discharge, ear drainage, ear pain, ear ringing, eye pain, eye redness, hearing loss, mouth pain, mouth swelling, nasal discharge, nose bleeding, nose congestion, nose pain, photophobia, tearing, throat pain, throat swelling, voice changes, others Respiratory: denies: cough, hemoptysis, orthopnea, SOB at rest, shortness of breath, SOB with excertion, stridor, wheezing, others Cardiovascular: denies: chest pain, dizzy spells, diaphoresis, Dyspnea on exertion, edema, irregular heart beat, left arm pain, lightheadedness, palpitations, PND, syncope, others Gastrointestinal: reports: nausea, vomiting; denies: abdomen distended, abdominal pain, blood streaked bowels, constipated, diarrhea, dysphagia, difficulty swallowing, hematemesis, melena, poor appetite, poor fluid intake, rectal bleeding, rectal pain, others Neurological: denies: dizziness, fainting, headache, left sided numbness, left sided weakness, numbness, paresthesia, pre-existing deficit, right sided numbness, right sided weakness, seizure, speech problems, tingling, tremors, weakness, others Musculoskeletal: denies: back pain, gout, joint pain, joint swelling, muscle pain, muscle stiffness, neck pain, others Integumetry: denies: bruises, change in color, change in hair/nails, dryness, laceration, lesions, lumps, rash, wounds, others Allergic/Immunocompromised: denies: Difficulty Healing, Frequent Infections, Hives, Itching, others Hematologic/Lymphatic: denies: anemia, blood clots, easy bleeding, easy bruising, swollen glands, others Physical Exam General Appearance: No Apparent Distress, Normal HEENT: Normal ENT Inspection, Pharynx Normal, TMs Normal Neck: Full Range of Motion, Non-Tender, Normal, Normal Inspection Respiratory: Chest Non-Tender, Lungs Clear, No Accessory Muscle Use, No Respiratory Distress, Normal Breath Sounds Cardiovascular: No Edema, No JVD, No Murmur, No Gallop, Normal Peripheral Pulses, Regular Rate/Rhythm Breast Exam: Deferred Gastrointestinal: No Organomegaly, Non Tender, No Pulsatile Mass, Normal Bowel Sounds, Soft Genitalia: Deferred Pelvic: Deferred Rectal: Deferred Extremities: No calf tenderness, Normal capillary refill, Normal inspection, Normal range of motion, Non-tender, No pedal edema Musculoskeletal : Apperance: Normal Neurologic: Alert, tie maker II-XII nml as Tested, No Motor Deficits, Normal Affect, Normal Mood, No Sensory Deficits Cerebellar Function: Normal Reflexes: Normal Skin: Dry, Normal Color, Warm Lymphatic: No Adenopathy Was a procedure done? Was a procedure done?: No GI differential Dx Differential Diagnosis: Gastritis/PUD, Gastroenteritis, GI hemorrhage X-Ray, Labs, Meds, VS Vital Signs Date Time Temp Pulse Resp B/P (MAP) Pulse Ox O2 Delivery O2 Flow Rate FiO2 10/19/24 17:34 78 10/19/24 17:25 97.4 78 18 108/66 (80) 97 Lab Test 10/19/24 18:19 10/19/24 17:29 Range/Units White Blood Count 7.6 4.4-10.8 10^3/uL Red Blood Count 5.53 4.5-5.90 10^6/uL Hemoglobin 16.3 13.5-17.5 g/dL Hematocrit 47.1 41.0-53.0 % Mean Corpuscular Volume 85.3 80.0-100.0 fL Mean Corpuscular Hemoglobin 29.4 28.0-32.0 pg Mean Corpuscular Hemoglobin Concent 34.5 32.0-36.0 g/dL Red Cell Distribution Width 13.9 11.8-14.3 % Platelet Count 214 140-450 10^3/uL Mean Platelet Volume 8.8 6.9-10.8 fL Neutrophils (%) (Auto) 59.8 37.0-80.0 % Lymphocytes (%) (Auto) 28.4 10.0-50.0 % Monocytes (%) (Auto) 7.8 0.0-12.0 % Eosinophils (%) (Auto) 2.8 0.0-7.0 % Basophils (%) (Auto) 1.2 0.0-2.0 % Neutrophils # (Auto) 4.5 1.6-8.6 10 ^3/uL Lymphocytes # (Auto) 2.1 0.4-5.4 10 ^3/uL Monocytes # (Auto) 0.6 0-1.3 10 ^3/uL Eosinophils # (Auto) 0.2 0-0.8 10 ^3/uL Basophils # (Auto) 0.1 0-0.2 10 ^3/uL Nucleated Red Blood Cells 0.4 % Sodium Level 140 136-145 mmol/L Potassium Level 3.9 3.5-5.1 mmol/L Chloride Level 108 H 98-107 mmol/L Carbon Dioxide Level 27 20-31 mmol/L Anion Gap 5 5-15 Blood Urea Nitrogen 12 9-23 mg/dL Creatinine 1.06 0.700-1.30 mg/dL Glomerular Filtration Rate Calc 82 >90 mL/min BUN/Creatinine Ratio 11.3 10.0-20.0 Serum Glucose 126 H 74-106 mg/dL Calcium Level 9.9 8.7-10.4 mg/dL Total Bilirubin 0.7 0.2-1.0 mg/dL Aspartate Amino Transferase (AST) 13 13-40 U/L Alanine Aminotransferase (ALT) 16 7-40 U/L Alkaline Phosphatase 135 H 46-116 U/L Total Protein 6.9 5.7-8.2 g/dL Albumin 4.5 3.2-4.8 g/dL POC Glucose 129 H 70-106 mg/dl X-Ray, Labs, Meds, VS Comment Imaging: X-rays and CT scans were reviewed and interpreted by this provider, imaging shows no fractures and no pathological disease. Pending radiology review. Laboratory: Labs reviewed and interpreted by this provider. No significant abnormalities noted. Patient has prior medical visits reviewed. Med reconciliation performed Vital signs reviewed Time of 1ST Reevaluation: 20:05 Reevaluation 1ST: Improved Patient Education/Counseling: Diagnosis, Treatment, Need For Follow Up (Follow up in the emergency department the next 24-48 hours if symptoms worsen.) Family Education/Counseling: Diagnosis Departure 1 Departure Time of Disposition: 20:05 Impression: Primary Impression: Gastroesophageal reflux Qualified Codes: K21.00 - Gastro-esophageal reflux disease with esophagitis, without bleeding Disposition: HOME / SELF CARE / HOMELESS Condition: Fair e-Prescriptions Ondansetron HCl (Ondansetron) 4 Mg Tab 4 MG PO TID PRN, #15 TAB Prov: SACHA IBRAHIM 10/19/24 Discharged With: Self Critical Care Note Critical Care Time?: No Stability Stability form required: No Heart Score Heart Score: Heart Score Response (Comments) Value History N/A 0 EKG N/A 0 Age N/A 0 Risk Factors N/A 0 Troponin N/A 0 Total 0 SACHA IBRAHIM Oct 19, 2024 20:06
== END 2024-10-19 22:55 | disposition home or self-care (01) ==
LOC: ER 16:59
DX: K21.9 Gastro-esophageal reflux disease without esophagitis (principal); J44.9 Chronic obstructive pulmonary disease, unspecified; E03.9 Hypothyroidism, unspecified; I13.0 Hypertensive heart and chronic kidney disease with heart failure and stage 1 through stage 4 chronic kidney disease, or unspecified chronic kidney disease; N18.9 Chronic kidney disease, unspecified; I50.89 Other heart failure; F17.210 Nicotine dependence, cigarettes, uncomplicated; Z88.0 Allergy status to penicillin; Z88.6 Allergy status to analgesic agent; Z79.899 Other long term (current) drug therapy; Z90.89 Acquired absence of other organs; Z98.890 Other specified postprocedural states
CPT/HCPCS: 36415; 80053; 82962; 85025; 93005

== ENCOUNTER 2025-06-24 14:54 | Emergency (ER) | payer MEDICAID ==
[~2025-06-24] VITALS: Ht 170.2 cm; Wt 88.1 kg
[~2025-06-24 14:54] MED LIST changes: +ONDA-155 PO
[2025-06-24 16:01] VITALS: BP 116/74; PULSE 69; RESP 18; TEMP 98.3; O2SAT 95
--- NOTE | 2025-06-24 16:33 | ED.PDOC ---
History of Present Illness(SKN HPI Comments THIS IS A 59 YEAR-OLD MALE WHO PRESENTS TO THE ED WITH A CHIEF COMPLAINT OF INSECT BITE TO L ANKLE TODAY. PATIENT STATES HE WAS OUTSIDE WHEN HE WAS BITTEN BY AN UNKNOWN INSECT. PATIENT HAS NO FURTHER COMPLAINTS AT THIS TIME AND OTHERWISE DENIES N/V/D, FEVER, CHILLS, CHEST PAIN, OR SOB. PATIENT IS ALERT, ORIENTED X 4, AND HAS STEADY GAIT. Chief Complaint: Insect Bite Time Seen by MD: 16:23 Primary Care Provider: ADRIANA HUNTER History of Present Illness: Nurses Notes, Medications, Allergies Allergies: Coded Allergies: Tramadol (Verified Allergy, Severe, MUSCLE RIGITITY, 03/14/19) Penicillins (Verified Allergy, Unknown, 11/06/14) Home Meds Active Scripts Sulfamethoxazole W/Trimethopri (Bactrim Ds Tablet) 1 Tab Tb, 1 TAB PO BID for 10 Days, #20 TAB Prov:CHAPIS CEJA PA 06/24/25 Ondansetron HCl (Ondansetron) 4 Mg Tab, 4 MG PO TID PRN, #15 TAB Prov:SACHA IBRAHIMP 10/19/24 Spironolactone (Aldactone) 25 Mg Tab, 25 MG PO DAILY for 30 Days, #30 TAB 2 Refills Prov:JUDY DOBSON RESIDENT 07/28/24 Clopidogrel Bisulfate (CLOPIDOGREL) 75 Mg Tab, 75 MG PO DAILY for 30 Days, #30 TAB 3 Refills Prov:MARISSA GILES FRUIT RANCHER 10/25/22 Aspirin (Aspir-Low) 81 Mg Tab, 81 MG PO DAILY for 30 Days, #30 TAB 3 Refills Prov:MARISSA GILES FRUIT RANCHER 10/25/22 Sacubitril-Valsartan (Entresto 24-26 mg) 1 Tab Tab, 1 TAB PO BID for 30 Days, #60 TAB Prov:SULEMAN CRYSTAL MD 06/17/19 Reported Medications Cholecalciferol (VITAMIN D-3) 2,000 Unit Tab, 1 TAB PO DAILY [50 MCG = 2,000 UNITS] 07/28/24 Fluticasone Propionate (Nasal) (Fluticasone Propionate) 50 Mcg/Act Spr, 1 SPRAY EACHNOSTRI BID for 30 Days, #16 07/27/24 Levothyroxine Sodium (Levothyroxine Sodium) 125 Mcg Tab, 1 TAB PO DAILY 07/27/24 Famotidine (Famotidine) 40 Mg Tab, 40 MG PO HS, TAB 05/29/24 Magnesium Oxide (MAGNESIUM OXIDE) 400 Mg Tab, 1 TAB PO DAILY, #30 TAB 5 Refills 02/18/24 Nitroglycerin (NTROSTAT SUBLINGUAL) 0.4 Mg Sl, 0.3 MG SL UD PRN for FOR CHEST PAIN for 30 Days, #100 *MAY REPEAT EVERY 5 MINUTES X 3 TOTAL IF NO RELIEF, INITIATE ANALGESIC THERAPY. NOTIFY PHYSICIAN *Do not crush. 02/17/24 Dapagliflozin Propanediol (Farxiga) 10 Mg Tab, 10 MG PO DAILY, TAB 10/24/22 Atorvastatin Calcium (ATORVASTATIN CALCIUM) 80 Mg Tab, 1 TAB PO DAILY, #30 TAB 5 Refills 08/27/18 Furosemide (Lasix) 20 Mg Tb, 1 TAB PO QAM, #90 TAB 1 Refill 11/09/15 Sertraline Hcl (Zoloft) 50 Mg Tab, 50 MG PO DAILY, TAB 12/12/14 Information Source: Patient Mode of Arrival: Ambulatory Severity: Mild Timing: Hours Duration: Since onset Prehospital treatment: None Location: Leg (LEFT ) Mechanism: Insect Occurence: Outdoors Associated Signs and Symptoms: Redness Past Medical History PAST MEDICAL HISTORY: Anxiety, CHF, CKF, COPD, Depression, HTN, [place], Thyroid Surgical History: Pacemaker, PTCA, Tonsillectomy Family History Family History: Family hx of Cancer, Family hx of heart yoselin Social History Smoker: Cigarettes, Less Than 1 Pack/Day Alcohol: Denies ETOH Use Drugs: Denies Drug Use Lives In: Home Constitutional: denies: chills, diaphoresis, fatigue, fever, malaise, sweats, weakness, others EENTM: denies: blurred vision, double vision, ear bleeding, ear discharge, ear drainage, ear pain, ear ringing, eye pain, eye redness, hearing loss, mouth pain, mouth swelling, nasal discharge, nose bleeding, nose congestion, nose pain, photophobia, tearing, throat pain, throat swelling, voice changes, others Respiratory: denies: cough, hemoptysis, orthopnea, SOB at rest, shortness of breath, SOB with excertion, stridor, wheezing, others Cardiovascular: denies: chest pain, dizzy spells, diaphoresis, Dyspnea on exertion, edema, irregular heart beat, left arm pain, lightheadedness, palpitations, PND, syncope, others Gastrointestinal: denies: abdomen distended, abdominal pain, blood streaked bowels, constipated, diarrhea, dysphagia, difficulty swallowing, hematemesis, melena, nausea, poor appetite, poor fluid intake, rectal bleeding, rectal pain, vomiting, others Genitourinary: denies: burning, dysuria, flank pain, frequency, hematuria, incontinence, penile discharge, penile sore, pain, testicle pain, testicle swelling, urgency, others Neurological: denies: dizziness, fainting, headache, left sided numbness, left sided weakness, numbness, paresthesia, pre-existing deficit, right sided numbness, right sided weakness, seizure, speech problems, tingling, tremors, weakness, others Musculoskeletal: denies: back pain, gout, joint pain, joint swelling, muscle pain, muscle stiffness, neck pain, others Integumetry: reports: lesions, lumps, wounds (PUNCTURE WOUND S/P INSECT BITE ); denies: bruises, change in color, change in hair/nails, dryness, laceration, rash, others Allergic/Immunocompromised: denies: Difficulty Healing, Frequent Infections, Hives, Itching, others Hematologic/Lymphatic: denies: anemia, blood clots, easy bleeding, easy bruising, swollen glands, others Endocrine: denies: excessive hunger, excessive sweating, excessive thirst, excessive urination, flushing, intolerance to cold, intolerance to heat, unexplained weight gain, unexplained weight loss, others Psychiatric: denies: anxiety, bipolar disorder, depression, hopeless, panic disorder, schizophrenia, sleepless, suicidal, others All Other Systems: Reviewed and Negative Physical Exam General Appearance: No Apparent Distress, Normal HEENT: Normal ENT Inspection, PERRL/EOMI, Pharynx Normal, TMs Normal Neck: Full Range of Motion, Non-Tender, Normal, Normal Inspection Respiratory: Chest Non-Tender, Lungs Clear, No Accessory Muscle Use, No Respiratory Distress, Normal Breath Sounds Cardiovascular: No Edema, No JVD, No Murmur, No Gallop, Normal Peripheral Puls es, Regular Rate/Rhythm Breast Exam: Deferred Gastrointestinal: No Organomegaly, Non Tender, No Pulsatile Mass, Normal Bowel Sounds, Soft Genitalia: Deferred Pelvic: Deferred Rectal: Deferred Extremities: No calf tenderness, Normal capillary refill, Normal range of motion, No pedal edema, Tender (WITH A SMALL RED BUMP ON LEFT ANTERIOR LOWER LEG. ) Musculoskeletal : Apperance: Normal Neurologic: Alert, fitter's assistant II-XII nml as Tested, No Motor Deficits, Normal Affect, Normal Mood, No Sensory Deficits Cerebellar Function: Normal Reflexes: Normal Skin: Dry, Normal Color, Warm, Wounds (A SMALL RED BUMP ON LEFT ANTERIOR LOWER LEG, NO BLEEDING AND DRAINAGE. ) Peripheral Pulses: 2+ carotid (R), 2+ carotid (L), 2+ dorsalis pedis (R), 2+ dorsalis pedis (L) Lymphatic: No Adenopathy Was a procedure done? Was a procedure done?: No Differential Diagnosis (INTG) Differential Diagnosis: Cellulitis, Insect Envenomation, Puncture Wound Differential Diagnosis: Impetigo, Other (INSECT BITE WOUND) X-Ray, Labs, Meds, VS Vital Signs Date Time Temp Pulse Resp B/P (MAP) Pulse Ox O2 Delivery O2 Flow Rate FiO2 06/24/25 16:01 98.3 69 18 116/74 (88) 95 98.3 06/24/25 14:56 97.6 77 18 135/83 98 97.6 X-Ray, Labs, Meds, VS Comment EXTERNAL MEDICAL RECORDS REVIEWED: [NONE] INDEPENDENT HISTORIANS: [NONE] SOCIAL DETERMINANTS OF HEALTH: [NONE] LABS ORDERED: NONE REVIEWED AND INTERPRETED RESULTS: NONE IMAGING ORDERED: NONE TREATMENTS ORDERED: NONE PROCEDURES PERFORMED: NONE CRITICAL CARE TIME: NONE I HAVE DISCUSSED THE PATIENT WITH THE ATTENDING PHYSICIAN, DR. CAPELLAN AND HE AGR EES WITH THE PATIENT'S PLAN OF CARE AND DISPOSITION. BASED ON HISTORY OF PRESENT ILLNESS, AND PHYSICAL EXAM, PATIENT WILL BE DI SCHARGED HOME. DISCUSSED PLAN FOR DISCHARGE HOME WITH RX [BACTRIM DS]. MEDICATION WARNINGS GIVEN. SHARED DECISION MAKING: DISCUSSED WITH PATIENT THAT THEIR WORKUP WAS NORMAL. PATIENT INSTRUCTED TO FOLLOW UP WITH PRIMARY CARE PROVIDER IN 1-2 DAYS FOR RE-E VALUATION OF SYMPTOMS. PATIENT VERBALIZES UNDERSTANDING TO RETURN TO ED FOR NEW OR WORSENING SYMPTOMS OR IF FOLLOW UP WITH PCP CANNOT BE OBTAINED. PATIENT FEELS COMFORTABLE GOING HOME AT THIS TIME. ALL QUESTIONS ADDRESSED AT TIME OF DISCHARGE. Images Reviewed?: Images reviewed and evaluated by me Time of 1ST Reevaluation: 16:44 Reevaluation 1ST: Improved Patient Education/Counseling: Diagnosis, Treatment, Need For Follow Up Family Education/Counseling: Diagnosis, Treatment, No Family Present Medical Screening: No EMC Exist At This Time SEPSIS Sepsis Screen Date sepsis recognized/suspect: Jun 24, 2025 Time Sepsis recognized/suspect: 1458 Recent Procedure: No On Antibiotic Therapy: No Respiratory Rate >20: No Heart Rate >90: No Temp<36 C (96.8 F) or >38.3 C: No SBP <90 or MAP <65 mmHG: No New Acute Mental Status Change: No Is the patient on CPAP, BIPAP,: No Vital Signs Date Time Temp Pulse Resp B/P (MAP) Pulse Ox O2 Delivery O2 Flow Rate FiO2 06/24/25 16:01 98.3 69 18 116/74 (88) 95 98.3 06/24/25 14:56 97.6 77 18 135/83 98 97.6 Departure 1 Departure Time of Disposition: 16:44 Impression: Primary Impression: Insect bite (nonvenomous), left ankle, initial encounter Disposition: 01 HOME / SELF CARE / HOMELESS Condition: Stable Additional Instructions: FOLLOW-UP WITH PCP IN 1 TO 2 DAYS. TAKE MEDICATIONS PRESCRIBED. RETURN TO ED FOR ANY NEW OR WORSENING SYMPTOMS. e-Prescriptions Sulfamethoxazole W/Trimethopri (Bactrim Ds Tablet) 1 Tab Tb 1 TAB PO BID for 10 Days, #20 TAB Prov: CHAPIS CEJA 06/24/25 Discharged With: Self Critical Care Note Critical Care Time?: No Stability Stability form required: No Heart Score Heart Score: Heart Score Response (Comments) Value History N/A 0 EKG N/A 0 Age N/A 0 Risk Factors N/A 0 Troponin N/A 0 Total 0 I personally scribed for CHAPIS CEJA ([email or web address]) on 06/24/25 at 16:32. Electronically submitted by Isabel Dudley ([email or web address]). I personally scribed for CHAPIS CEJA ([email or web address]) on 06/24/25 at 16:40. Electronically submitted by Isabel Dudley ([email or web address]). CHAPIS CEJA Jun 24, 2025 16:32
[2025-06-24] MEDS ORDERED: BACDST PO (16:40)
== END 2025-06-24 16:40 | disposition home or self-care (01) ==
LOC: ER 14:54
DX: S90.562A Insect bite (nonvenomous), left ankle, initial encounter (principal); I13.0 Hypertensive heart and chronic kidney disease with heart failure and stage 1 through stage 4 chronic kidney disease, or unspecified chronic kidney disease; E11.22 Type 2 diabetes mellitus with diabetic chronic kidney disease; N18.9 Chronic kidney disease, unspecified; I50.9 Heart failure, unspecified; F32.A Depression, unspecified; F41.9 Anxiety disorder, unspecified; I25.2 Old myocardial infarction; J44.9 Chronic obstructive pulmonary disease, unspecified; E03.9 Hypothyroidism, unspecified; F17.210 Nicotine dependence, cigarettes, uncomplicated; Z79.82 Long term (current) use of aspirin; Z79.84 Long term (current) use of oral hypoglycemic drugs; Z79.899 Other long term (current) drug therapy; Z90.89 Acquired absence of other organs; Z95.0 Presence of cardiac pacemaker; Z88.0 Allergy status to penicillin; Z88.5 Allergy status to narcotic agent; W57.XXXA Bitten or stung by nonvenomous insect and other nonvenomous arthropods, initial encounter; Y93.89 Activity, other specified; Y92.89 Other specified places as the place of occurrence of the external cause; Y99.8 Other external cause status

== ENCOUNTER 2025-07-21 17:01 | Inpatient (IN) | payer MEDICAID ==
[~2025-07-21] VITALS: Ht 170.2 cm; Wt 92.7 kg
[~2025-07-21 17:01] MED LIST changes: +BACDST PO
--- NOTE | 2025-07-21 17:20 | ECG ---
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
[2025-07-21 18:36] LABS: Hematocrit 45.4 % (41.0-53.0); Hemoglobin 16.1 g/dL (13.5-17.5); Mean Corpuscular Hemoglobin 29.7 pg (28.0-32.0); Mean Corpuscular Volume 83.7 fL (80.0-100.0); Nucleated Red Blood Cells % 0.1 %
--- NOTE | 2025-07-21 18:42 | ED.PDOC ---
HPI Comments 59-year-old male who came to ER for chest pains. Patient has a extensive cardiac history, hypertension, coronary artery disease, mi, status post cardiac stents and AICD last 2014. Since yesterday patient has been experiencing sharp left-sided chest pains, intermittent, unprovoked, like his defibrillator acting up. She is under lot of stress recently due to family issues. Chief Complaint: Chest Pain Time Seen by MD: 18:41 Primary Care Provider: ADRIANA BARTH/ ELSA Reviewed Notes: Nurses Notes Allergies: Coded Allergies: Tramadol (Verified Allergy, Severe, MUSCLE RIGITITY, 03/14/19) Penicillins (Verified Allergy, Unknown, 11/06/14) Home Meds Active Scripts Sulfamethoxazole W/Trimethopri (Bactrim Ds Tablet) 1 Tab Tb, 1 TAB PO BID for 10 Days, #20 TAB Prov:CHAPIS CEJA 06/24/25 Ondansetron HCl (Ondansetron) 4 Mg Tab, 4 MG PO TID PRN, #15 TAB Prov:SACHA IBRAHIM 10/19/24 Spironolactone (Aldactone) 25 Mg Tab, 25 MG PO DAILY for 30 Days, #30 TAB 2 Refills Prov:JUDY DOBSON RESIDENT 07/28/24 Clopidogrel Bisulfate (CLOPIDOGREL) 75 Mg Tab, 75 MG PO DAILY for 30 Days, #30 TAB 3 Refills Prov:MARISSA GILES STENCIL CUTTER MACHINE 10/25/22 Aspirin (Aspir-Low) 81 Mg Tab, 81 MG PO DAILY for 30 Days, #30 TAB 3 Refills Prov:MARISSA GILES NP 10/25/22 Sacubitril-Valsartan (Entresto 24-26 mg) 1 Tab Tab, 1 TAB PO BID for 30 Days, #60 TAB Prov:SULEMAN CRYSTAL MD 06/17/19 Reported Medications Cholecalciferol (VITAMIN D-3) 2,000 Unit Tab, 1 TAB PO DAILY [50 MCG = 2,000 UNITS] 07/28/24 Fluticasone Propionate (Nasal) (Fluticasone Propionate) 50 Mcg/Act Spr, 1 SPRAY EACHNOSTRI BID for 30 Days, #16 07/27/24 Levothyroxine Sodium (Levothyroxine Sodium) 125 Mcg Tab, 1 TAB PO DAILY 07/27/24 Famotidine (Famotidine) 40 Mg Tab, 40 MG PO HS, TAB 05/29/24 Magnesium Oxide (MAGNESIUM OXIDE) 400 Mg Tab, 1 TAB PO DAILY, #30 TAB 5 Refills 02/18/24 Nitroglycerin (NTROSTAT SUBLINGUAL) 0.4 Mg Sl, 0.3 MG SL UD PRN for FOR CHEST PAIN for 30 Days, #100 *MAY REPEAT EVERY 5 MINUTES X 3 TOTAL IF NO RELIEF, INITIATE ANALGESIC THERAPY. NOTIFY PHYSICIAN *Do not crush. 02/17/24 Dapagliflozin Propanediol (Farxiga) 10 Mg Tab, 10 MG PO DAILY, TAB 10/24/22 Atorvastatin Calcium (ATORVASTATIN CALCIUM) 80 Mg Tab, 1 TAB PO DAILY, #30 TAB 5 Refills 08/27/18 Furosemide (Lasix) 20 Mg Tb, 1 TAB PO QAM, #90 TAB 1 Refill 11/09/15 Sertraline Hcl (Zoloft) 50 Mg Tab, 50 MG PO DAILY, TAB 12/12/14 Information Source: Patient Mode of Arrival: Ambulatory Severity: Moderate Timing: Hours Duration: Intermittent Past Medical History PAST MEDICAL HISTORY: Anxiety, CAD, CHF, CKF, COPD, Depression, VT, Thyroid Past Medical History (Other): V-tach Surgical History: Pacemaker, PTCA, Tonsillectomy Family History Family History: Family hx of Cancer, Family hx of heart yoselin Social History Smoker: Cigarettes, Less Than 1 Pack/Day Alcohol: Denies ETOH Use Drugs: Denies Drug Use Lives In: Home Constitutional: denies: chills, diaphoresis, fatigue, fever, malaise, sweats, weakness, others EENTM: denies: blurred vision, double vision, ear bleeding, ear discharge, ear drainage, ear pain, ear ringing, eye pain, eye redness, hearing loss, mouth pain, mouth swelling, nasal discharge, nose bleeding, nose congestion, nose pain, photophobia, tearing, throat pain, throat swelling, voice changes, others Respiratory: denies: cough, hemoptysis, orthopnea, SOB at rest, shortness of breath, SOB with excertion, stridor, wheezing, others Cardiovascular: reports: chest pain; denies: dizzy spells, diaphoresis, Dyspnea on exertion, edema, irregular heart beat, left arm pain, lightheadedness, palpitations, PND, syncope, others Gastrointestinal: denies: abdomen distended, abdominal pain, blood streaked bowels, constipated, diarrhea, dysphagia, difficulty swallowing, hematemesis, melena, nausea, poor appetite, poor fluid intake, rectal bleeding, rectal pain, vomiting, others Genitourinary: denies: burning, dysuria, flank pain, frequency, hematuria, incontinence, penile discharge, penile sore, pain, testicle pain, testicle swelling, urgency, others Neurological: denies: dizziness, fainting, headache, left sided numbness, left sided weakness, numbness, paresthesia, pre-existing deficit, right sided numbness, right sided weakness, seizure, speech problems, tingling, tremors, weakness, others Musculoskeletal: denies: back pain, gout, joint pain, joint swelling, muscle pain, muscle stiffness, neck pain, others Integumetry: denies: bruises, change in color, change in hair/nails, dryness, laceration, lesions, lumps, rash, wounds, others Allergic/Immunocompromised: denies: Difficulty Healing, Frequent Infections, Hives, Itching, others Hematologic/Lymphatic: denies: anemia, blood clots, easy bleeding, easy bruising, swollen glands, others Endocrine: denies: excessive hunger, excessive sweating, excessive thirst, excessive urination, flushing, intolerance to cold, intolerance to heat, unexplained weight gain, unexplained weight loss, others Psychiatric: denies: anxiety, bipolar disorder, depression, hopeless, panic disorder, schizophrenia, sleepless, suicidal, others Physical Exam General Appearance: No Apparent Distress, Normal HEENT: Normal ENT Inspection, Pharynx Normal, TMs Normal Neck: Full Range of Motion, Non-Tender, Normal, Normal Inspection Respiratory: Chest Non-Tender, Lungs Clear, No Accessory Muscle Use, No Respiratory Distress, Normal Breath Sounds Cardiovascular: No Edema, No JVD, No Murmur, No Gallop, Normal Peripheral Pulses, Regular Rate/Rhythm Breast Exam: Deferred Gastrointestinal: No Organomegaly, Non Tender, No Pulsatile Mass, Normal Bowel Sounds, Soft Genitalia: Deferred Pelvic: Deferred Rectal: Deferred Extremities: No calf tenderness, Normal capillary refill, Normal inspection, Normal range of motion, Non-tender, No pedal edema Musculoskeletal : Apperance: Normal Neurologic: Alert, ammunition assembly ii laborer II-XII nml as Tested, No Motor Deficits, Normal Affect, Normal Mood, No Sensory Deficits Cerebellar Function: Normal Reflexes: Normal Skin: Dry, Normal Color, Warm Lymphatic: No Adenopathy EKG EKG : Pulse Rate (adult): 76 Cardiac Rhythm: NSR Block: RBBB Was a procedure done? Was a procedure done?: No CP Differential Dx Differential Diagnosis: Angina, Anxiety / Panic Attack, Pacemaker Malfunction, V-Tach Differential Diagnosis: Angina, Chest Wall Pain, Costochondritis, Esophageal reflux/spasm, Gastritis, Myocardial Infarction X-Ray, Labs, Meds, VS Vital Signs Date Time Temp Pulse Resp B/P (MAP) Pulse Ox O2 Delivery O2 Flow Rate FiO2 07/21/25 18:42 76 07/21/25 18:25 66 07/21/25 17:07 76 07/21/25 17:05 98.9 63 17 114/79 97 98.9 Lab Test 07/21/25 18:30 07/21/25 17:29 Range/Units Troponin I High Sensitivity 6 5 </=54 ng/L White Blood Count 7.7 4.4-10.8 10^3/uL Red Blood Count 5.42 4.5-5.90 10^6/uL Hemoglobin 16.1 13.5-17.5 g/dL Hematocrit 45.4 41.0-53.0 % Mean Corpuscular Volume 83.7 80.0-100.0 fL Mean Corpuscular Hemoglobin 29.7 28.0-32.0 pg Mean Corpuscular Hemoglobin Concent 35.5 32.0-36.0 g/dL Red Cell Distribution Width 14.0 11.8-14.3 % Platelet Count 222 140-450 10^3/uL Mean Platelet Volume 8.6 6.9-10.8 fL Neutrophils (%) (Auto) 57.1 37.0-80.0 % Lymphocytes (%) (Auto) 30.9 10.0-50.0 % Monocytes (%) (Auto) 7.9 0.0-12.0 % Eosinophils (%) (Auto) 3.2 0.0-7.0 % Basophils (%) (Auto) 0.9 0.0-2.0 % Neutrophils # (Auto) 4.4 1.6-8.6 10 ^3/uL Lymphocytes # (Auto) 2.4 0.4-5.4 10 ^3/uL Monocytes # (Auto) 0.6 0-1.3 10 ^3/uL Eosinophils # (Auto) 0.2 0-0.8 10 ^3/uL Basophils # (Auto) 0.1 0-0.2 10 ^3/uL Nucleated Red Blood Cells 0.1 % Sodium Level 141 136-145 mmol/L Potassium Level 3.9 3.5-5.1 mmol/L Chloride Level 103 98-107 mmol/L Carbon Dioxide Level 30 20-31 mmol/L Anion Gap 8 5-15 Blood Urea Nitrogen 13 9-23 mg/dL Creatinine 1.18 0.700-1.30 mg/dL Glomerular Filtration Rate Calc 72 >90 mL/min BUN/Creatinine Ratio 11.0 10.0-20.0 Serum Glucose 109 H 74-106 mg/dL Calcium Level 9.2 8.7-10.4 mg/dL Total Bilirubin 0.7 0.2-1.0 mg/dL Aspartate Amino Transferase (AST) 21 13-40 U/L Alanine Aminotransferase (ALT) 21 7-40 U/L Alkaline Phosphatase 147 H 46-116 U/L Total Protein 7.1 5.7-8.2 g/dL Albumin 4.6 3.2-4.8 g/dL CHEST RADIOGRAPH Indication: chest pain Technique: Single frontal view of the chest was obtained Comparison: XY CHEST XRAY 1 VIEW on DOS: 08/06/24, XY CHEST PORTABLE on DOS: 07/26/24, XY CHEST PORTABLE on DOS: 02/16/24 FINDINGS: Lines and Tubes: Pacemaker is in place a unipolar lead in the right ventricle. Pulse generator is noted over the left chest. Findings are unchanged from 02/16/2024 Lungs: No focal consolidation. Pleura: No effusion. No pneumothorax. Cardiomediastinal contours: Unremarkable Bones: No acute osseous abnormality. IMPRESSION: 1. No acute cardiopulmonary disease. 2. No change from 02/16/2024 Time of 1ST Reevaluation: 18:38 Reevaluation 1ST: Unchanged Patient Education/Counseling: Diagnosis, Treatment Family Education/Counseling: No Family Present SEPSIS Sepsis Screen Date sepsis recognized/suspect: Jul 21, 2025 Time Sepsis recognized/suspect: 1704 Recent Procedure: No On Antibiotic Therapy: No Respiratory Rate >20: No Heart Rate >90: No Temp<36 C (96.8 F) or >38.3 C: No SBP <90 or MAP <65 mmHG: No New Acute Mental Status Change: No Is the patient on CPAP, BIPAP,: No Physician Orders Electrocardigram (07/21/25 18:19) Electrocardigram (07/21/25 20:19) Troponin-I Hs (07/21/25 20:19) Chest Xray 1 View (07/21/25 17:57) Aspirin Tablet (07/21/25 19:30) Vital Signs Date Time Temp Pulse Resp B/P (MAP) Pulse Ox O2 Delivery O2 Flow Rate FiO2 07/21/25 18:42 76 07/21/25 18:25 66 07/21/25 17:07 76 07/21/25 17:05 98.9 63 17 114/79 97 98.9 Laboratory Tests Test 07/21/25 17:29 White Blood Count 7.7 10^3/uL (4.4-10.8) Departure 1 Departure Time of Disposition: 19:24 Impression: Primary Impression: Acute coronary syndrome Additional Impression: History of automatic internal cardiac defibrillator (AICD) Disposition: ADMITTED INPATIENT Admit to: Tele Condition: Guarded Discharged With: Self Comments 59-year-old male with known cardiac disease and AICD placement now with some burning substernal chest pain and he felt like his AICD might have gone off and that he might have had an episode of V-tach. His initial troponin is normal. Patient was given aspirin. Patient will need admission for further cardiac workup. Critical Care Note Critical Care Time?: Yes (35 min-critical care time only) Critical care comment: Chest painsTotal critical care time: Approximately 36 minutes Due to a high probability of clinically significant, life threatening deterioration, the patient required my highest level of preparedness to intervene emergently and I personally spent this critical care time directly and personally managing the patient. This critical care time included obtaining a history; examining the patient; pulse oximetry; ordering and review of studies; arranging urgent treatment with development of a management plan; evaluation of patient's response to treatment; frequent reassessment; and, discussions with other providers. This critical care time was performed to assess and manage the high probability of imminent, life-threatening deterioration that could result in multi-organ failure. It was exclusive of separately billable procedures and treating other patients. Stability Stability form required: No Heart Score Heart Score: Heart Score Response (Comments) Value History Moderate Suspicious 1 EKG Repolarization Disturb 1 Age 45-64 1 Risk Factors >3 or Hx ASHD 2 Troponin Normal limit 0 Total 5 I personally scribed for STEFFI TALLEY MD ([email or web address]) on 07/21/25 at 18:42. Electronically submitted by Fredy Mancini ([employer]). I personally scribed for STEFFI TALLEY MD ([email or web address]) on 07/21/25 at 19:20. Electronically submitted by Fredy Mancini ([employer]). STEFFI TALLEY MD Jul 21, 2025 18:42
--- NOTE | 2025-07-21 18:43 | DVH ---
CHEST RADIOGRAPH Indication: chest pain Technique: Single frontal view of the chest was obtained Comparison: XY CHEST XRAY 1 VIEW on DOS: 08/06/24, XY CHEST PORTABLE on DOS: 07/26/24, XY CHEST PORTAB LE on DOS: 02/16/24 FINDINGS: Lines and Tubes: Pacemaker is in place a unipolar lead in the right ventricle. Pulse generator is not ed over the left chest. Findings are unchanged from 02/16/2024 Lungs: No focal consolidation. Pleura: No effusion. No pneumothorax. Cardiomediastinal contours: Unremarkable Bones: No acute osseous abnormality. IMPRESSION: 1. No acute cardiopulmonary disease. 2. No change from 02/16/2024
[2025-07-21 18:59] LABS: Alanine Aminotransferase 21 U/L (7-40); Albumin 4.6 g/dL (3.2-4.8); Anion Gap 8 (5-15); BUN/Creatinine Ratio 11.0 (10.0-20.0); Bilirubin, Total 0.7 mg/dL (0.2-1.0); Blood Urea Nitrogen 13 mg/dL (9-23); Calcium 9.2 mg/dL (8.7-10.4); Carbon Dioxide 30 mmol/L (20-31); Chloride 103 mmol/L (98-107); Potassium 3.9 mmol/L (3.5-5.1); Sodium 141 mmol/L (136-145); Total Protein 7.1 g/dL (5.7-8.2)
[2025-07-21 19:08] LABS: Alkaline Phosphatase 147 U/L (46-116); Glucose 109 mg/dL (74-106)
[2025-07-21] MEDS ORDERED: MORPHINE SULFATE 4 MG/ML SYR/VIAL IV PRN (19:45)
[2025-07-21] MEDS ORDERED: NITROGLYCERIN 0.4 MG SL TAB SL PRN (19:45)
--- NOTE | 2025-07-21 20:07 | ECG ---
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
--- NOTE | 2025-07-21 20:07 | ECG ---
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
[2025-07-21] MEDS ORDERED: TEMAZEPAM 15 MG CAP PO PRN (21:15)
[2025-07-21] MEDS ORDERED: ONDANSETRON HCL 4 MG/2 ML VIAL IV PRN (21:15)
[2025-07-21] MEDS ORDERED: ACETAMINOPHEN 325 MG TAB PO PRN (21:15)
--- NOTE | 2025-07-21 21:17 | DVHHP2 ---
History of Present Illness Reason for Visit: Chest pain History of Present Illness 59-year-old male presents for evaluation of chest pain. Patient reports a two day history of intermittent left-sided sharp chest pain. Denies nausea or vomiting. No shortness a breath. No other acute complaints reported. Past Medical History CHF, chronic kidney disease, COPD, mi, thyroid, Past Surgical History Pacemaker, tonsillectomy, PTCA Family History Cancer, heart disease Smoke: <1 pack per day ALCOHOL: none Drugs: None Lives: with Family Review of Systems Review of Systems Review of systems are currently negative otherwise addressed in HPI. Allergies: Coded Allergies: Tramadol (Verified Allergy, Severe, MUSCLE RIGITITY, 03/14/19) Penicillins (Verified Allergy, Unknown, 11/06/14) Medications Current Medications Medications Dose Ordered Sig/Echo Route Start Time Stop Time Status Last Admin Dose Admin Nitroglycerin 0.4 mg Q5MINP PRN SL 07/21/25 19:45 Morphine Sulfate 2 mg Q30M PRN IV 07/21/25 19:45 Exam Vital Signs Vital Signs Date Time Temp Pulse Resp B/P (MAP) Pulse Ox O2 Delivery O2 Flow Rate FiO2 07/21/25 20:21 97.9 69 18 121/79 (93) 97 97.9 Exam Gen: 59-year-old male in mild distress Skin: Warm, dry, normal color and texture, no rash. HEENT: Normocephalic atraumatic, mucous membranes moist and pink. Neck: Cervical and supraclavicular nodes normal without enlargement, trachea is midline, thyroid gland is normal without masses. Pulmonary: Clear to auscultation and percussion bilaterally. Cardiac: Regular rate and rhythm. No murmur Abdomen: Soft, nontender, nondistended, bowel sounds present all 4 quadrants, no guarding, no rigidity, no organomegaly. Extremities: No cyanosis, clubbing, no edema Neuro: Cranial nerves II through XII grossly intact, normal affect and speech, no focal motor deficits. Labs/Xrays ORDERING PHYSICIAN: STEFFI TALLEY MD PROCEDURE(s): CXR1 - CHEST XRAY 1 VIEW REASON: chest pain ORDER NUMBER(s): [id number], ACCESSION NUMBER(s): [id number] CHEST RADIOGRAPH Indication: chest pain Technique: Single frontal view of the chest was obtained Comparison: XY CHEST XRAY 1 VIEW on DOS: 08/06/24, XY CHEST PORTABLE on DOS: 07/26/24, XY CHEST PORTABLE on DOS: 02/16/24 FINDINGS: Lines and Tubes: Pacemaker is in place a unipolar lead in the right ventricle. Pulse generator is noted over the left chest. Findings are unchanged from 02/16/2024 Lungs: No focal consolidation. Pleura: No effusion. No pneumothorax. Cardiomediastinal contours: Unremarkable Bones: No acute osseous abnormality. IMPRESSION: 1. No acute cardiopulmonary disease. 2. No change from 02/16/2024 Labs Test 07/21/25 18:30 07/21/25 17:29 Range/Units Troponin I High Sensitivity 6 </=54 ng/L White Blood Count 7.7 4.4-10.8 10^3/uL Red Blood Count 5.42 4.5-5.90 10^6/uL Hemoglobin 16.1 13.5-17.5 g/dL Hematocrit 45.4 41.0-53.0 % Mean Corpuscular Volume 83.7 80.0-100.0 fL Mean Corpuscular Hemoglobin 29.7 28.0-32.0 pg Mean Corpuscular Hemoglobin Concent 35.5 32.0-36.0 g/dL Red Cell Distribution Width 14.0 11.8-14.3 % Platelet Count 222 140-450 10^3/uL Mean Platelet Volume 8.6 6.9-10.8 fL Neutrophils (%) (Auto) 57.1 37.0-80.0 % Lymphocytes (%) (Auto) 30.9 10.0-50.0 % Monocytes (%) (Auto) 7.9 0.0-12.0 % Eosinophils (%) (Auto) 3.2 0.0-7.0 % Basophils (%) (Auto) 0.9 0.0-2.0 % Neutrophils # (Auto) 4.4 1.6-8.6 10 ^3/uL Lymphocytes # (Auto) 2.4 0.4-5.4 10 ^3/uL Monocytes # (Auto) 0.6 0-1.3 10 ^3/uL Eosinophils # (Auto) 0.2 0-0.8 10 ^3/uL Basophils # (Auto) 0.1 0-0.2 10 ^3/uL Nucleated Red Blood Cells 0.1 % Sodium Level 141 136-145 mmol/L Potassium Level 3.9 3.5-5.1 mmol/L Chloride Level 103 98-107 mmol/L Carbon Dioxide Level 30 20-31 mmol/L Anion Gap 8 5-15 Blood Urea Nitrogen 13 9-23 mg/dL Creatinine 1.18 0.700-1.30 mg/dL Glomerular Filtration Rate Calc 72 >90 mL/min BUN/Creatinine Ratio 11.0 10.0-20.0 Serum Glucose 109 H 74-106 mg/dL Calcium Level 9.2 8.7-10.4 mg/dL Total Bilirubin 0.7 0.2-1.0 mg/dL Aspartate Amino Transferase (AST) 21 13-40 U/L Alanine Aminotransferase (ALT) 21 7-40 U/L Alkaline Phosphatase 147 H 46-116 U/L Total Protein 7.1 5.7-8.2 g/dL Albumin 4.6 3.2-4.8 g/dL SEPSIS Sepsis Screen Date sepsis recognized/suspect: Jul 21, 2025 Time Sepsis recognized/suspect: 1704 Recent Procedure: No On Antibiotic Therapy: No Respiratory Rate >20: No Heart Rate >90: No Temp<36 C (96.8 F) or >38.3 C: No SBP <90 or MAP <65 mmHG: No New Acute Mental Status Change: No Is the patient on CPAP, BIPAP,: No Physician Orders Chest Xray 1 View (07/21/25 17:57) Admit (07/21/25 19:40) Nitroglycerin Sublingual (Ntrostat Subli (07/21/25 19:45) Stat Ekg For Chest Pain (07/21/25 19:40) Notify Md Of Changes From Base (07/21/25 19:40) Enrollment Nurse For 24 Hours (07/21/25 19:40) Emergency Dysrhythmia Protocol (07/21/25 19:40) Rhythm Strips Once Every Shift (07/21/25 19:40) Oxygen By Nasal Cannula (07/21/25 19:40) Morphine Sulfate Injection (07/21/25 19:45) Aspirin Tablet (07/22/25 10:00) Atorvastatin (Lipitor) (07/21/25 22:00) Clopidogrel Bisulfate (Plavix) (07/22/25 10:00) Vital Signs Date Time Temp Pulse Resp B/P (MAP) Pulse Ox O2 Delivery O2 Flow Rate FiO2 07/21/25 20:21 97.9 69 18 121/79 (93) 97 97.9 07/21/25 20:03 64 07/21/25 18:42 76 07/21/25 18:25 66 07/21/25 17:07 76 07/21/25 17:05 98.9 63 17 114/79 97 98.9 Laboratory Tests Test 07/21/25 17:29 White Blood Count 7.7 10^3/uL (4.4-10.8) Medications Medications Dose Ordered Sig/Echo Route Start Time Stop Time Status Last Admin Dose Admin Aspirin 162 mg ONCE ONCE PO 07/21/25 19:30 07/21/25 19:31 DC 07/21/25 20:38 162 MG Assessment/Plan Assessment/Plan Assessment Unstable angina Hypertension History of [place] Thyroid Status post pacemaker Plan Admit the patient to telemetry to the hospitalist Cardiology consultation Echocardiogram pending Resume home medications Continue treatment per orders Plan discussed with: Patient My Orders Orders - JUSTO MELENDEZ Procedure Category Date Status Time Admit ADMIT 07/21/25 Transmitted 19:40 Nitroglycerin [facility] 07/21/25 In Process Sublingual (Ntrostat 19:45 Stat Ekg For Chest [facility] 07/21/25 In Process Pain 19:40 Notify Md Of Changes [facility] 07/21/25 In Process From Base 19:40 Enrollment Nurse For [facility] 07/21/25 In Process 24 Hours 19:40 Emergency Dysrhythmia [facility] 07/21/25 In Process Protocol 19:40 Rhythm Strips Once [facility] 07/21/25 In Process Every Shift 19:40 Oxygen By Nasal RT 07/21/25 Transmitted Cannula 19:40 Morphine Sulfate [facility] 07/21/25 In Process Injection 19:45 Aspirin Tablet [facility] 07/22/25 Verified 10:00 Atorvastatin (Lipitor) [facility] 07/21/25 Verified 22:00 Clopidogrel Bisulfate [facility] 07/22/25 Verified (Plavix) 10:00 Date of Service: Jul 21, 2025 Billing Provider: JUSTO MELENDEZ Common Visit Codes: [id number] INP/OBS CARE (HIGH) JUSTO MELENDEZ Jul 21, 2025 21:17
[2025-07-21 21:30] VITALS: BP 127/89; PULSE 65; RESP 16; TEMP 97.7; O2SAT 98
[2025-07-21 21:54] LABS: Cholesterol 179 mg/dL (< 200); HDL Cholesterol 43 mg/dL (40-59)
[2025-07-21 21:55] LABS: Triglycerides 372 mg/dL (< 150)
[2025-07-21] MEDS: SACUBITRIL-VALSARTAN 24mg/26mg TAB PO SCH (23:27)
[2025-07-21] MEDS: CARVEDILOL 3.125 MG TAB PO SCH (23:27)
[2025-07-21] MEDS: ATORVASTATIN 20 MG TAB PO SCH (23:28)
[2025-07-22] VITALS (8 sets, daily range): BP systolic 96–111; BP diastolic 54–69; PULSE 63–78; RESP 16–18; TEMP 97.6–98.1; O2SAT 95–100
[2025-07-22] MEDS: LEVOTHYROXINE SODIUM 50 MCG TAB PO SCH (05:45)
[2025-07-22 07:45] LABS: Chloride 106 mmol/L (98-107); Potassium 3.8 mmol/L (3.5-5.1); Sodium 142 mmol/L (136-145)
[2025-07-22 07:46] LABS: Anion Gap 10 (5-15); Calcium 8.9 mg/dL (8.7-10.4); Carbon Dioxide 26 mmol/L (20-31)
[2025-07-22 07:51] LABS: BUN/Creatinine Ratio 12.1 (10.0-20.0); Blood Urea Nitrogen 11 mg/dL (9-23); Glucose 101 mg/dL (74-106)
[2025-07-22] MEDS: CLOPIDOGREL BISULFATE 75 MG TAB PO SCH (11:06)
[2025-07-22] MEDS: SPIRONOLACTONE 25 MG TAB PO SCH (11:39)
[2025-07-22] MEDS: FUROSEMIDE 20 MG TAB PO SCH (11:39)
--- NOTE | 2025-07-22 13:37 | DVHPN2 ---
Reviewed: Care Plan, H&P, Labs, Medications, Previous Orders Changes from previous H/P or p: No Changes General: Per HPI Objective Vitals Vital Signs Date Time Temp Pulse Resp B/P (MAP) Pulse Ox O2 Delivery O2 Flow Rate FiO2 07/22/25 13:00 98.1 68 18 111/65 (80) 99 98.1 07/21/25 22:25 Room Air* 0 21 Intake/Output Intake and Output 07/22/25 07:00 Intake Total 200 ml Balance 200 ml Intake Oral 200 ml General Appearance: Alert, Oriented X3, Cooperative, No acute distress Abdomen: Soft Neuro: Normal speech Medications Current Medications Medications Dose Ordered Sig/Echo Route Start Time Stop Time Status Last Admin Dose Admin Nitroglycerin 0.4 mg Q5MINP PRN SL 07/21/25 19:45 Morphine Sulfate 2 mg Q30M PRN IV 07/21/25 19:45 Aspirin 81 mg DAILY PO 07/22/25 10:00 07/22/25 11:06 81 MG Atorvastatin Calcium 80 mg HS PO 07/21/25 22:00 07/21/25 23:28 80 MG Clopidogrel Bisulfate 75 mg DAILY PO 07/22/25 10:00 07/22/25 11:06 75 MG Carvedilol 3.125 mg Q12HR PO 07/21/25 22:00 07/22/25 11:38 3.125 MG Furosemide 20 mg DAILY PO 07/22/25 10:00 07/22/25 11:39 20 MG Levothyroxine Sodium 125 mcg QAM@0600 PO 07/22/25 06:00 07/22/25 05:45 125 MCG Sacubitril/ Valsartan 1 tab BID PO 07/21/25 22:00 07/22/25 11:40 1 TAB Spironolactone 25 mg DAILY PO 07/22/25 10:00 07/22/25 11:39 25 MG Temazepam 15 mg QHSP PRN PO 07/21/25 21:15 Ondansetron HCl 4 mg Q4HP PRN IV 07/21/25 21:15 Acetaminophen 650 mg Q6HP PRN PO 07/21/25 21:15 Laboratory Results Laboratory Tests 07/21/25 17:29 07/22/25 06:42 Chemistry Test 07/21/25 17:29 07/22/25 06:42 Albumin 4.6 g/dL (3.2-4.8) Calcium Level 9.2 mg/dL (8.7-10.4) 8.9 mg/dL (8.7-10.4) Total Protein 7.1 g/dL (5.7-8.2) Lipid panel Test 07/21/25 18:30 Cholesterol Level 179 mg/dL (< 200) HDL Cholesterol 43 mg/dL (40-59) Triglycerides Level 372 mg/dL (< 150) H LFT Test 07/21/25 17:29 Alanine Aminotransferase (ALT) 21 U/L (7-40) Alkaline Phosphatase 147 U/L (46-116) H Aspartate Amino Transferase (AST) 21 U/L (13-40) Total Bilirubin 0.7 mg/dL (0.2-1.0) HgA1c, TSH Test 07/21/25 17:29 Thyroid Stimulating Hormone (TSH) 1.58 uIU/mL (0.55-4.78) Labs and/or images reviewed: Labs reviewed by me, Image(s) reviewed by me Assessment/Plan Assessment/Plan Unstable angina Hypertension History of [place] Thyroid Status post pacemaker Plan Admit the patient to telemetry to the hospitalist Cardiology consultation Echocardiogram pending Resume home medications Continue treatment per orders Plan discussed with: Patient Date of Service: Jul 22, 2025 Billing Provider: VENKAT KING DO Common Visit Codes: [id number] INP/OBS CARE(HIGH) VENKAT KING DO Jul 22, 2025 13:37
--- NOTE | 2025-07-22 16:23 | DVHPN2 ---
Progress Note - Dictate Date Seen: Jul 22, 2025 Medical Necessity Reason Pt with a Central, PICC or Fol: No Subjective CHEST PAIN TROPONIN NEGATIVE ECG NEGATIVE CARDIOLITE NEGATIVE vital signs Vital Sign Date Time Temp Pulse Resp B/P (MAP) Pulse Ox O2 Delivery O2 Flow Rate FiO2 07/22/25 13:00 98.1 68 18 111/65 (80) 99 98.1 07/22/25 08:00 Room Air* 0 21 Total Intake and Output 07/21/25 07/21/25 07/22/25 15:00 23:00 07:00 Intake Total 200 ml Balance 200 ml medications Current Medications Medications Dose Ordered Sig/Echo Route Start Time Stop Time Status Last Admin Dose Admin Nitroglycerin 0.4 mg Q5MINP PRN SL 07/21/25 19:45 Morphine Sulfate 2 mg Q30M PRN IV 07/21/25 19:45 Aspirin 81 mg DAILY PO 07/22/25 10:00 07/22/25 11:06 81 MG Atorvastatin Calcium 80 mg HS PO 07/21/25 22:00 07/21/25 23:28 80 MG Clopidogrel Bisulfate 75 mg DAILY PO 07/22/25 10:00 07/22/25 11:06 75 MG Carvedilol 3.125 mg Q12HR PO 07/21/25 22:00 07/22/25 11:38 3.125 MG Furosemide 20 mg DAILY PO 07/22/25 10:00 07/22/25 11:39 20 MG Levothyroxine Sodium 125 mcg QAM@0600 PO 07/22/25 06:00 07/22/25 05:45 125 MCG Sacubitril/ Valsartan 1 tab BID PO 07/21/25 22:00 07/22/25 11:40 1 TAB Spironolactone 25 mg DAILY PO 07/22/25 10:00 07/22/25 11:39 25 MG Temazepam 15 mg QHSP PRN PO 07/21/25 21:15 Ondansetron HCl 4 mg Q4HP PRN IV 07/21/25 21:15 Acetaminophen 650 mg Q6HP PRN PO 07/21/25 21:15 laboratory and microbiology Laboratory Tests 07/22/25 06:42 07/21/25 17:29 Test 07/22/25 06:42 Range/Units Serum Glucose 101 74-106 mg/dL Problem List CHEST PAIN TROPONIN NEGATIVE ECG NEGATIVE CARDIOLITE NEGATIVE Assessment/Plan WILL REVEIW OFFICE CHART CONSIDER [facility] Plan discussed with: Patient ELSA JACKSON MD Jul 22, 2025 16:23
[2025-07-23 01:00] VITALS: BP 92/61; PULSE 67; RESP 17; TEMP 97.7; O2SAT 96
[2025-07-23 05:00] VITALS: BP 98/63; PULSE 66; RESP 16; TEMP 97.7; O2SAT 95
[2025-07-23 08:00] VITALS: PULSE 63
[2025-07-23 09:00] VITALS: BP 100/61; PULSE 71; RESP 18; TEMP 98.3; O2SAT 97
[2025-07-23 13:00] VITALS: BP 132/75; PULSE 85; RESP 16; TEMP 98.2; O2SAT 98
--- NOTE | 2025-07-23 13:16 | DVHPN2 ---
Progress Note - Dictate Date Seen: Jul 23, 2025 Medical Necessity Reason Pt with a Central, PICC or Fol: No Subjective CHEST PAIN TROPONIN NEGATIVE ECG NEGATIVE CARDIOLITE NEGATIVE vital signs Vital Sign Date Time Temp Pulse Resp B/P (MAP) Pulse Ox O2 Delivery O2 Flow Rate FiO2 07/23/25 10:46 74 110/74 07/23/25 09:00 98.3 18 97 98.3 07/23/25 08:00 Room Air* 0 21 Total Intake and Output 07/22/25 07/22/25 07/23/25 15:00 23:00 07:00 Intake Total 900 ml 475 ml Balance 900 ml 475 ml medications Current Medications Medications Dose Ordered Sig/Echo Route Start Time Stop Time Status Last Admin Dose Admin Nitroglycerin 0.4 mg Q5MINP PRN SL 07/21/25 19:45 Morphine Sulfate 2 mg Q30M PRN IV 07/21/25 19:45 Aspirin 81 mg DAILY PO 07/22/25 10:00 07/23/25 10:45 81 MG Atorvastatin Calcium 80 mg HS PO 07/21/25 22:00 07/22/25 21:36 80 MG Clopidogrel Bisulfate 75 mg DAILY PO 07/22/25 10:00 07/23/25 10:43 75 MG Carvedilol 3.125 mg Q12HR PO 07/21/25 22:00 07/23/25 10:46 3.125 MG Furosemide 20 mg DAILY PO 07/22/25 10:00 07/23/25 10:45 20 MG Levothyroxine Sodium 125 mcg QAM@0600 PO 07/22/25 06:00 07/23/25 05:27 125 MCG Sacubitril/ Valsartan 1 tab BID PO 07/21/25 22:00 07/23/25 10:43 1 TAB Spironolactone 25 mg DAILY PO 07/22/25 10:00 07/23/25 10:42 25 MG Temazepam 15 mg QHSP PRN PO 07/21/25 21:15 Ondansetron HCl 4 mg Q4HP PRN IV 07/21/25 21:15 Acetaminophen 650 mg Q6HP PRN PO 07/21/25 21:15 laboratory and microbiology Laboratory Tests 07/22/25 06:42 07/21/25 17:29 Test 07/22/25 06:42 Range/Units Serum Glucose 101 74-106 mg/dL Problem List CHEST PAIN TROPONIN NEGATIVE ECG NEGATIVE CARDIOLITE NEGATIVE Assessment/Plan WILL REVEIW OFFICE CHART NO [facility] NEEDED ATYPICAL CHEST PAIN DC HOME FOLLOWUP IN 1 WEEK Plan discussed with: Patient ELSA JACKSON MD Jul 23, 2025 13:16
[2025-07-23 14:50] VITALS: BP 110/74; PULSE 74; TEMP 36.8
--- NOTE | 2025-07-23 15:03 | DVHDS2 ---
Discharge Summary Date of Admission Jul 21, 2025 at 19:40 Date of Discharge: Jul 23, 2025 Labs/Diagnostic Data: Laboratory Results Test 07/22/25 06:42 07/21/25 18:30 07/21/25 17:29 Sodium Level 142 mmol/L (136-145) Potassium Level 3.8 mmol/L (3.5-5.1) Chloride Level 106 mmol/L (98-107) Carbon Dioxide Level 26 mmol/L (20-31) Anion Gap 10 (5-15) Blood Urea Nitrogen 11 mg/dL (9-23) Creatinine 0.91 mg/dL (0.700-1.30) Glomerular Filtration Rate Calc 98 mL/min (>90) BUN/Creatinine Ratio 12.1 (10.0-20.0) Serum Glucose 101 mg/dL (74-106) Calcium Level 8.9 mg/dL (8.7-10.4) Troponin I High Sensitivity 6 ng/L (</=54) Triglycerides Level 372 mg/dL (< 150) Cholesterol Level 179 mg/dL (< 200) LDL Cholesterol 109 mg/dL (< 100) HDL Cholesterol 43 mg/dL (40-59) White Blood Count 7.7 10^3/uL (4.4-10.8) Red Blood Count 5.42 10^6/uL (4.5-5.90) Hemoglobin 16.1 g/dL (13.5-17.5) Hematocrit 45.4 % (41.0-53.0) Mean Corpuscular Volume 83.7 fL (80.0-100.0) Mean Corpuscular Hemoglobin 29.7 pg (28.0-32.0) Mean Corpuscular Hemoglobin Concent 35.5 g/dL (32.0-36.0) Red Cell Distribution Width 14.0 % (11.8-14.3) Platelet Count 222 10^3/uL (140-450) Mean Platelet Volume 8.6 fL (6.9-10.8) Neutrophils (%) (Auto) 57.1 % (37.0-80.0) Lymphocytes (%) (Auto) 30.9 % (10.0-50.0) Monocytes (%) (Auto) 7.9 % (0.0-12.0) Eosinophils (%) (Auto) 3.2 % (0.0-7.0) Basophils (%) (Auto) 0.9 % (0.0-2.0) Neutrophils # (Auto) 4.4 10 ^3/uL (1.6-8.6) Lymphocytes # (Auto) 2.4 10 ^3/uL (0.4-5.4) Monocytes # (Auto) 0.6 10 ^3/uL (0-1.3) Eosinophils # (Auto) 0.2 10 ^3/uL (0-0.8) Basophils # (Auto) 0.1 10 ^3/uL (0-0.2) Nucleated Red Blood Cells 0.1 % Total Bilirubin 0.7 mg/dL (0.2-1.0) Aspartate Amino Transferase (AST) 21 U/L (13-40) Alanine Aminotransferase (ALT) 21 U/L (7-40) Alkaline Phosphatase 147 U/L (46-116) Total Protein 7.1 g/dL (5.7-8.2) Albumin 4.6 g/dL (3.2-4.8) Thyroid Stimulating Hormone (TSH) 1.58 uIU/mL (0.55-4.78) Other Laboratory Tests 07/22/25 06:42 07/21/25 17:29 Brief Hx & Hospital Course: Assessment Unstable angina Hypertension History of [place] Thyroid Status post pacemaker Plan Admit the patient to telemetry to the hospitalist Cardiology consultation Echocardiogram pending Resume home medications Continue treatment per orders Condition at Discharge: Fair Final Diagnosis/Problems List CHEST PAIN TROPONIN NEGATIVE ECG NEGATIVE CARDIOLITE NEGATIVE Discharge Disposition: Home Discharge Instruct/Medications Diet: Cardiac 2g Na,low cholest Activity: Light activity Follow Up/Referral: 1 WEEK Medications: CONT HOME MEDS Scheduled Aspirin (Aspir-Low), 81 MG PO DAILY Atorvastatin Calcium (Atorvastatin Calcium), 1 TAB PO DAILY, (Reported) Cholecalciferol (Vitamin D-3), 1 TAB PO DAILY, (Reported) Clopidogrel Bisulfate (Clopidogrel), 75 MG PO DAILY Dapagliflozin Propanediol (Farxiga), 10 MG PO DAILY, (Reported) Famotidine (Famotidine), 40 MG PO HS, (Reported) Fluticasone Propionate (Nasal) (Fluticasone Propionate), 1 SPRAY EACHNOSTRI BID, (Reported) Furosemide (Lasix), 1 TAB PO QAM, (Reported) Levothyroxine Sodium (Levothyroxine Sodium), 1 TAB PO DAILY, (Reported) Magnesium Oxide (Magnesium Oxide), 1 TAB PO DAILY, (Reported) Sacubitril-Valsartan (Entresto 24-26 mg), 1 TAB PO BID Sertraline Hcl (Zoloft), 50 MG PO DAILY, (Reported) Spironolactone (Aldactone), 25 MG PO DAILY Sulfamethoxazole W/Trimethopri (Bactrim Ds Tablet), 1 TAB PO BID Scheduled PRN Nitroglycerin (Ntrostat Sublingual), 0.3 MG SL UD PRN for FOR CHEST PAIN, (Reported) Ondansetron HCl (Ondansetron), 4 MG PO TID PRN Discharge Statement: "Patient was advised to return to the ER or call 911 if any headaches, dizziness, shortness of breath, chest pain, abdominal pain, bleeding, fevers, or worsening of medical condition. Patient was counseled about treatment plan, medications, possible side effects, patientverbalized understanding. All questions were answered to the best of my ability. This discharge took greater then 30 minutes in planning, reviewing documentation, counseling the patient, and discussing with other team members." ASSESSMENT ASSESSMENT Assessment CHEST PAIN TROPONIN NEGATIVE ECG NEGATIVE CARDIOLITE NEGATIVE Date of Service: Jul 23, 2025 Billing Provider: VENKAT KING DO Common Visit Codes: [id number] DISCH DAY >30min VENKAT KING DO Jul 23, 2025 15:03
--- NOTE | 2025-07-28 13:23 | DVHSR ---
APPROVED REPORT EXAM: Two-dimensional and M-mode echocardiogram with Doppler and color Doppler. Blood Pressure: 103/64 mmHg INDICATION Chest Pain RISK FACTORS Height: 5'7", Weight: 196 DIMENSIONS LVDd6.2 (3.8-5.7cm)LA (2D)3.4 (1.9-4.0cm)Aortic Root3.6 (2.0-3.7cm) LVDs5.1 (2.5-4.0cm)LA (MM) (1.9-4.0cm)Aortic Cusp Exc1.9 (1.5-2.0cm) EF (%) 35.0 (55-70%)Rt. Atrium3.5 (1.9-4.0cm)Asc. Aorta3.2 cm IVSd0.7 (0.7-1.1cm)RV (D)2.9 (1.8-2.4cm) Mitral Valve MitralMitral Stenosis E wave0.53m/sMV Mean GR.mmHg A wave1.09m/sMV Peak GR.mmHg E/A ratio0.52D MVAcm2 DECEL [id number] 1/2 Timems Aortic Valve Aortic ValveAortic Stenosis V10.64m/Danitza Mean GR.5mmHg V21.58m/Danitza Peak GR.10mmHg LVOT Diameter2.3 (1.8-2.4cm)Doppler AVA1.68cm2 Pulmonic Valve V20.75m/s Other Information Quality : Technically LimitedRhythm : Technically limited study due to body habitus. Conclusion LVE EF 35% MILD TR MILD MR
== END 2025-07-23 16:05 | disposition home or self-care (01) | DRG 198 ==
LOC: ER 17:01 → OVERFLOW 19:40 → TELE-WESTW 21:27
PROVIDERS: ADMIT Internal Medicine; ATTEND Internal Medicine
DX: I25.110 Atherosclerotic heart disease of native coronary artery with unstable angina pectoris (principal); I13.0 Hypertensive heart and chronic kidney disease with heart failure and stage 1 through stage 4 chronic kidney disease, or unspecified chronic kidney disease; I50.9 Heart failure, unspecified; F17.210 Nicotine dependence, cigarettes, uncomplicated; N18.9 Chronic kidney disease, unspecified; J44.9 Chronic obstructive pulmonary disease, unspecified; Z88.0 Allergy status to penicillin; I25.2 Old myocardial infarction; Z95.810 Presence of automatic (implantable) cardiac defibrillator; Z79.899 Other long term (current) drug therapy
CPT/HCPCS: 36415; 71045; 80048; 80053; 80061; 84443; 84484; 85025; 93005; 93306; 99291; G0378